=== PATIENT | female | born 1975 | race American Indian/Alaskan Native ===

== ENCOUNTER 2020-06-25 17:49 | Emergency (ER) | payer OTHER, SELFPAY | END 2020-06-25 19:19 | disposition left against medical advice (07) | PROVIDERS: Emergency Provider Emergency Medicine | DX: R10.9 Unspecified abdominal pain (principal) ==

== ENCOUNTER 2020-06-26 09:16 | Emergency (ER) | payer OTHER, SELFPAY ==
--- NOTE | 2020-06-26 09:27 | ED.ABDPAIN ---
HPI - Abdominal Pain General Chief Complaint: Abdominal Pain Stated Complaint: abd pain, bruising Time Seen by Provider: 06/26/20 09:19 Source: patient Mode of arrival: ambulatory Limitations: no limitations History of Present Illness HPI narrative: This is a 44-year-old female with past medical history significant for asthma/COPD, gastroesophageal reflux disease, arthritis, anxiety disorder, depression and surgical history of section and tubal ligation presenting ambulatory with complaint of epigastric abdominal pain ongoing for the past 3 days. States history of reflux will intermittently take a PPI and over the past 3 days or so she has had worsening epigastric pain that is described as burning like and will cause her to be nauseated. States she did take an antacid yesterday during the pain episode after drinking coffee and improved. There is no diarrhea. There is no fever. No recent travel. MD elicited complaint: abdominal pain Pertinent past history: gastritis Onset (ago): day(s) Pain Consistency: intermittent Location: epigastric Severity: mild Quality: burning Radiation: epigastric Migration to: no migration Exacerbating factors: eating Relieving factors: medication and rest Associated symptoms: denies other symptoms Related Data Previous Rx's Medication Instructions Recorded sucralfate [Carafate] 1 g PO BID #14 tab 06/26/20 Allergies Allergy/AdvReac Type Severity Reaction Status Date / Time No Known Allergies Allergy Unverified 03/13/20 16:22 Review of Systems Review of Systems Constitutional: No Weight loss, No Fever, No Chills, No Night Sweats, No Fatigue, No Malaise ENT/Mouth: No Hearing loss, No Ear Pain, No Nasal Congestion, No Sinus Pain, No Hoarseness, No sore throat, No Rhinorrhea, No Swallowing Difficulty Eyes: No Eye Pain, No Swelling, No Redness, No Foreign Body, No Discharge, No Vision Changes Cardiovascular: No Chest Pain, No SOB, No Dyspnea on Exertion, No Orthopnea, No Edema, No Palpitations Respiratory: No Cough, No Sputum, No Wheezing, No Smoke Exposure, No Dyspnea Gastrointestinal: + Nausea, No Vomiting, No Diarrhea, No Constipation, + abdominal Pain, No Hematochezia, No Melena Genitourinary: no irregular bleeding, No Dysuria, No Urinary Frequency, No Hematuria, No Urinary Incontinence, No Urgency, No Flank Pain, No Urinary Flow Changes, No Hesitancy Musculoskeletal: No joint pain, No Myalgias, No Joint Swelling Skin: No Skin Lesions, No rash Neuro: No Weakness, No Numbness, No Paresthesias, No Loss of Consciousness, No Dizziness, No Headache Psych: No Social Issues Heme/Lymph: No Bruising, No Bleeding,No Lymphadenopathy Endocrine: No Polyuria, No Polydipsia, No Temperature Intolerance Yes all other systems are reviewed and are negative Physical Exam Vital Signs: Vital Signs: Last Vital Signs Temp 98.0 F 06/26/20 09:30 Pulse 91 06/26/20 09:30 Resp 16 06/26/20 09:30 BP 123/70 06/26/20 09:30 Pulse Ox 99 06/26/20 09:30 Body Mass Index 34.3 Reviewed Const: General: cooperative and healthy appearing; No acute distress or intoxicated appearing Nutritional Appearance: average body habitus Orientation/consciousness: patient oriented x3 HENMT: Head: Yes normal to inspection Ears: hearing grossly normal bilaterally Eyes: General: appearance normal, both eyes and all related structures Visual Boucher: normal visual boucher by confrontation Neck: Neck: Yes normal visual inspection, No positive Brudzinski's sign, No positive Kernig's sign and No tender Thyroid: Thyroid normal Chest: Chest palpation & inspection: normal inspection of the chest Resp: Effort & Inspection: normal respiratory effort Auscultation: clear to auscultation bilaterally Cardio: Jugular venous distension: no JVD Rhythm: regular rhythm Heart sounds: S1 normal heart sound present and S2 normal heart sound present GI: Inspection: Yes normal to inspection Palpation (GI): Soft to palpation Percussion: Yes normal to percussion Auscultation: normal bowel sounds : General: Yes no CVA tenderness Back/Spine/Pelvis: Back: no CVA tenderness Skin: General skin exam: no rashes or lesions noted Neuro: General: patient oriented x3 Extrem: General: Yes normal to inspection Course Course Course Narrative: Reports feeling significant better after GI cocktail. Essentially no pain at this time. Repeat abdominal exam benign. Hematology study shows that there has been a drop in hemoglobin from 12-10.6 from 2017. Given a drop digital rectal exam was done and negative for occult blood. She does states that she has been on Prilosec on off for standing. Time and does not feel that it works. At this time will give her short course of Carafate and GI follow-up for possible upper GI study. MDM - Abdominal Pain MDM Narrative Medical decision making narrative: Vitals stable. Exam overall reassuring. Will check labs including liver function test and treat with GI cocktail. Differential Diagnosis Differential diagnosis: Likely abdominal pain and gastritis (GERD); Unlikely aortic dissection, acute appendicitis, bowel perforation, calculus of kidney, constipation, diverticulitis, gastroenteritis, pancreatitis, peptic ulcer disease, renal colic and small bowel obstruction Medical Records Attestation: I reviewed the patient's medical records. Lab Data Attestation: I reviewed the patient's lab results. Result diagrams: 06/26/20 09:40 06/26/20 09:40 Labs: Lab Results 06/26/20 06/26/20 06/26/20 Range/Units 09:37 09:40 09:40 WBC 4.7 L (4.8-10.8) X10*3/uL RBC 4.12 L (4.20-5.50) X10*6/uL Hgb 10.6 L (12.0-16.0) g/dl Hct 34.7 L (37-47) % MCV 84.2 (80-98) fL MCH 25.7 L (27.0-33.0) pg MCHC 30.5 L (31.0-35.0) g/dl RDW 15.5 (11.0-16.0) % Plt Count 221 (160-400) X10*3/uL MPV 11.3 (9.4-12.3) fL Immature Gran % (Auto) 0.2 (0.0-0.4) % Neut % (Auto) 60.0 (45-73) % Lymph % (Auto) 31.1 (20-40) % [place] % (Auto) 6.4 (2-11) % Eos % (Auto) 1.7 (0-4) % Baso % (Auto) 0.6 (0-2) % Lymph # (Auto) 1.5 (1.2-4.9) X10*3/uL [place] # (Auto) 0.3 (0.1-1.2) X10*3/uL Eos # (Auto) 0.1 (0.0-0.4) X10*3/uL Baso # (Auto) 0.0 (0.0-0.2) X10*3/uL Abs Immat Gran (auto) 0.01 (0.00-0.03) X10*3/uL Absolute Neuts (auto) 2.8 (2.0-8.3) X10*3/uL Absolute Nucleated RBC 0.000 (0.0-0.012) X10*3/uL Nucleated RBC % (auto) 0.0 (0.0-0.2) /100WBC PT 11.7 (10.8-13.0) SEC INR 1.0 (0.9-1.1) APTT 31.7 (24.1-38.0) SEC Sodium (135-145) mmol/L Potassium (3.3-5.1) mmol/l Chloride (96-108) mmol/L Carbon Dioxide (22-29) mmol/L Anion Gap (12-20) BUN (9-16) mg/dL Creatinine (0.5-1.4) mg/dL Estim Creat Clear Calc Estimated GFR Random Glucose (60-115) mg/dL Calcium (8.4-10.2) mg/dL Total Bilirubin (0.0-1.0) mg/dL AST (5-31) U/L ALT (0-31) U/L Alkaline Phosphatase (39-117) U/L Total Protein (6.5-8.0) g/dL Albumin (3.5-5.0) g/dL Urine Color YELLOW Urine Appearance HAZY Urine pH 6.0 (5.0-8.0) Ur Specific [place] >= 1.030 H (1.005-1.025) Urine Protein NEG (NEG-TRACE) MG/DL Urine Glucose (UA) NEG (NEG) MG/DL Urine Ketones NEG (NEG) MG/DL Urine Blood 1+ H (NEG) Urine Nitrite NEG (NEG) Ur Leukocyte Esterase NEG (NEG) Urine RBC 0-2 (0) /HPF Urine WBC 0 (0-4) /HPF Ur Squamous Epith Cells 2+ /LPF Urine Bacteria NONE /LPF 06/26/20 Range/Units 09:40 WBC (4.8-10.8) X10*3/uL RBC (4.20-5.50) X10*6/uL Hgb (12.0-16.0) g/dl Hct (37-47) % MCV (80-98) fL MCH (27.0-33.0) pg MCHC (31.0-35.0) g/dl RDW (11.0-16.0) % Plt Count (160-400) X10*3/uL MPV (9.4-12.3) fL Immature Gran % (Auto) (0.0-0.4) % Neut % (Auto) (45-73) % Lymph % (Auto) (20-40) % [place] % (Auto) (2-11) % Eos % (Auto) (0-4) % Baso % (Auto) (0-2) % Lymph # (Auto) (1.2-4.9) X10*3/uL [place] # (Auto) (0.1-1.2) X10*3/uL Eos # (Auto) (0.0-0.4) X10*3/uL Baso # (Auto) (0.0-0.2) X10*3/uL Abs Immat Gran (auto) (0.00-0.03) X10*3/uL Absolute Neuts (auto) (2.0-8.3) X10*3/uL Absolute Nucleated RBC (0.0-0.012) X10*3/uL Nucleated RBC % (auto) (0.0-0.2) /100WBC PT (10.8-13.0) SEC INR (0.9-1.1) APTT (24.1-38.0) SEC Sodium 140 (135-145) mmol/L Potassium 4.3 (3.3-5.1) mmol/l Chloride 107 (96-108) mmol/L Carbon Dioxide 26 (22-29) mmol/L Anion Gap 11 L (12-20) BUN 11 (9-16) mg/dL Creatinine 0.83 (0.5-1.4) mg/dL Estim Creat Clear Calc 95.3 Estimated GFR > 60 Random Glucose 91 (60-115) mg/dL Calcium 8.4 (8.4-10.2) mg/dL Total Bilirubin 0.3 (0.0-1.0) mg/dL AST 20 (5-31) U/L ALT 21 (0-31) U/L Alkaline Phosphatase 85 (39-117) U/L Total Protein 6.6 (6.5-8.0) g/dL Albumin 3.9 (3.5-5.0) g/dL Urine Color Urine Appearance Urine pH (5.0-8.0) Ur Specific [place] (1.005-1.025) Urine Protein (NEG-TRACE) MG/DL Urine Glucose (UA) (NEG) MG/DL Urine Ketones (NEG) MG/DL Urine Blood (NEG) Urine Nitrite (NEG) Ur Leukocyte Esterase (NEG) Urine RBC (0) /HPF Urine WBC (0-4) /HPF Ur Squamous Epith Cells /LPF Urine Bacteria /LPF Discharge Plan Discharge Clinical Impression: Abdominal pain, epigastric Patient Disposition: Home, Self-Care Instructions: Diet for Stomach Ulcers and Gastritis (ED), Gastroesophageal Reflux Disease (ED), Abdominal Pain (ED) Additional Instructions: Balanced diet Avoid any large meals, caffeinated drinks, spicy or greasy foods Take your antibiotics as prescribed Return if any concerns or worsening symptoms Follow-up with GI as discussed Thank you Prescriptions: New sucralfate [Carafate] 1 gram tablet 1 g PO BID Qty: 14 RF: 0 Referrals: Shawna Bashir MD [Physician] - [facility] Past Medical History Medical History Anxiety Arthritis COPD (chronic obstructive pulmonary disease) Depressed GERD (gastroesophageal reflux disease) Social History Social History Alcohol intake: never Smoked in Last 30 Days: No Use of substances other than those prescribed or required for medical reasons: No Advance Directives: No Advance Directives Information Provided: No
[2020-06-26 09:30] VITALS: BP 123/70; PULSE 91; RESP 16; TEMP 36.7; O2SAT 99; BMI 34.3
[2020-06-26 09:50] LABS: Basophils Percent Auto 0.6 % (0-2); Eosinophils Absolute Auto 0.1 X10*3/uL (0.0-0.4); Eosinophils Percent Auto 1.7 % (0-4); Hematocrit 34.7 % (37-47); Hemoglobin 10.6 g/dl (12.0-16.0); Imm Gran Abs Auto 0.01 X10*3/uL (0.00-0.03); Imm Gran Pct Auto 0.2 % (0.0-0.4); Lymphocytes Absolute Auto 1.5 X10*3/uL (1.2-4.9); Lymphocytes Percent Auto 31.1 % (20-40); MANUAL DIFF FLAG NO; Mean Corpuscular HGB Conc 30.5 g/dl (31.0-35.0); Mean Corpuscular Hemoglobin 25.7 pg (27.0-33.0); Mean Corpuscular Volume 84.2 fL (80-98); Mean Platelet Volume 11.3 fL (9.4-12.3); Monocytes Absolute Auto 0.3 X10*3/uL (0.1-1.2); Monocytes Percent Auto 6.4 % (2-11); Neutrophils Absolute Auto 2.8 X10*3/uL (2.0-8.3); Platelet Count 221 X10*3/uL (160-400); Red Blood Count 4.12 X10*6/uL (4.20-5.50); Red Cell Distribution Width 15.5 % (11.0-16.0); White Blood Count 4.7 X10*3/uL (4.8-10.8)
[2020-06-26 09:51] LABS: Glucose Urine UA NEG (NEG); Leukocyte Esterase Urine NEG (NEG); Nitrite Urine NEG (NEG); Specific Gravity - Urine >= 1.030 (1.005-1.025); Urine Blood 1+ (NEG); Urine Ketones NEG (NEG); Urine Protein NEG (NEG-TRACE)
[2020-06-26 09:53] LABS: Appearance Urine HAZY; Color Urine YELLOW
[2020-06-26 09:56] LABS: Prothrombin Time 11.7 SEC (10.8-13.0)
[2020-06-26 09:58] LABS: Partial Thromboplastin Time 31.7 SEC (24.1-38.0)
[2020-06-26 10:03] LABS: RBC Urine 0-2 /HPF (0); Squamous Epithelial Cell Urine 2+ /LPF; WBC Urine 0 /HPF (0-4)
[2020-06-26] MEDS: Magnesium Hydrox/Alum Hydrox 30 ML ORAL.SUSP PO (10:10)
[2020-06-26] MEDS: Lidocaine HCl Viscous 2 % 15 ML SOLUTION 10 ML MUCOUS MEM (10:10)
[2020-06-26 10:28] LABS: Alanine Aminotransferase 21 U/L (0-31); Albumin Level 3.9 g/dL (3.5-5.0); Alkaline Phosphatase 85 U/L (39-117); Anion Gap 11 (12-20); Aspartate Amino Transferase 20 U/L (5-31); Bilirubin Total 0.3 mg/dL (0.0-1.0); Blood Urea Nitrogen 11 mg/dL (9-16); Calcium 8.4 mg/dL (8.4-10.2); Carbon Dioxide 26 mmol/L (22-29); Chloride 107 mmol/L (96-108); Creatinine Clr Calc Pharmacy 95.3; Estimated Glomerular Filt Rate > 60; Glucose Random 91 mg/dL (60-115); Potassium 4.3 mmol/l (3.3-5.1); Sodium 140 mmol/L (135-145); Total Protein 6.6 g/dL (6.5-8.0)
== END 2020-06-26 11:09 | disposition home or self-care (01) ==
PROVIDERS: Nurse Practitioner Primary Care; Emergency Provider Emergency Medicine Emergency Medical Services; PCP Physician Assistant
DX: R10.13 Epigastric pain (principal); Z79.899 Other long term (current) drug therapy
CPT/HCPCS: 36415; 80053; 81001; 85025; 85610; 85730; 99283; 99284

== ENCOUNTER → 2020-08-06 10:25 | Outpatient (BNVA) | payer OTHER, SELFPAY | PROVIDERS: PCP Physician Assistant; Visit Provider Physician Assistant | DX: E66.9 Obesity, unspecified (principal); K21.9 Gastro-esophageal reflux disease without esophagitis; Z98.890 Other specified postprocedural states | CPT/HCPCS: 99202 ==

== ENCOUNTER 2020-08-21 11:30 | Emergency (ER) | payer OTHER, SELFPAY ==
[2020-08-21 11:32] VITALS: BP 158/83; PULSE 85; RESP 18; TEMP 36.7; O2SAT 97; BMI 35.2
--- NOTE | 2020-08-21 12:09 | ED.DIZZY ---
HPI - Dizziness General Chief Complaint: Dizziness Stated Complaint: light headed and weak Time Seen by Provider: 08/21/20 12:04 Source: patient Mode of arrival: ambulatory Limitations: no limitations History of Present Illness HPI Narrative: This is a 44-year-old female with past medical history significant for asthma/COPD, gastroesophageal reflux disease, arthritis, anxiety disorder, depression and surgical history of section and tubal ligation also recent dx of Gallstones being followed by GI and [place] [facility] [place] for elective cholecystectomy on August 27 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 There is no neck pain, headache or fever since. There is no ear pain, vision changes, chest pain, abdominal pain, nausea or vomiting. MD elicited complaint: dizziness Onset (ago): day(s) Timing: gradual onset Severity: mild Description: room spinning Context: other (Recent COVID-19 vaccination) History of similar symptoms: No Relieving factors: rest Associated symptoms: denies other symptoms Related Data Home Medications Medication Instructions Recorded Confirmed albuterol sulfate 90 mcg/actuation INHALATION 08/06/20 08/06/20 aerosol inhaler flu vacc [id number] 6mos up(PF) ml IM 08/06/20 08/06/20 ipratropium 0.5 mg-albuterol 3 mg ml INHALATION 08/06/20 08/06/20 (2.5 mg base)/3 mL nebulization soln montelukast 10 mg tablet 10 mg PO DAILY 08/06/20 08/06/20 omeprazole 40 mg capsule,delayed 40 mg PO DAILY 08/06/20 08/06/20 release umeclidinium 62.5 mcg/actuation 1 inh PO DAILY 08/06/20 08/06/20 blister powder for inhalation Previous Rx's Medication Instructions Recorded sucralfate [Carafate] 1 g PO BID #14 tab 06/26/20 meclizine 25 mg PO DAILY PRN #10 tab 08/21/20 Allergies Allergy/AdvReac Type Severity Reaction Status Date / Time No Known Allergies Allergy Unverified 08/06/20 10:36 Review of Systems Review of Systems: Constitutional: No Weight loss, No Fever, No Chills, No Night Sweats, No Fatigue, No Malaise ENT/Mouth: No Hearing loss, No Ear Pain, No Nasal Congestion, No Sinus Pain, No Hoarseness, No sore throat, No Rhinorrhea, No Swallowing Difficulty Eyes: No Eye Pain, No Swelling, No Redness, No Foreign Body, No Discharge, No Vision Changes Cardiovascular: No Chest Pain, No SOB, No Dyspnea on Exertion, No Orthopnea, No Edema, No Palpitations Respiratory: No Cough, No Sputum, No Wheezing, No Dyspnea Gastrointestinal: No Nausea, No Vomiting, No Diarrhea, No Constipation, No abdominal Pain, No Hematochezia, No Melena Genitourinary: no irregular bleeding, No Dysuria, No Urinary Frequency, No Hematuria, No Urinary Incontinence, No Urgency, No Flank Pain, No Urinary Flow Changes, No Hesitancy Musculoskeletal: No joint pain, No Myalgias, No Joint Swelling Skin: No Skin Lesions, No rash Neuro: No Weakness, No Numbness, No Paresthesias, No Loss of Consciousness, + Dizziness as noted per HPI, No Headache Psych: No Social Issues Heme/Lymph: No Bruising, No Bleeding,No Lymphadenopathy Endocrine: No Polyuria, No Polydipsia, No Temperature Intolerance Yes all other systems are reviewed and are negative ENT: Reports Normal hearing present Neurologic: Reports Normal hearing present and Reports Abnormal speech present [facility] Past Medical History Medical History (Updated 08/21/20 @ 13:30 by Minesh Royal NP) Anxiety Arthritis COPD (chronic obstructive pulmonary disease) Depressed GERD (gastroesophageal reflux disease) Surgical History (Updated 08/21/20 @ 11:36 by Tyrell Metz) Hx of section Family History Family History (Updated 08/06/20 @ 10:42 by THAI Petersen) Mother Kidney failure COPD with asthma Heart disease Father No problems noted. Sister No problems noted. Sister No problems noted. Brother No problems noted. Son No problems noted. Son No problems noted. Daughter No problems noted. Daughter No problems noted. Daughter No problems noted. Daughter No problems noted. Daughter No problems noted. Daughter No problems noted. Social History Social History (Updated 08/06/20 @ 10:42 by Fernando J Laguna Amanda, RMA) Alcohol intake: never Smoking Status: Current every day smoker Use of substances other than those prescribed or required for medical reasons: No Advance Directives: No Advance Directives Information Provided: No Physical Exam Vital Signs: Vital Signs: Last Vital Signs Temp 98.1 F 08/21/20 11:32 Pulse 85 08/21/20 11:32 Resp 18 08/21/20 11:32 BP 158/83 H 08/21/20 11:32 Pulse Ox 97 08/21/20 11:32 Body Mass Index 35.2 Reviewed Const: General: cooperative and healthy appearing; No acute distress or intoxicated appearing Nutritional Appearance: average body habitus Orientation/consciousness: patient oriented x3 HENMT: Head: Yes normal to inspection Ears: hearing grossly normal bilaterally Eyes: General: appearance normal, both eyes and all related structures Visual Anderson: normal visual anderson by confrontation Pupils: Equal, round and reactive pupils present EOM: No Nystagmus present (Negative Mcalester-Hallpike) Neck: Neck: Yes normal visual inspection, Yes no meningeal signs, No positive Brudzinski's sign, No positive Kernig's sign and No tender Thyroid: Thyroid normal Chest: Chest palpation & inspection: normal inspection of the chest Resp: Effort & Inspection: normal respiratory effort Auscultation: clear to auscultation bilaterally Cardio: Jugular venous distension: no JVD Rhythm: regular rhythm Heart sounds: S1 normal heart sound present and S2 normal heart sound present GI: Inspection: Yes normal to inspection Palpation (GI): Soft to palpation Percussion: Yes normal to percussion Auscultation: normal bowel sounds : General: Yes no CVA tenderness Back/Spine/Pelvis: Back: no CVA tenderness Skin: General skin exam: no rashes or lesions noted Neuro: General: patient oriented x3, gait normal, moves all extremities, Normal light touch and pain sensation, no meningeal signs, no focal motor deficits, CN's II-XI intact bilaterally, deep tendon reflexes 2+ bilaterally and No Jen Hallpike Cranial nerves: Yes CN's II-XII intact bilaterally, Yes Facial sensation intact/muscles of mastication intact, Yes Intact sense of smell present, Yes Equal, round and reactive pupils present, Yes Normal accommodation reflex present, Yes Bilaterally intact EOM present, Yes Nystagmus not present, Yes Normal facial strength present, Yes Midline tongue present, Yes Normal gag reflex present, Yes Symmetric palate elevation present, Yes Normal hearing present, Yes Ability to bilaterally rotate head present, Yes Ability to bilaterally elevate shoulders present, Yes Individual cranial nerve findings present and No Nystagmus present (Negative Mcalester-Hallpike) Cognition (Neuro): normal cognition Speech: Abnormal speech present Gait exam (Neuro): Normal gait present Motor exam (neuro): 5/5 motor strength present throughout Sensory Exam: Normal double simultaneous stimulation for sensation Extrem: General: Yes normal to inspection NIH Stroke Scale Internal: Initial- Upon Arrival Level of Consciousness: Alert Level of Consciousness Questions: Answers both questions correctly Level of Consciousness Commands: Performs both tasks correctly Best Gaze: Normal Visual: No visual loss Facial Palsy: Normal Motor Arm (Right): No drift Motor Arm (Left): No drift Motor Leg (Right): No drift Motor Leg (Left): No drift Limb Ataxia: Absent Sensory: Normal Best Language: No aphasia Dysarthia: Normal Extinction and Inattention: No abnormality Score: 0 MDM - Dizziness MDM Narrative Medical decision making narrative: Adverse reaction versus mild side effects from COVID-19 vaccination no focal neurological findings in fact feels better. Ambulated around the ED with steady gait. No findings to suggest acute CVA or cerebellar involvement. Will treat with symptomatic management, clear red flag symptoms reviewed with her as to when to return and follow-up as well. She feels comfortable plan. Stable for discharge. Differential Diagnosis Differential diagnosis: Likely adverse reaction to drug and benign paroxysmal positional vertigo; Unlikely orthostatic hypotension, vertebral basilar insufficiency, cerebrovascular accident, acute vestibular neuronitis and transient cerebral ischemia Medical Records Attestation: I reviewed the patient's medical records. Lab Data Attestation: I reviewed the patient's lab results. Discharge Plan Discharge Clinical Impression: Adverse reaction to drug Qualifiers: Encounter type: initial encounter Qualified Code(s): T50.905A - Adverse effect of unspecified drugs, medicaments and biological substances, initial encounter Patient Disposition: Home, Self-Care Instructions: Adverse Drug Reaction (ED) Additional Instructions: Your likely experiencing very mild side effects from COVID vaccine ([employer]) Home care instructions reviewed Return if any concerns or worsening symptoms Follow up as instructed Thank Prescriptions: New meclizine 25 mg tablet 25 mg PO DAILY PRN (Reason: dizziness) Qty: 10 RF: 0 No Action sucralfate [Carafate] 1 gram tablet 1 g PO BID Qty: 14 RF: 0 albuterol sulfate 90 mcg/actuation HFA aerosol inhaler inhalation RF: 0 montelukast 10 mg tablet 10 mg PO DAILY RF: 0 ipratropium-albuterol 0.5 mg-3 mg(2.5 mg base)/3 mL solution for nebulization inhalation RF: 0 omeprazole 40 mg capsule,delayed release(DR/EC) 40 mg PO DAILY RF: 0 Incruse Ellipta 62.5 mcg/actuation blister with device 1 inh PO DAILY RF: 0 Fluzone Quad [id number] (PF) 60 mcg (15 mcg x 4)/0.5 mL syringe IM RF: 0 Referrals: Richmond Prince MD [Primary Care Provider] - 5 days Stand Alone Forms: Work/School Release
[2020-08-21] MEDS: Meclizine HCl 25 MG TABLET PO (12:47)
== END 2020-08-21 13:39 | disposition home or self-care (01) ==
PROVIDERS: Emergency Provider Emergency Medicine; PCP Internal Medicine
DX: R42 Dizziness and giddiness (principal); T50.Z95A Adverse effect of other vaccines and biological substances, initial encounter; Y92.9 Unspecified place or not applicable
CPT/HCPCS: 99283

== ENCOUNTER 2020-12-16 22:56 | Emergency (ER) | payer OTHER, SELFPAY ==
--- NOTE | 2020-12-16 23:40 | ED.SKABFB ---
HPI - Skin/Abscess/Foreign Bdy General Chief complaint: Skin/Abscess/Foreign Body Stated complaint: Rash Time Seen by Provider: 12/16/20 23:27 Source: patient Mode of arrival: ambulatory Limitations: no limitations History of Present Illness HPI narrative: Patient presents to the ED for itchy rash on neck since Tuesday. Patient states rash occurred after putting a shirt that was tight on her neck. Patient denies rash on rest of her body body. Patient denies any swelling of lips, swelling of tongue, shortness of breath, or sensation of throat closing. Related Data Home Medications Medication Instructions Recorded Confirmed albuterol sulfate 90 mcg/actuation INHALATION 08/06/20 08/06/20 aerosol inhaler flu vacc [id number] 6mos up(PF) ml IM 08/06/20 08/06/20 ipratropium 0.5 mg-albuterol 3 mg ml INHALATION 08/06/20 08/06/20 (2.5 mg base)/3 mL nebulization soln montelukast 10 mg tablet 10 mg PO DAILY 08/06/20 08/06/20 omeprazole 40 mg capsule,delayed 40 mg PO DAILY 08/06/20 08/06/20 release umeclidinium 62.5 mcg/actuation 1 inh PO DAILY 08/06/20 08/06/20 blister powder for inhalation Previous Rx's Medication Instructions Recorded sucralfate [Carafate] 1 g PO BID #14 tab 06/26/20 meclizine 25 mg PO DAILY PRN #10 tab 08/21/20 diphenhydramine HCl [Benadryl] 25 mg PO BEDTIME PRN #30 cap 12/17/20 famotidine [Pepcid] 20 mg PO BID #20 tab 12/17/20 hydrocortisone 1 appl TOPICAL BID PRN 9 Days #20 g 12/17/20 Allergies Allergy/AdvReac Type Severity Reaction Status Date / Time No Known Allergies Allergy Verified 12/17/20 00:03 Review of Systems Constitutional: Constitutional: Reports as per HPI and Reports no additional constitutional complaints Eyes: Eyes: Reports as per HPI and Reports no additional eye complaints ENT: Reports system reviewed and no additional complaints, except as documented and Reports as per HPI Comments: Neck rash Cardiovascular: Cardiovascular: Reports as per HPI and Reports no additional cardiovascular complaints Respiratory: Respiratory: Reports as per HPI and Reports no additional respiratory complaints Gastrointestinal: Gastrointestinal: Reports as per HPI and Reports no additional gastrointestinal complaints Genitourinary: Genitourinary: Reports no additional female genitourinary complaints and Reports as per HPI Musculoskeletal: Musculoskeletal: Reports no additional musculoskeletal complaints and Reports as per HPI Neurologic: Reports system reviewed and no additional complaints, except as documented and Reports as per HPI Psychiatric: Psychiatric: Reports no additional psychiatric complaints and Reports as per HPI [facility] Past Medical History Medical History (Updated 12/16/20 @ 23:59 by ANN Perez) Anxiety Arthritis COPD (chronic obstructive pulmonary disease) Depressed GERD (gastroesophageal reflux disease) Surgical History (Updated 08/21/20 @ 11:36 by Tyrell Metz) Hx of section Family History Family History (Updated 08/06/20 @ 10:42 by Fernando Patel [facility]) Mother Kidney failure COPD with asthma Heart disease Father No problems noted. Sister No problems noted. Sister No problems noted. Brother No problems noted. Son No problems noted. Son No problems noted. Daughter No problems noted. Daughter No problems noted. Daughter No problems noted. Daughter No problems noted. Daughter No problems noted. Daughter No problems noted. Social History Social History (Updated 08/06/20 @ 10:42 by Fernando Patel [place]) Alcohol intake: never Patient Tobacco Use Status: Current everyday Tobacco user Use of substances other than those prescribed or required for medical reasons: No Advance Directives: No Advance Directives Information Provided: No Patient : No Physical Exam Vital Signs: Vital Signs: Last Vital Signs Temp 98.6 F 12/16/20 23:53 Pulse 78 12/16/20 23:53 Resp 14 12/16/20 23:53 BP 146/73 H 12/16/20 23:53 Pulse Ox 96 12/16/20 23:53 Body Mass Index 35.0 Const: General: cooperative, healthy appearing, comfortable, no acute distress, well developed, alert, awake and Physically active Orientation/consciousness: patient oriented x3 HENMT: Other: Negative for tongue swelling, lip swelling, uvula swelling Head: Yes normal to inspection, Yes No palpable skull fracture present, Yes normocephalic, Yes atraumatic, No abrasion, No Acrocyanosis present, No Dong's sign, No contusion, No cranial bruits, No hematoma, No laceration, No occipital foramen tenderness, No palpable skull fracture, No raccoon eyes, No scalp lesion, No scalp tenderness, No Temporal artery tenderness present and No periorbital ecchymosis Eyes: General: appearance normal, both eyes and all related structures Neck: Other: positive for hives contact dermatits on anterior of neck. Neck: Yes normal visual inspection, Yes full ROM, Yes no lymphadenopathy, Yes no meningeal signs, Yes trachea midline, Yes supple and No tender Chest: Chest palpation & inspection: normal inspection of the chest and normal palpation of entire chest wall Resp: Effort & Inspection: normal respiratory effort and able to speak in complete sentences Auscultation: clear to auscultation bilaterally Cardio: Jugular venous distension: no JVD Heart sounds: S1 normal heart sound present and S2 normal heart sound present GI: Inspection: Yes normal to inspection and No abdominal wall ecchymosis Palpation (GI): nontender : General: No CVA tenderness and Yes no CVA tenderness Back/Spine/Pelvis: Back: no CVA tenderness, No CVA tenderness and No back tenderness Skin: General skin exam: no rashes or lesions noted and elasticity normal Neuro: General: patient oriented x3, gait normal, no meningeal signs and CN's II-XI intact bilaterally Cranial nerves: Yes CN's II-XII intact bilaterally Extrem: General: Yes normal to inspection and Yes full ROM Psych: Appearance: grossly normal, well kempt and not disheveled Course Course Course Narrative: contact dermatitis. Reevaluation(s) Reevaluation #1: Patient discharged with benadryl. hydrocortisone, and pepcid Time: 23:55 MDM - Skin/Abscess/Foreign Bdy MDM Narrative Medical decision making narrative: Contact dermaitis Discharge Plan Discharge Clinical Impression: Contact dermatitis Patient Disposition: Home, Self-Care Instructions: Contact Dermatitis (ED) Additional Instructions: Return to the ED immediately for tongue swelling, lip swelling, uvula swelling, shortess of breath, worsening rash, fever, and chills. Prescriptions: New diphenhydramine HCl [Benadryl] 25 mg capsule 25 mg PO BEDTIME PRN (Reason: itchiness) Qty: 30 RF: 0 famotidine [Pepcid] 20 mg tablet 20 mg PO BID Qty: 20 RF: 0 hydrocortisone 2.5 % cream 1 appl topical BID PRN (Reason: rash) 9 Days Qty: 20 RF: 0 No Action meclizine 25 mg tablet 25 mg PO DAILY PRN (Reason: dizziness) Qty: 10 RF: 0 sucralfate [Carafate] 1 gram tablet 1 g PO BID Qty: 14 RF: 0 albuterol sulfate 90 mcg/actuation HFA aerosol inhaler inhalation RF: 0 montelukast 10 mg tablet 10 mg PO DAILY RF: 0 ipratropium-albuterol 0.5 mg-3 mg(2.5 mg base)/3 mL solution for nebulization inhalation RF: 0 omeprazole 40 mg capsule,delayed release(DR/EC) 40 mg PO DAILY RF: 0 Incruse Ellipta 62.5 mcg/actuation blister with device 1 inh PO DAILY RF: 0 Fluzone Quad [id number] (PF) 60 mcg (15 mcg x 4)/0.5 mL syringe IM RF: 0 Referrals: Richmond Prince MD [Primary Care Provider] - 2 days (Contact dermatitis) Print Language: Iraqi
[2020-12-16 23:53] VITALS: BP 146/73; PULSE 78; RESP 14; TEMP 37; O2SAT 96; BMI 35.0
[2020-12-17] MEDS: diphenhydrAMINE HCL 25 MG TABLET PO (00:13)
[2020-12-17] MEDS: Famotidine 20 MG TABLET PO (00:13)
== END 2020-12-17 00:19 | disposition home or self-care (01) ==
PROVIDERS: Emergency Provider Emergency Medicine; PCP Internal Medicine
DX: L25.9 Unspecified contact dermatitis, unspecified cause (principal); J44.9 Chronic obstructive pulmonary disease, unspecified; Z79.899 Other long term (current) drug therapy
CPT/HCPCS: 99283; 99284; Q0163

== ENCOUNTER 2021-05-24 17:25 | Emergency (ER) | payer OTHER, SELFPAY | END 2021-05-24 20:37 | disposition left against medical advice (07) | PROVIDERS: Emergency Provider Emergency Medicine | DX: R10.9 Unspecified abdominal pain (principal); J02.9 Acute pharyngitis, unspecified ==

== ENCOUNTER 2021-09-21 09:29 | Emergency (ER) | payer OTHER, SELFPAY ==
[2021-09-21 10:07] VITALS: BP 141/82; PULSE 100; RESP 20; TEMP 37.6; O2SAT 99
--- NOTE | 2021-09-21 10:36 | ED_ITS ---
HPI - General Adult General Chief complaint: Upper Respiratory Symptoms Stated complaint: fever vomiting sore throat body aches weakness Time Seen by Provider: 09/21/21 10:35 Source: patient Mode of arrival: ambulatory Limitations: no limitations History of Present Illness HPI narrative: Patient is a 46 year old female presenting to the emergency department today with a sore throat and body aches since yesterday. Patient states that since yesterday, she has had a sore throat and body aches. Patient states that her daughter is also sick with the same symptoms. Patient denies any dizziness, lightheadedness, abdominal pain, nausea, vomiting, fever, chills, blurry vision, double vision, loss of vision, chest pain, difficulty breathing, shortness of breath, back pain, night sweats, pain with urination, increased urinary frequency, increased urinary urgency, blood in her urine or stool, syncope or a near syncopal episode, recent trauma or falls, bowel incontinence, bladder incontinence, bowel retention, bladder retention, or any other complaints at this time. Onset (ago): day(s) Radiation: non-radiation Severity: mild Severity scale (1-10): 3 Quality: dull Pain Consistency: constant Relieving factors: none Exacerbating factors: none Associated symptoms: denies other symptoms Treatments prior to arrival: none Related Data Home Medications Medication Instructions Recorded Confirmed albuterol sulfate 90 mcg/actuation INHALATION 08/06/20 08/06/20 aerosol inhaler flu vacc [id number] 6mos up(PF) ml IM 08/06/20 08/06/20 ipratropium 0.5 mg-albuterol 3 mg ml INHALATION 08/06/20 08/06/20 (2.5 mg base)/3 mL nebulization soln montelukast 10 mg tablet 10 mg PO DAILY 08/06/20 08/06/20 omeprazole 40 mg capsule,delayed 40 mg PO DAILY 08/06/20 08/06/20 release umeclidinium 62.5 mcg/actuation 1 inh PO DAILY 08/06/20 08/06/20 blister powder for inhalation Previous Rx's Medication Instructions Recorded sucralfate 1 gram tablet (Carafate) 1 g PO BID #14 tab 06/26/20 meclizine 25 mg tablet 25 mg PO DAILY PRN #10 tab 02/25/21 diphenhydramine HCl 25 mg capsule 25 mg PO BEDTIME PRN #30 cap 12/17/20 (Benadryl) famotidine 20 mg tablet (Pepcid) 20 mg PO BID #20 tab 12/17/20 hydrocortisone 2.5 % topical cream 1 appl TOPICAL BID PRN 9 Days #20 g 12/17/20 penicillin V potassium 500 mg 500 mg PO BID 10 Days #20 tab 09/21/21 tablet Allergies Allergy/AdvReac Type Severity Reaction Status Date / Time No Known Allergies Allergy Verified 12/17/20 00:03 Review of Systems Constitutional: Constitutional: Reports no additional constitutional complaints, Reports body ache(s), Denies chills, Denies fever(s) and Denies night sweats Eyes: Eyes: Reports no additional eye complaints, Denies blurry vision, Denies change in vision, Denies diplopia, Denies eye discharge, Denies loss of vision and Denies eye pain ENT: Denies dizziness and Reports sore throat Cardiovascular: Cardiovascular: Reports no additional cardiovascular complaints, Denies chest pain, Denies lightheadedness, Denies Loss of Consciousness and Denies dyspnea Respiratory: Respiratory: Reports no additional respiratory complaints and Denies dyspnea Gastrointestinal: Gastrointestinal: Reports no additional gastrointestinal complaints, Denies abdominal pain, Denies melena, Denies hematochezia, Denies change in bowel habits and Denies change in stool character Genitourinary: Genitourinary: Denies hematuria, Denies urinary frequency, Denies dysuria, Denies urinary incontinence, Denies urinary hesitancy and Denies urinary urgency Musculoskeletal: Musculoskeletal: Reports no additional musculoskeletal complaints, Denies numbness and Denies tingling Neurologic: Denies dizziness, Denies loss of vision, Denies numbness and D enies tingling Psychiatric: Psychiatric: Reports no additional psychiatric complaints Endocrine: Endocrine: Reports no additional endocrine complaints Hematologic/Lymphatic: Hematologic/Lymphatic: Reports no additional hematologic/lymphatic complaints Allergic/Immunologic: Allergic/Immunologic: Reports no additional allergic/immunologic complaints PMFSH Past Medical History Attestation statement: The following information was validated with the patient. Source: old records reviewed Medical History Anxiety Arthritis COPD (chronic obstructive pulmonary disease) Depressed GERD (gastroesophageal reflux disease) Surgical History Hx of section Family History Family History Mother Kidney failure COPD with asthma Heart disease Father No problems noted. Sister No problems noted. Sister No problems noted. Brother No problems noted. Son No problems noted. Son No problems noted. Daughter No problems noted. Daughter No problems noted. Daughter No problems noted. Daughter No problems noted. Daughter No problems noted. Daughter No problems noted. Social History Social History Alcohol intake: never Patient Tobacco Use Status: Current everyday Tobacco user Advance Directives: Yes Advance Directives Information Provided: Yes Advance Directives on File: No Patient : No Physical Exam ED Vital Signs: Vital Signs - 24 hr 09/21/21 10:07 09/21/21 10:41 Temperature 99.6 F 96.8 F Pulse Rate 100 92 Respiratory Rate 20 18 Blood Pressure 141/82 H 126/79 Pulse Oximetry 99 97 BMI result Body Mass Index 33.3 Const General: cooperative, no acute distress, alert and awake Nutritional Appearance: well nourished Orientation/consciousness: patient oriented x3 Limitations: no limitations HENMT Head: Yes normal to inspection and Yes atraumatic Ears: hearing grossly normal bilaterally and external ears normal General nose exam: Normal external nose present, no nasal discharge noted and no epistaxis Face and sinus: Yes normal facial exam, No abrasion and No laceration Mouth: Normal oral and palatal mucosa present, no drooling and no muffled voice Throat: Yes other (erythema to the posterior pharynx) Eyes General: appearance normal, both eyes and all related structures Periorbital: periorbital findings normal Eyelids: Yes eyelids normal Conjunctivae: conjunctivae normal Pupils: Equal, round and reactive pupils present EOM: EOMs intact bilaterally Neck Neck: Yes normal visual inspection, Yes full ROM and Yes no lymphadenopathy Chest Chest palpation & inspection: normal inspection of the chest Resp Effort & Inspection: normal respiratory effort and able to speak in complete sentences Auscultation: clear to auscultation bilaterally Cardio Rate: regular rate Rhythm: regular rhythm GI Inspection: Yes normal to inspection Neuro General: patient oriented x3 and moves all extremities Cranial nerves: Yes Equal, round and reactive pupils present Cognition (Neuro): normal cognition Motor exam (neuro): 5/5 motor strength present throughout Sensory Exam: Normal double simultaneous stimulation for sensation Coordination: [id number] test normal Extrem General: Yes normal to inspection, Yes full ROM and Yes capillary refill normal Psych Appearance: grossly normal Mental Status: mental status grossly normal Affect: normal affect Attitude: cooperative Thought process: Normal thought process present Thought content: Normal thought content present Insight: Good insight present (Psych) Medical Decision Making MDM Narrative Medical decision making narrative: Patient is a 46 year old female presenting to the emergency department today with a sore throat and body aches. Patient's physical exam showed mild erythema to the posterior pharynx but was otherwise unremarkable. Patient's rapid COVID- 19 and influenza swabs were negative however, patient's strep test was positive. I explained my physical exam findings as well as all test results to the patient. I answered all questions asked by the patient. I stressed the importance of the patient taking her medication as prescribed. I stressed the importance of the patient following up with her primary care provider. I stressed the importance of the patient returning to the emergency department immediately if her symptoms were to worsen or if she were to develop any dizziness, shortness of breath, difficulty breathing, chest pain, blurry vision, loss of vision, nausea, vomiting, abdominal pain, fever, chills, back pain, or any other complaints. Patient verbalized agreement and understanding with this treatment plan and discharge. Differential Diagnosis Differential Diagnosis: COVID-19, influenza, URI, strep pharyngitis Medical Records Medical records reviewed: Yes I reviewed the patient's medical records. Lab Data Lab results reviewed: Yes I reviewed the patient's lab results. Labs: Lab Results 09/21/21 09/21/21 09/21/21 Range/Units 10:57 10:57 10:57 COVID-19 (LISS) Negative (Negative) COVID-19 Clin Com See Note Influenza Type A (MAU) Negative (Negative) Influenza Type B (MAU) Negative (Negative) Influenza A & B Note See Note S. pyogenes GrpA MAU Positive A (Negative) Discharge Plan Discharge Clinical Impression: Pharyngitis Patient Disposition: Home, Self-Care Instructions: Pharyngitis (ED) Additional Instructions: Follow up with your primary care provider. Return to the emergency department immediately if your symptoms worsen or if you develop any dizziness, shortness of breath, difficulty breathing, chest pain, blurry vision, loss of vision, nausea, vomiting, abdominal pain, fever, chills, back pain, or any other complaints. Prescriptions: New penicillin V potassium 500 mg tablet 500 mg PO BID 10 Days Qty: 20 0RF No Action meclizine 25 mg tablet 25 mg PO DAILY PRN (Reason: dizziness) Qty: 10 0RF sucralfate [Carafate] 1 gram tablet 1 g PO BID Qty: 14 0RF diphenhydramine HCl [Benadryl] 25 mg capsule 25 mg PO BEDTIME PRN (Reason: itchiness) Qty: 30 0RF famotidine [Pepcid] 20 mg tablet 20 mg PO BID Qty: 20 0RF hydrocortisone 2.5 % cream 1 appl topical BID PRN (Reason: rash) 9 Days Qty: 20 0RF albuterol sulfate 90 mcg/actuation HFA aerosol inhaler inhalation 0RF montelukast 10 mg tablet 10 mg PO DAILY 0RF ipratropium-albuterol 0.5 mg-3 mg(2.5 mg base)/3 mL solution for nebulization inhalation 0RF omeprazole 40 mg capsule,delayed release(DR/EC) 40 mg PO DAILY 0RF Incruse Ellipta 62.5 mcg/actuation blister with device 1 inh PO DAILY 0RF Fluzone Quad [id number] (PF) 60 mcg (15 mcg x 4)/0.5 mL syringe IM 0RF Referrals: ED Physician,Generic [Physician] - 2 days (Follow up with your PCP. ) Stand Alone Forms: Work/School Release Interventions: ED Discharge Assessment Last Done: 09/21/21 12:04 Discharge Date/Time: 09/21/21 12:07 Print Language: Vietnamese
[2021-09-21 10:41] VITALS: BP 126/79; PULSE 92; RESP 18; TEMP 36; O2SAT 97; BMI 33.3
[2021-09-21] MEDS: Ondansetron ODT 4 MG TAB.RAPDIS TRANSLINGU (11:05)
[2021-09-21 11:29] LABS: IDNOW Serial# 08D9AD1C; Influenza A Negative (Negative); Influenza B2 Negative (Negative)
[2021-09-21 11:31] LABS: COVID-19 Test Negative (Negative); IDNOW Serial# 16C4AD1C
[2021-09-21 11:39] LABS: IDNOW Serial# 08D9AD1C; Strep A Nucleic Acid Positive (Negative)
== END 2021-09-21 12:07 | disposition home or self-care (01) ==
PROVIDERS: Physician Assistant Medical; Emergency Provider Emergency Medicine
DX: J02.0 Streptococcal pharyngitis (principal); Z20.822 Contact with and (suspected) exposure to COVID-19; R50.9 Fever, unspecified
CPT/HCPCS: 87502; 87635; 87651; 99282; 99283

== ENCOUNTER 2021-11-18 09:40 | Outpatient (REF) | payer OTHER, SELFPAY ==
[2021-11-18 10:16] LABS: COVID-19 Test Positive (Negative)
== END 2021-11-18 09:41 | disposition home or self-care (01) ==
LOC: HO.LAB 09:40
PROVIDERS: Visit Provider Internal Medicine
DX: Z20.822 Contact with and (suspected) exposure to COVID-19 (principal)
CPT/HCPCS: 87635; C9803

== ENCOUNTER 2021-12-14 16:00 | Emergency (ER) | payer OTHER, SELFPAY ==
--- NOTE | ~2021-12-14 | XR_ITS ---
EXAMINATION: XR FOOT, LEFT CLINICAL INFORMATION: Pain COMPARISON: None TECHNIQUE: AP, lateral, and oblique views of the left foot. FINDINGS: The bones and soft tissues are normal. No fracture. Alignment is anatomic. Joint spaces are maintained. XR/XR foot LT min 3V IMPRESSION: No significant osseous changes to explain patient's pain symptoms.
[2021-12-14 16:31] VITALS: BP 144/82; PULSE 80; RESP 20; TEMP 36.6; O2SAT 97; BMI 33.3
--- NOTE | 2021-12-14 17:57 | ED_ITS ---
HPI - General Adult General Chief complaint: Extremity Injury, Lower Stated complaint: Lump on Top of L Foot No Injury Time Seen by Provider: 12/14/21 17:57 Source: patient Mode of arrival: ambulatory Limitations: no limitations History of Present Illness HPI narrative: Patient is a 46 year old female presenting to the emergency department today with a growth to the top of her left foot. Patient states that she has had this growth for years and lately it has gotten bigger and hurt more. Patient denies any dizziness, lightheadedness, abdominal pain, nausea, vomiting, fever, chills, blurry vision, double vision, loss of vision, chest pain, difficulty breathing, shortness of breath, back pain, night sweats, pain with urination, increased urinary frequency, increased urinary urgency, blood in her urine or stool, syncope or a near syncopal episode, recent trauma or falls, bowel incontinence, bladder incontinence, bowel retention, bladder retention, or any other complaints at this time. Onset (ago): year(s) Location: left and lower extremity (foot) Radiation: non-radiation Severity: mild Severity scale (1-10): 2 Quality: dull Pain Consistency: constant Relieving factors: none Exacerbating factors: none Associated symptoms: denies other symptoms Treatments prior to arrival: none Related Data Home Medications Medication Instructions Recorded Confirmed albuterol sulfate 90 mcg/actuation inhalation 08/06/20 08/06/20 aerosol inhaler flu vacc [id number] 6mos up(PF) ml IM 08/06/20 08/06/20 ipratropium 0.5 mg-albuterol 3 mg ml inhalation 08/06/20 08/06/20 (2.5 mg base)/3 mL nebulization soln montelukast 10 mg tablet 10 mg PO DAILY 08/06/20 08/06/20 omeprazole 40 mg capsule,delayed 40 mg PO DAILY 08/06/20 08/06/20 release umeclidinium 62.5 mcg/actuation 1 inh PO DAILY 08/06/20 08/06/20 blister powder for inhalation Previous Rx's Medication Instructions Recorded sucralfate 1 gram tablet (Carafate) 1 g PO BID #14 tabs 06/26/20 meclizine 25 mg tablet 25 mg PO DAILY PRN dizziness #10 08/21/20 tabs diphenhydramine HCl 25 mg capsule 25 mg PO BEDTIME PRN itchiness #30 12/17/20 (Benadryl) caps famotidine 20 mg tablet (Pepcid) 20 mg PO BID #20 tabs 12/17/20 hydrocortisone 2.5 % topical cream 1 appl topical BID PRN rash 9 days 12/17/20 #20 grams penicillin V potassium 500 mg 500 mg PO BID 10 days #20 tabs 09/21/21 tablet Allergies Allergy/AdvReac Type Severity Reaction Status Date / Time No Known Allergies Allergy Verified 12/17/20 00:03 Review of Systems Constitutional: Constitutional: Reports no additional constitutional complaints, Denies chills, Denies fever(s) and Denies night sweats Eyes: Eyes: Reports no additional eye complaints, Denies blurry vision, Denies change in vision, Denies diplopia, Denies eye discharge, Denies loss of vision and Denies eye pain ENT: Denies dizziness Cardiovascular: Cardiovascular: Reports no additional cardiovascular complaints, Denies chest pain, Denies lightheadedness, Denies Loss of Consciousness and Denies dyspnea Respiratory: Respiratory: Reports no additional respiratory complaints and Denies dyspnea Gastrointestinal: Gastrointestinal: Reports no additional gastrointestinal complaints, Denies abdominal pain, Denies melena, Denies hematochezia, Denies change in bowel habits and Denies change in stool character Genitourinary: Genitourinary: Denies hematuria, Denies urinary frequency, Denies dysuria, Denies urinary incontinence, Denies urinary hesitancy and Denies urinary urgency Musculoskeletal: Musculoskeletal: Reports no additional musculoskeletal complaints, Denies numbness and Denies tingling Comments: left foot growth Neurologic: Denies dizziness, Denies loss of vision, Denies numbness and Denies tingling Psychiatric: Psychiatric: Reports no additional psychiatric complaints Endocrine: Endocrine: Reports no additional endocrine complaints Hematologic/Lymphatic: Hematologic/Lymphatic: Reports no additional hematologic/lymphatic complaints Allergic/Immunologic: Allergic/Immunologic: Reports no additional al lergic/immunologic complaints [facility] Past Medical History Attestation statement: The following information was validated with the patient. Source: old records reviewed Medical History Anxiety Arthritis COPD (chronic obstructive pulmonary disease) Depressed Surgical History Hx of section Family History Family History Mother Kidney failure COPD with asthma Heart disease Father No problems noted. Sister No problems noted. Sister No problems noted. Brother No problems noted. Son No problems noted. Son No problems noted. Daughter No problems noted. Daughter No problems noted. Daughter No problems noted. Daughter No problems noted. Daughter No problems noted. Daughter No problems noted. Social History Social History Alcohol intake: never Patient Tobacco Use Status: Current everyday Tobacco user Advance Directives: No Advance Directives Information Provided: No Physical Exam ED Vital Signs: Vital Signs - 24 hr 12/14/21 16:31 Temperature 97.9 F Pulse Rate 80 Respiratory Rate 20 Blood Pressure 144/82 H Pulse Oximetry 97 Oxygen Delivery Method Room Air BMI result Body Mass Index 33.3 Const General: cooperative, no acute distress, alert and awake Nutritional Appearance: well nourished Orientation/consciousness: patient oriented x3 Limitations: no limitations HENMT Head: Yes normal to inspection and Yes atraumatic Ears: hearing grossly normal bilaterally and external ears normal General nose exam: Normal external nose present, no nasal discharge noted and no epistaxis Face and sinus: Yes normal facial exam, No abrasion and No laceration Mouth: Normal oral and palatal mucosa present, no drooling and no muffled voice Eyes General: appearance normal, both eyes and all related structures Periorbital: periorbital findings normal Eyelids: Yes eyelids normal Conjunctivae: conjunctivae normal Pupils: Equal, round and reactive pupils present EOM: EOMs intact bilaterally Neck Neck: Yes normal visual inspection, Yes full ROM and Yes no lymphadenopathy Chest Chest palpation & inspection: normal inspection of the chest Resp Effort & Inspection: normal respiratory effort and able to speak in complete sentences Auscultation: clear to auscultation bilaterally Cardio Rate: regular rate Rhythm: regular rhythm GI Inspection: Yes normal to inspection Neuro General: patient oriented x3 and moves all extremities Cranial nerves: Yes Equal, round and reactive pupils present Cognition (Neuro): normal cognition Motor exam (neuro): 5/5 motor strength present throughout Sensory Exam: Normal double simultaneous stimulation for sensation Coordination: [id number] test normal Extrem Other: small growth to the dorsal aspect of the left foot General: Yes full ROM and Yes capillary refill normal Psych Appearance: grossly normal Mental Status: mental status grossly normal Affect: normal affect Attitude: cooperative Thought process: Normal thought process present Thought content: Normal thought content present Insight: Good insight present (Psych) Medical Decision Making MDM Narrative Medical decision making narrative: Patient is a 46 year old female presenting to the emergency department today with left foot pain. Patient's physical exam showed a small growth to the top of the left foot but was otherwise unremarkable. Patient's left foot x-ray showed no acute process. I explained my physical exam findings as well as all test results to the patient. I answered all questions asked by the patient. I stressed the importance of the patient taking her medication as prescribed. I stressed the importance of the patient following up with her primary care provider and a general surgeon. I stressed the importance of the patient returning to the emergency department immediately if her symptoms were to worsen or if she were to develop any dizziness, shortness of breath, difficulty kellen athing, chest pain, blurry vision, loss of vision, nausea, vomiting, abdominal pain, fever, chills, back pain, or any other complaints. Patient verbalized agreement and understanding with this treatment plan and discharge. Differential Diagnosis Differential Diagnosis: left foot pain, neuroma Medical Records Medical records reviewed: Yes I reviewed the patient's medical records. Imaging Data Left foot x-ray: Attestation: I personally reviewed and interpreted this imaging study as follows: My impression: No acute process. Radiologist's impression: EXAMINATION: XR FOOT, LEFT CLINICAL INFORMATION: Pain? COMPARISON: None? TECHNIQUE: AP, lateral, and oblique views of the left foot. FINDINGS: The bones and soft tissues are normal. No fracture. Alignment is anatomic. Joint spaces are maintained.? XR/XR foot LT min 3V IMPRESSION: No significant osseous changes to explain patient's pain symptoms. Dictated By: Suraj Giang MD Signed By: Electronically signed by Suraj Giang MD 12/14/21 [id number] Discharge Plan Discharge Clinical Impression: Neuroma Patient Disposition: Home, Self-Care Instructions: [facility] Neuroma (ED) Additional Instructions: Follow up with your primary care provider and a general surgeon. Return to the emergency department immediately if your symptoms worsen or if you develop any dizziness, shortness of breath, difficulty breathing, chest pain, blurry vision, loss of vision, nausea, vomiting, abdominal pain, fever, chills, back pain, or any other complaints. Prescriptions: No Action meclizine 25 mg tablet 25 mg PO DAILY PRN (Reason: dizziness) Qty: 10 0RF sucralfate [Carafate] 1 gram tablet 1 g PO BID Qty: 14 0RF diphenhydramine HCl [Benadryl] 25 mg capsule 25 mg PO BEDTIME PRN (Reason: itchiness) Qty: 30 0RF famotidine [Pepcid] 20 mg tablet 20 mg PO BID Qty: 20 0RF hydrocortisone 2.5 % cream 1 appl topical BID PRN (Reason: rash) 9 Days Qty: 20 0RF penicillin V potassium 500 mg tablet 500 mg PO BID 10 Days Qty: 20 0RF albuterol sulfate 90 mcg/actuation HFA aerosol inhaler inhalation montelukast 10 mg tablet 10 mg PO DAILY ipratropium-albuterol 0.5 mg-3 mg(2.5 mg base)/3 mL solution for nebulization inhalation omeprazole 40 mg capsule,delayed release(DR/EC) 40 mg PO DAILY Incruse Ellipta 62.5 mcg/actuation blister with device 1 inh PO DAILY Fluzone Quad [id number] (PF) 60 mcg (15 mcg x 4)/0.5 mL syringe IM Referrals: [facility] [place] General Surgeons [Provider Group] (Call and establish with a general surgeon. ) [facility] [place] Family Medicine [Provider Group] (Call to establish and follow up with a primary care provider. If you already have a primary care provider, call and follow up with their office.) [facility] [place] Primary Care, Mario [Provider Group] (Call to establish and follow up with a primary care provider. If you already have a primary care provider, call and follow up with their office.) [facility] [place] Primary Care,Jorge [Provider Group] (Call to establish and follow up with a primary care provider. If you already have a primary care provider, call and follow up with their office.) Stand Alone Forms: Work/School Release Print Language: Latvian
== END 2021-12-14 19:38 | disposition home or self-care (01) ==
PROVIDERS: Emergency Provider Emergency Medicine
DX: G57.62 Lesion of plantar nerve, left lower limb (principal); M79.672 Pain in left foot; Z79.899 Other long term (current) drug therapy
CPT/HCPCS: 73630; 99283

== ENCOUNTER 2022-02-19 07:58 | Emergency (ER) | payer OTHER, SELFPAY ==
[2022-02-19 09:11] VITALS: BP 126/84; PULSE 81; RESP 18; TEMP 36.1; O2SAT 98; BMI 33.8
--- NOTE | 2022-02-19 09:20 | ED.NAVMDI ---
HPI - Nausea/Vomiting/Diarrhea General Chief complaint: Nausea/Vomiting/Diarrhea Stated complaint: vomiting/throat pain/abd pain Time Seen by Provider: 02/19/22 09:20 Source: patient Mode of arrival: ambulatory Limitations: no limitations History of Present Illness HPI Narrative: 46 yo female with history of GERD, obesity, chronic nausea and vomiting who presents to the ER for evaluation of worsening symptoms. She reports that for the last 5 years she has had daily vomiting episodes. 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 She has not been on any antiemetics. She denies any food allergy testing. She denies any specific sensitivities to food except for dairy. She tries to avoid dairy. She reports her vomiting happens after she eats, almost after every meal. She reports she vomited 4 times yesterday. She is now having increased throat pain from the vomiting. She also reports gagging on phlegm and postnasal drip which is making her vomiting worse. She denies any abdominal pain but reports that her ribs are sore from dry heaving and vomiting. She denies any substance abuse, including marijuana. MD elicited complaint: nausea and vomiting Onset (ago): year(s) Description of vomiting: food contents and watery Associated nausea: Yes Associated abdominal pain: No Location of pain: none Severity: moderate Quality: aching Exacerbating factors: eating Relieving factors: none Associated symptoms: myalgias, loss of appetite, malaise, nausea/vomiting and weakness Related Data Home Medications Medication Instructions Recorded Confirmed albuterol sulfate 90 mcg/actuation inhalation 08/06/20 08/06/20 aerosol inhaler flu vacc [id number] 6mos up(PF) 60 ml IM 08/06/20 08/06/20 mcg(15 mcgx4)/0.5 mL IM syringe ipratropium 0.5 mg-albuterol 3 mg ml inhalation 08/06/20 08/06/20 (2.5 mg base)/3 mL nebulization soln montelukast 10 mg tablet 10 mg PO DAILY 08/06/20 08/06/20 omeprazole 40 mg capsule,delayed 40 mg PO DAILY 08/06/20 08/06/20 release umeclidinium 62.5 mcg/actuation 1 inh PO DAILY 08/06/20 08/06/20 blister powder for inhalation Previous Rx's Medication Instructions Recorded sucralfate 1 gram tablet (Carafate) 1 g PO BID #14 tabs 06/26/20 meclizine 25 mg tablet 25 mg PO DAILY PRN dizziness #10 08/21/20 tabs diphenhydramine HCl 25 mg capsule 25 mg PO BEDTIME PRN itchiness #30 12/17/20 (Benadryl) caps famotidine 20 mg tablet (Pepcid) 20 mg PO BID #20 tabs 12/17/20 hydrocortisone 2.5 % topical cream 1 appl topical BID PRN rash 9 days 12/17/20 #20 grams penicillin V potassium 500 mg 500 mg PO BID 10 days #20 tabs 09/21/21 tablet fluticasone propionate 50 1 spray intranasal BID #16 grams 02/19/22 mcg/actuation nasal spray,suspension (Aller-Napoleon) ondansetron 4 mg disintegrating 4 mg PO Q8H PRN nausea and 02/19/22 tablet vomiting #14 tabs Allergies Allergy/AdvReac Type Severity Reaction Status Date / Time No Known Allergies Allergy Verified 12/17/20 00:03 Review of Systems Review of Systems: Constitutional: No Fever, No Chills ENT/Mouth: + sore throat, No Rhinorrhea, No Swallowing Difficulty Eyes: No Eye Pain, No Swelling, No Redness Cardiovascular: No Chest Pain, No SOB, No Orthopnea, No Edema Respiratory: No Cough, No Sputum, No Wheezing, No dyspnea Gastrointestinal: + Nausea, + Vomiting, No Diarrhea, No abdominal Pain, No Hematochezia, No Melena Genitourinary: No Dysuria, No Urinary Frequency, No Hematuria Musculoskeletal: No joint pain, + Myalgias Skin: No Skin Lesions, No rash Neuro: + Weakness, No Numbness, No Dizziness, No Headache Psych: No Anxiety/Panic, No Depression Heme/Lymph: No Bruising, No Lymphadenopathy Endocrine: No Polyuria, No Polydipsia Gastrointestinal: Gastrointestinal: Reports nausea PMFSH Past Medical History Medical History Anxiety Arthritis COPD (chronic obstructive pulmonary disease) Depressed Surgical History Hx of section Family History Family History Mother Kidney failure COPD with asthma Heart disease Father No problems noted. Sister No problems noted. Sister No problems noted. Brother No problems noted. Son No problems noted. Son No problems noted. Daughter No problems noted. Daughter No problems noted. Daughter No problems noted. Daughter No problems noted. Daughter No problems noted. Daughter No problems noted. Social History Social History Alcohol intake: never Patient Tobacco Use Status: Current everyday Tobacco user Advance Directives: No Advance Directives Information Provided: No Physical Exam Vital Signs: Vital Signs: Last Vital Signs Temp 97 F 02/19/22 09:11 Pulse 81 02/19/22 09:11 Resp 18 02/19/22 09:11 BP 126/84 02/19/22 09:11 Pulse Ox 98 02/19/22 09:11 O2 Del Method 02/19/22 09:11 BMI result Body Mass Index 33.8 Appearance: Alert. Oriented X3. No acute distress. Eyes: Pupils equal, round and reactive to light. ENT: Pharynx normal. Neck: Normal inspection. Neck supple. CVS: Normal heart rate and rhythm. Pulses normal. Respiratory: No respiratory distress. Breath sounds normal. Abdomen: Soft and nontender. +BS x4 Skin: Skin warm and dry. Normal skin color. Normal skin turgor. No rashes. Extremities: No lower extremity edema. Neuro: Oriented X 3. No motor deficit. No sensory deficit. Course Course Course Narrative: 46-year-old female presents to the ER for evaluation of acute on chronic nausea and vomiting. She now has a sore throat and increased phlegm production which is making her vomiting worse. She denies any abdominal pain. She feels weak, dehydrated. She is able to tolerate Mountain Dew only. She appears well on examination, her abdomen is soft. She appears well hydrated. Will check basic lab workup, give her IV fluids and a dose of IV Zofran. Will reassess. Reevaluation(s) Reevaluation #1: Labs are unremarkable. Electrolytes within normal limits. No sign of dehydration. She did have some vomiting after drinking her Mountain Dew. Will give a trial of crackers to see how she does. Reevaluation #2: Patient tolerated p.o.. She states the Zofran worked well. Will discharge her home with sublingual Zofran to try before meals. Will have her follow-up with GI here. She is stable for discharge home. Work note provided per request MDM - Nausea/Vomiting/Diarrhea Lab Data Result diagrams: 02/19/22 10:09 02/19/22 10:09 Labs: Lab Results 02/19/22 02/19/22 Range/Units 10:09 10:09 WBC 9.8 (4.8-10.8) X10*3/uL RBC 4.71 (4.20-5.50) X10*6/uL Hgb 12.1 (12.0-16.0) g/dl Hct 38.4 (37.0-47.0) % MCV 81.5 (80.0-98.0) fL MCH 25.7 L (27.0-33.0) pg MCHC 31.5 (31.0-35.0) g/dl RDW 16.3 H (11.0-16.0) % Plt Count 290 (160-400) X10*3/uL MPV 11.0 (9.4-12.3) fL Immature Gran % (Auto) 0.5 H (0.0-0.4) % Neut % (Auto) 67.1 (45-73) % Lymph % (Auto) 26.1 (20-40) % Howard % (Auto) 5.0 (2-11) % Eos % (Auto) 1.0 (0-4) % Baso % (Auto) 0.3 (0-2) % Lymph # (Auto) 2.6 (1.2-4.9) X10*3/uL Howard # (Auto) 0.5 (0.1-1.2) X10*3/uL Eos # (Auto) 0.1 (0.0-0.4) X10*3/uL Baso # (Auto) 0.0 (0.0-0.2) X10*3/uL Abs Immat Gran (auto) 0.05 H (0.00-0.03) X10*3/uL Absolute Neuts (auto) 6.6 (2.0-8.3) x10*3/uL Absolute Nucleated RBC 0.000 (0.0-0.012) X10*3/uL Nucleated RBC % (auto) 0.0 (0.0-0.2) /100WBC Sodium 141 (135-145) mmol/L Potassium 4.1 (3.3-5.1) mmol/L Chloride 105 (96-108) mmol/L Carbon Dioxide 25 (22-29) mmol/L Anion Gap 15 (12-20) BUN 9 (9-16) mg/dL Creatinine 0.83 (0.5-1.4) mg/dL Estim Creat Clear Calc 96.1 Estimated GFR > 60 Random Glucose 97 (60-115) mg/dL Calcium 9.0 D (8.4-10.2) mg/dL Magnesium 2.0 (1.6-2.6) mg/dL Total Bilirubin 0.6 (0.0-1.0) mg/dL Direct Bilirubin 0.2 (0.0-0.5) mg/dL AST 16 (5-31) U/L ALT 15 (0-31) U/L Alkaline Phosphatase 98 (39-117) U/L Total Protein 7.2 (6.5-8.0) g/dL Albumin 4.2 (3.5-5.0) g/dL Lipase 18 (8-78) U/L Critical Care Time Critical Care Time Critical Care Time: No Discharge Plan Discharge Clinical Impression: Nausea and vomiting Patient Disposition: Home, Self-Care Instructions: Acute Nausea and Vomiting (ED) Additional Instructions: Your lab workup today was normal. Recommend taking the prescribed nausea medication before you try eating. Recommend following up with GI for further evaluation. Name and number below Recommend taking a food diary, avoid food with any dairy and avoid food that is high in fat agrees. Stick to a diet of bland food for now, things like rice, growth check an, banana & toast If you develop new or worsening symptoms call 911 or come back to the ER for further evaluation. Prescriptions: New ondansetron 4 mg tablet,disintegrating 4 mg PO Q8H PRN (Reason: nausea and vomiting) Qty: 14 0RF fluticasone propionate [Aller-Napoleon] 50 mcg/actuation spray,suspension 1 spray intranasal BID Qty: 16 0RF Rx Instructions: administer into each nostril No Action meclizine 25 mg tablet 25 mg PO DAILY PRN (Reason: dizziness) Qty: 10 0RF sucralfate [Carafate] 1 gram tablet 1 g PO BID Qty: 14 0RF diphenhydramine HCl [Benadryl] 25 mg capsule 25 mg PO BEDTIME PRN (Reason: itchiness) Qty: 30 0RF famotidine [Pepcid] 20 mg tablet 20 mg PO BID Qty: 20 0RF hydrocortisone 2.5 % cream 1 appl topical BID PRN (Reason: rash) 9 Days Qty: 20 0RF penicillin V potassium 500 mg tablet 500 mg PO BID 10 Days Qty: 20 0RF albuterol sulfate 90 mcg/actuation HFA aerosol inhaler inhalation montelukast 10 mg tablet 10 mg PO DAILY ipratropium-albuterol 0.5 mg-3 mg(2.5 mg base)/3 mL solution for nebulization inhalation omeprazole 40 mg capsule,delayed release(DR/EC) 40 mg PO DAILY Incruse Ellipta 62.5 mcg/actuation blister with device 1 inh PO DAILY Fluzone Quad [id number] (PF) 60 mcg (15 mcg x 4)/0.5 mL syringe IM Referrals: Wil Turner MD [Physician] - (Chronic nausea and vomiting) Stand Alone Forms: Work/School Release
[2022-02-19] MEDS: 0.9 % Sodium Chloride 1,000 ML 999 ML IVCONT (10:10)
[2022-02-19 10:17] LABS: MANUAL DIFF FLAG NO
[2022-02-19 10:20] LABS: Basophils Percent Auto 0.3 % (0-2); Eosinophils Absolute Auto 0.1 X10*3/uL (0.0-0.4); Hematocrit 38.4 % (37.0-47.0); Hemoglobin 12.1 g/dl (12.0-16.0); Imm Gran Abs Auto 0.05 X10*3/uL (0.00-0.03); Imm Gran Pct Auto 0.5 % (0.0-0.4); Lymphocytes Absolute Auto 2.6 X10*3/uL (1.2-4.9); Lymphocytes Percent Auto 26.1 % (20-40); Mean Corpuscular HGB Conc 31.5 g/dl (31.0-35.0); Mean Corpuscular Hemoglobin 25.7 pg (27.0-33.0); Mean Corpuscular Volume 81.5 fL (80.0-98.0); Monocytes Absolute Auto 0.5 X10*3/uL (0.1-1.2); Neutrophils Absolute Auto 6.6 x10*3/uL (2.0-8.3); Neutrophils Percent Auto 67.1 % (45-73); Platelet Count 290 X10*3/uL (160-400); Red Blood Count 4.71 X10*6/uL (4.20-5.50); Red Cell Distribution Width 16.3 % (11.0-16.0); White Blood Count 9.8 X10*3/uL (4.8-10.8)
[2022-02-19] MEDS: ondansetron HCL 4 MG/2 ML VIAL IVPUSH (10:39)
[2022-02-19 10:41] LABS: Alanine Aminotransferase 15 U/L (0-31); Albumin Level 4.2 g/dL (3.5-5.0); Alkaline Phosphatase 98 U/L (39-117); Anion Gap 15 (12-20); Aspartate Amino Transferase 16 U/L (5-31); Bilirubin Direct 0.2 mg/dL (0.0-0.5); Bilirubin Total 0.6 mg/dL (0.0-1.0); Blood Urea Nitrogen 9 mg/dL (9-16); Carbon Dioxide 25 mmol/L (22-29); Chloride 105 mmol/L (96-108); Creatinine Clr Calc Pharmacy 96.1; Estimated Glomerular Filt Rate > 60; Glucose Random 97 mg/dL (60-115); Lipase 18 U/L (8-78); Potassium 4.1 mmol/L (3.3-5.1); Sodium 141 mmol/L (135-145); Total Protein 7.2 g/dL (6.5-8.0)
== END 2022-02-19 12:17 | disposition home or self-care (01) ==
PROVIDERS: Physician Assistant; Emergency Provider Emergency Medicine
DX: R11.2 Nausea with vomiting, unspecified (principal); M79.10 Myalgia, unspecified site; F17.200 Nicotine dependence, unspecified, uncomplicated; Z71.6 Tobacco abuse counseling; Z79.899 Other long term (current) drug therapy
CPT/HCPCS: 36415; 80048; 80076; 83690; 83735; 85025; 96361; 96374; 99283; 99284; J2405

== ENCOUNTER 2022-07-07 04:26 | Emergency (ER) | payer OTHER, SELFPAY ==
--- NOTE | ~2022-07-07 | XR_ITS ---
EXAMINATION: XR CHEST CLINICAL INFORMATION: Rule out right-sided pneumonia COMPARISON: 06/28/2016 TECHNIQUE: Frontal view of the chest was obtained. FINDINGS: The lungs are well expanded. There is no focal consolidation, edema, or effusion. No pneumothorax. The cardiomediastinal silhouette is within normal limits. No acute osseous abnormality. XR/XR chest 1V IMPRESSION: Clear lungs.
[2022-07-07 04:29] VITALS: BP 161/92; PULSE 106; RESP 16; TEMP 36.9; O2SAT 96; BMI 31.6
--- NOTE | 2022-07-07 04:51 | ED_ITS ---
HPI - URI/Sore Throat General Chief Complaint: Back Pain/Injury Stated Complaint: Back pain Time Seen by Provider: 07/07/22 04:40 Source: patient Mode of arrival: ambulatory Limitations: no limitations History of Present Illness HPI Narrative: Patient comes to the emergency room complaining of cough for almost a week. Patient states that she went to see her primary care physician, she was prescribed Mucinex. However, her insurance does not cover it and she was expected to pay 50 dollars out of pocket and patient could not afford. Patient denies fever chills. Patient states that every time that she coughs she has pain. Related Data Home Medications Medication Instructions Recorded Confirmed albuterol sulfate 90 mcg/actuation inhalation 08/06/20 08/06/20 aerosol inhaler flu vacc [id number] 6mos up(PF) 60 ml IM 08/06/20 08/06/20 mcg(15 mcgx4)/0.5 mL IM syringe ipratropium 0.5 mg-albuterol 3 mg ml inhalation 08/06/20 08/06/20 (2.5 mg base)/3 mL nebulization soln montelukast 10 mg tablet 10 mg PO DAILY 08/06/20 08/06/20 omeprazole 40 mg capsule,delayed 40 mg PO DAILY 08/06/20 08/06/20 release umeclidinium 62.5 mcg/actuation 1 inh PO DAILY 08/06/20 08/06/20 blister powder for inhalation Previous Rx's Medication Instructions Recorded sucralfate 1 gram tablet (Carafate) 1 g PO BID #14 tabs 06/26/20 meclizine 25 mg tablet 25 mg PO DAILY PRN dizziness #10 08/21/20 tabs diphenhydramine HCl 25 mg capsule 25 mg PO BEDTIME PRN itchiness #30 12/17/20 (Benadryl) caps famotidine 20 mg tablet (Pepcid) 20 mg PO BID #20 tabs 12/17/20 hydrocortisone 2.5 % topical cream 1 appl topical BID PRN rash 9 days 12/17/20 #20 grams penicillin V potassium 500 mg 500 mg PO BID 10 days #20 tabs 09/21/21 tablet fluticasone propionate 50 1 spray intranasal BID #16 grams 02/19/22 mcg/actuation nasal spray,suspension (Aller-Napoleon) ondansetron 4 mg disintegrating 4 mg PO Q8H PRN nausea and 02/19/22 tablet vomiting #14 tabs benzonatate 100 mg capsule 100 mg PO TID PRN cough #10 caps 07/07/22 prednisone 50 mg tablet 50 mg PO DAILY #5 tabs 07/07/22 tramadol 50 mg tablet 50 mg PO BID PRN pain #5 tabs 07/07/22 Allergies Allergy/AdvReac Type Severity Reaction Status Date / Time No Known Allergies Allergy Verified 12/17/20 00:03 Review of Systems Review of Systems: Constitutional : No Weight loss, No Fever, No Chills, No Night Sweats, No Fatigue, No Malaise ENT/Mouth : No Hearing loss, No Ear Pain, No Nasal Congestion, No Sinus Pain, No Hoarseness, No sore throat, No Rhinorrhea, No Swallowing Difficulty Eyes: No Eye Pain, No Swelling, No Redness, No Foreign Body, No Discharge, No Vision Changes Cardiovascular : No Chest Pain, No SOB, No Dyspnea on Exertion, No Orthopnea, No Edema, No Palpitations Respiratory : Complaining of cough, back pain with coughing, feeling a sharp sensation with cough Gastrointestinal : No Nausea, No Vomiting, No Diarrhea, No Constipation, No abdominal Pain, No Hematochezia, No Melena Genitourinary : no irregular bleeding, No Dysuria, No Urinary Frequency, No Hematuria, No Urinary Incontinence, No Urgency, No Flank Pain, No Urinary Flow Changes, No Hesitancy Musculoskeletal : No joint pain, No Myalgias, No Joint Swelling Skin : No Skin Lesions, No rash Neuro : No Weakness, No Numbness, No Paresthesias, No Loss of Consciousness, No Dizziness, No Headache Psych : No Anxiety/Panic, No Depression, No SI/HI/AH/VH, No Social Issues, Heme/Lymph: No Bruising, No Bleeding,No Lymphadenopathy Endocrine : No Polyuria, No Polydipsia, No Temperature Intolerance [facility] Past Medical History Medical History Anxiety Arthritis COPD (chronic obstructive pulmonary disease) Depressed GERD (gastroesophageal reflux disease) Surgical History Hx of section Family History Family History Mother Kidney failure COPD with asthma Heart disease Father No problems noted. Sister No problems noted. Sister No problems noted. Brother No problems noted. Son No problems noted. Son No problems noted. Daughter No problems noted. Daughter No problems noted. Daughter No problems noted. Daughter No problems noted. Daughter No problems noted. Daughter No problems noted. Social History Social History Alcohol intake: never Patient Tobacco Use Status: Current everyday Tobacco user Advance Directives: No Advance Directives Information Provided: Yes Physical Exam Vital Signs: Vital Signs: Last Vital Signs Temp 98.4 F 07/07/22 04:29 Pulse 106 H 07/07/22 04:29 Resp 16 07/07/22 04:29 BP 161/92 H 07/07/22 04:29 Pulse Ox 96 07/07/22 04:29 O2 Del Method 07/07/22 04:29 BMI result Body Mass Index 31.6 Const: Other: Appearance: Alert. Oriented X3. No acute distress. Well appearing Eyes: Pupils equal, round and reactive to light. ENT: Pharynx normal. Neck: Normal inspection. Neck supple. No lymph nodes noted. No crepitus CVS: Normal heart rate and rhythm. Pulses normal. Normal S1 and S2 Respiratory: No respiratory distress. Breath sounds normal. No Wheezing. No rales Abdomen: Soft and nontender. No rigidity. No distention. Skin: Skin warm and dry. Normal skin color. Normal skin turgor. Extremities: No lower extremity edema. No Lacerations. No Rash Neuro: Oriented X 3. No motor deficit. No sensory deficit. Moving all extremit ies. No slurred speech. CN 2 through 12 grossly intact Psych: calm, cooperative, normal affect Course Course Course Narrative: Patient's physical exam is normal. Serology tests pending. Chest x-ray pending Given the patient has COPD, she would benefit from a course of steroids. P.o. prednisone and Tessalon Perle given in the emergency room. Medications Administered Discontinued Medications Generic Name Dose Route Start Last Admin Trade Name Freq PRN Reason Stop Dose Admin Benzonatate 100 mg 07/07/22 04:42 07/07/22 05:11 Benzonatate 100 Mg Capsule PO 07/07/22 04:43 100 mg ONCE ONE Administration Prednisone 60 mg 07/07/22 04:42 07/07/22 05:11 Prednisone 20 Mg Tablet PO 07/07/22 04:43 60 mg ONCE ONE Administration Medical Decision Making Medical Decision Making [facility] Narrative: Patient likely has a viral infection. Lungs are clear, oxygen saturation 96% on room air, no desaturation. Patient was given dose of p.o. prednisone. Differential Diagnosis Differential Diagnoses: The differential diagnosis associated with the presenta tion includes (Chronic lung disease, asthma, pneumonia) Lab Data [facility] Lab Attestation statement: I reviewed the patient's lab results. Labs: Lab Results 07/07/22 07/07/22 Range/Units 04:57 04:57 COVID-19 ([facility]) Negative (Negative) COVID-19 Clin Com See Note Influenza Type A ([facility]) Negative (Negative) Influenza Type B ([facility]) Negative (Negative) Influenza A & B Note See Note Independent Interpretation I performed an independent interpretation of an: Plain X-Ray Interpretation: My interpretation of x-ray: No infiltrate Radiology Impression Radiologist Impression: INDINGS: The lungs are well expanded. There is no focal consolidation, edema, or effusion. No pneumothorax. The cardiomediastinal silhouette is within normal limits. No acute osseous abnormality. XR/XR chest 1V IMPRESSION: Clear lungs. ? Discharge Plan Discharge Clinical Impression: Acute respiratory infection Patient Disposition: Home, Self-Care Instructions: Upper Respiratory Infection (ED) Additional Instructions: Please follow-up with your primary care physician tomorrow. If you have any worsening or new symptoms, please return to the emergency room or call 911 Prescriptions: New prednisone 50 mg tablet 50 mg PO DAILY Qty: 5 0RF benzonatate 100 mg capsule 100 mg PO TID PRN (Reason: cough) Qty: 10 0RF tramadol 50 mg tablet 50 mg PO BID PRN (Reason: pain) Qty: 5 0RF No Action meclizine 25 mg tablet 25 mg PO DAILY PRN (Reason: dizziness) Qty: 10 0RF sucralfate [Carafate] 1 gram tablet 1 g PO BID Qty: 14 0RF diphenhydramine HCl [Benadryl] 25 mg capsule 25 mg PO BEDTIME PRN (Reason: itchiness) Qty: 30 0RF famotidine [Pepcid] 20 mg tablet 20 mg PO BID Qty: 20 0RF hydrocortisone 2.5 % cream 1 appl topical BID PRN (Reason: rash) 9 Days Qty: 20 0RF penicillin V potassium 500 mg tablet 500 mg PO BID 10 Days Qty: 20 0RF ondansetron 4 mg tablet,disintegrating 4 mg PO Q8H PRN (Reason: nausea and vomiting) Qty: 14 0RF fluticasone propionate [Aller-Napoleon] 50 mcg/actuation spray,suspension 1 spray intranasal BID Qty: 16 0RF Rx Instructions: administer into each nostril albuterol sulfate 90 mcg/actuation HFA aerosol inhaler inhalation montelukast 10 mg tablet 10 mg PO DAILY ipratropium-albuterol 0.5 mg-3 mg(2.5 mg base)/3 mL solution for nebulization inhalation omeprazole 40 mg capsule,delayed release(DR/EC) 40 mg PO DAILY Incruse Ellipta 62.5 mcg/actuation blister with device 1 inh PO DAILY Fluzone Quad [id number] (PF) 60 mcg (15 mcg x 4)/0.5 mL syringe IM Stand Alone Forms: Work/School Release
[2022-07-07] MEDS: predniSONE 20 MG TABLET 60 MG PO (05:11)
[2022-07-07] MEDS: Benzonatate 100 MG CAPSULE PO (05:11)
[2022-07-07 05:26] LABS: COVID-19 Test Negative (Negative); IDNOW Serial# 16C4AD1C; IDNOW Serial# BCCEAD1C; Influenza A Negative (Negative); Influenza B2 Negative (Negative)
== END 2022-07-07 06:13 | disposition home or self-care (01) ==
PROVIDERS: Emergency Provider Emergency Medicine; PCP Internal Medicine
DX: M54.50 Low back pain, unspecified (principal); R05.9 Cough, unspecified; Z20.822 Contact with and (suspected) exposure to COVID-19; Z20.828 Contact with and (suspected) exposure to other viral communicable diseases; Z79.899 Other long term (current) drug therapy
CPT/HCPCS: 71045; 87502; 87635; 99282; 99283

== ENCOUNTER 2022-09-02 10:30 | Emergency (ER) | payer OTHER, SELFPAY ==
--- NOTE | ~2022-09-02 | XR_ITS ---
EXAMINATION: XR THORACOLUMBAR SPINE CLINICAL INFORMATION: Back pain COMPARISON: None TECHNIQUE: 3 views thoracic spine FINDINGS: The vertebral alignment is normal. No intrinsic bony abnormality. Some minimal spondylitic endplate changes are seen with some marginal osteophytes. The disc heights are well maintained. No fracture or subluxation. The surrounding prevertebral soft tissues are unremarkable. XR/XR thoracic spine 2V IMPRESSION: Minimal degenerative changes. No acute finding.
[2022-09-02 10:39] VITALS: PULSE 70; RESP 18; TEMP 36.1; O2SAT 95; BMI 32.4
--- NOTE | 2022-09-02 10:50 | ED_ITS ---
HPI - General Adult General Chief complaint: Back Pain/Injury Stated complaint: Back pain Time Seen by Provider: 09/02/22 10:50 Source: patient and RN notes reviewed Mode of arrival: ambulatory Limitations: no limitations History of Present Illness HPI narrative: 47-year-old female with past medical history significant for COPD, obesity, GERD, scoliosis presents for evaluation of mid back pain. Patient reports that she woke up with the pain in the middle of her back this morning. She reports cleaning has daily but denies any abnormal strenuous activity Denies any falls, twisting injuries. Her pain does not radiate. Her pain is worse when she ?twist or move my arms. ? Denies any chest pain, shortness of breath, coughing and the ordinary. Denies any abdominal pain nausea vomiting. Denies any blood in the urine or difficulty urinating Related Data Home Medications Medication Instructions Recorded Confirmed albuterol sulfate 90 mcg/actuation inhalation 08/06/20 08/06/20 aerosol inhaler flu vacc [id number] 6mos up(PF) 60 ml IM 08/06/20 08/06/20 mcg(15 mcgx4)/0.5 mL IM syringe ipratropium 0.5 mg-albuterol 3 mg ml inhalation 08/06/20 08/06/20 (2.5 mg base)/3 mL nebulization soln montelukast 10 mg tablet 10 mg PO DAILY 08/06/20 08/06/20 omeprazole 40 mg capsule,delayed 40 mg PO DAILY 08/06/20 08/06/20 release umeclidinium 62.5 mcg/actuation 1 inh PO DAILY 08/06/20 08/06/20 blister powder for inhalation Previous Rx's Medication Instructions Recorded sucralfate 1 gram tablet (Carafate) 1 g PO BID #14 tabs 06/26/20 meclizine 25 mg tablet 25 mg PO DAILY PRN dizziness #10 08/21/20 tabs diphenhydramine HCl 25 mg capsule 25 mg PO BEDTIME PRN itchiness #30 12/17/20 (Benadryl) caps famotidine 20 mg tablet (Pepcid) 20 mg PO BID #20 tabs 12/17/20 hydrocortisone 2.5 % topical cream 1 appl topical BID PRN rash 9 days 12/17/20 #20 grams penicillin V potassium 500 mg 500 mg PO BID 10 days #20 tabs 09/21/21 tablet fluticasone propionate 50 1 spray intranasal BID #16 grams 02/19/22 mcg/actuation nasal spray,suspension (Aller-Napoleon) ondansetron 4 mg disintegrating 4 mg PO Q8H PRN nausea and 02/19/22 tablet vomiting #14 tabs benzonatate 100 mg capsule 100 mg PO TID PRN cough #10 caps 07/07/22 prednisone 50 mg tablet 50 mg PO DAILY #5 tabs 07/07/22 tramadol 50 mg tablet 50 mg PO BID PRN pain #5 tabs 07/07/22 methocarbamol 500 mg tablet 500 mg PO QID PRN muscle spasms 09/02/22 #20 tabs Allergies Allergy/AdvReac Type Severity Reaction Status Date / Time No Known Allergies Allergy Verified 12/17/20 00:03 Review of Systems Constitutional: Constitutional: Reports as per HPI, Denies chills and Denies fatigue Cardiovascular: Cardiovascular: Denies chest pain and Denies dyspnea Respiratory: Respiratory: Denies cough and Denies dyspnea Gastrointestinal: Gastrointestinal: Denies abdominal pain, Denies constipation and Denies vomiting Genitourinary: Genitourinary: Denies dysuria Musculoskeletal: Musculoskeletal: Reports back pain Endocrine: Endocrine: Denies fatigue [facility] Past Medical History Medical History Anxiety Arthritis COPD (chronic obstructive pulmonary disease) Depressed GERD (gastroesophageal reflux disease) Surgical History Hx of section Family History Family History Mother Kidney failure COPD with asthma Heart disease Father No problems noted. Sister No problems noted. Sister No problems noted. Brother No problems noted. Son No problems noted. Son No problems noted. Daughter No problems noted. Daughter No problems noted. Daughter No problems noted. Daughter No problems noted. Daughter No problems noted. Daughter No problems noted. Social History Social History Alcohol intake: never Patient Tobacco Use Status: Current everyday Tobacco user Advance Directives: Yes Advance Directives Information Provided: Yes Advance Directives on File: No Physical Exam ED Vital Signs: Vital Signs - 24 hr 09/02/22 10:39 Temperature 97 F Pulse Rate 70 Respiratory Rate 18 Pulse Oximetry 95 Oxygen Delivery Method Room Air BMI result Body Mass Index 32.4 Const General: healthy appearing, comfortable, no acute distress, alert and awake Nutritional Appearance: well nourished Orientation/consciousness: patient oriented x3 Eyes Eyelids: Yes eyelids normal Conjunctivae: conjunctivae normal Sclerae: sclerae normal Corneas: corneas normal Pupils: Equal, round and reactive pupils present EOM: EOMs intact bilaterally Resp Effort & Inspection: normal respiratory effort, able to speak in complete sentences, no audible wheezes and not labored General: Yes no CVA tenderness Back/Spine/Pelvis Back: no CVA tenderness and No back tenderness Cervical Spine: No normal cervical lordosis Thoracic/Lumbar Spine: No Thoracic/lumbar spine scar(s), straight leg raise negative bilaterally, No paraspinal muscle tenderness and No straight leg raise positive Skin General skin exam: no rashes or lesions noted and elasticity normal Lesions: no lesions Rashes: no rashes Neuro General: patient oriented x3 Cranial nerves: Yes Equal, round and reactive pupils present Extrem General: Yes full ROM Medical Decision Making Medical Decision Making [facility] Narrative: Patient is seen in MD, she woke up this morning with each of the back pain was reproducible with removal. She reports a history of back pain denies any trauma to the area. Will get x-ray of the thoracic spine area the patient's di [place]. Patient has no neuro signs or symptoms Differential Diagnosis Muscle strain Radiculopathy Scoliosis Kyphosis point lordosis Disc herniation Obstructive uropathy Independent Interpretation I performed an independent interpretation of an: Plain X-Ray (No significant abnormality to the thoracic spine) Radiology Impression Discussion of test interpretation with radiology: I have reviewed the radiologist's reading. Radiologist Impression: No acute abnormality Discharge Plan Discharge Clinical Impression: Mid-back pain, acute Patient Disposition: Home, Self-Care Instructions: Back Pain (ED) Additional Instructions: Use ibuprofen or Tylenol for your discomfort. You may use methocarbamol for muscle spasms. Your x-ray did not show any significant abnormality This may make you sleepy, drink alcohol or drive after taking You may also use warm compresses Prescriptions: New methocarbamol 500 mg tablet 500 mg PO QID PRN (Reason: muscle spasms) Qty: 20 0RF No Action meclizine 25 mg tablet 25 mg PO DAILY PRN (Reason: dizziness) Qty: 10 0RF sucralfate [Carafate] 1 gram tablet 1 g PO BID Qty: 14 0RF diphenhydramine HCl [Benadryl] 25 mg capsule 25 mg PO BEDTIME PRN (Reason: itchiness) Qty: 30 0RF famotidine [Pepcid] 20 mg tablet 20 mg PO BID Qty: 20 0RF hydrocortisone 2.5 % cream 1 appl topical BID PRN (Reason: rash) 9 Days Qty: 20 0RF prednisone 50 mg tablet 50 mg PO DAILY Qty: 5 0RF benzonatate 100 mg capsule 100 mg PO TID PRN (Reason: cough) Qty: 10 0RF tramadol 50 mg tablet 50 mg PO BID PRN (Reason: pain) Qty: 5 0RF penicillin V potassium 500 mg tablet 500 mg PO BID 10 Days Qty: 20 0RF ondansetron 4 mg tablet,disintegrating 4 mg PO Q8H PRN (Reason: nausea and vomiting) Qty: 14 0RF fluticasone propionate [Aller-Napoleon] 50 mcg/actuation spray,suspension 1 spray intranasal BID Qty: 16 0RF Rx Instructions: administer into each nostril albuterol sulfate 90 mcg/actuation HFA aerosol inhaler inhalation montelukast 10 mg tablet 10 mg PO DAILY ipratropium-albuterol 0.5 mg-3 mg(2.5 mg base)/3 mL solution for nebulization inhalation omeprazole 40 mg capsule,delayed release(DR/EC) 40 mg PO DAILY Incruse Ellipta 62.5 mcg/actuation blister with device 1 inh PO DAILY Fluzone Quad [id number] (PF) 60 mcg (15 mcg x 4)/0.5 mL syringe IM
== END 2022-09-02 13:10 | disposition home or self-care (01) ==
PROVIDERS: Emergency Provider Emergency Medicine Emergency Medical Services; PCP Physician Assistant
DX: M54.50 Low back pain, unspecified (principal); M54.6 Pain in thoracic spine
CPT/HCPCS: 72070; 99282; 99283

== ENCOUNTER 2023-05-12 12:54 | Emergency (ER) | payer OTHER, SELFPAY ==
--- NOTE | ~2023-05-12 | XR_ITS ---
EXAMINATION: XR ABDOMEN KUB CLINICAL INDICATION: Constipation COMPARISON: None available. TECHNIQUE: AP view of the abdomen. FINDINGS: Large stool burden throughout the colon. No proximal obstruction or free air. There are surgical clips in the right upper quadrant. XR/XR KUB IMPRESSION: Constipated colon.
--- NOTE | ~2023-05-12 | CT_ITS ---
EXAMINATION: CT ABDOMEN AND PELVIS WITH CONTRAST CLINICAL INFORMATION: severe LLQ pain, constipation COMPARISON: 07/07/2022 chest x-ray TECHNIQUE: Multidetector volumetric imaging was performed from the superior aspect of the liver through the pubic symphysis following administration of 85 Sagittal and coronal reformatted images were obtained on the technologist workstation.. This CT examination was performed using dose optimization techniques as appropriate, variously including the following: *Automated exposure control *Adjustment of mA and/or kV according to patient size (this includes techniques or standardized protocols for targeted exams where dose is matched to indication/reason for exam; i.e. extremities or head) *Use of iterative reconstruction technique DLP: 747 mGy-cm FINDINGS: LUNG BASES: Scattered regions of air trapping. There are pulmonary nodules seen in the visualized right lung base the largest of these measures 0.7 cm in size with a small micronodules seen in the right middle lobe and more centrally in the right lower lobe. LIVER, GALLBLADDER, AND BILIARY TREE: The liver is normal in size, shape, and attenuation. No focal hepatic lesion or biliary ductal dilatation is present. The gallbladder surgically absent PANCREAS: Unremarkable. SPLEEN: Prominent measuring 12.9 cm in length. ADRENAL GLANDS: Unremarkable. KIDNEYS AND URETERS: The kidneys are normal in size, shape, and attenuation. No hydronephrosis, hydroureter, or calculi seen. No perinephric stranding. BLADDER: Unremarkable. GASTROINTESTINAL TRACT: Scattered colonic diverticulosis more so in the sigmoid colon there is focal inflammatory changes and pericolonic fluid seen abutting the proximal sigmoid colon most likely representing focal diverticulitis in this setting. Despite the free fluid do not appreciate any significant free air. No obstructive changes to the more proximal colon. Normal-appearing appendix in the right lower quadrant. Visualized small bowel unremarkable ABDOMINAL WALL: No significant hernia is appreciated. LYMPHOVASCULAR STRUCTURES: No lymphadenopathy. The aorta is unremarkable. PELVIC VISCERA: Unremarkable. OSSEOUS STRUCTURES: Unremarkable. CT/CT abdomen pelvis w IV con IMPRESSION: 1. Scattered diverticulosis more so in the sigmoid colon. There is focal inflammatory changes and pericolonic fluid abutting the proximal sigmoid colon which is focally thickened most likely representing focal diverticulitis in this setting. Despite this focal inflammatory changes, I do not appreciate any discrete drainable abscess or free air at this time. There are a few small pulmonary nodules seen in the visualized right lung base the largest of which measures 0.7 cm in size. Etiology of these nodules is uncertain. According to the UPDATED 2017 Fleischner Society recommendations, the advised follow-up imaging for multiple solid nodules, the largest measuring 6 mm or greater, is: LOW RISK PATIENT: CT at 3-6 months, then consider CT at 18-24 months. HIGH RISK PATIENT: CT at 3-6 months, then at 18-24 months.
[2023-05-12 13:51] VITALS: BP 154/89; PULSE 96; RESP 18; TEMP 36.4; O2SAT 98; BMI 33.7
--- NOTE | 2023-05-12 13:56 | ED.GENADULT ---
HPI - General Adult General Chief complaint: General Medical Stated complaint: Stomach Pain Time Seen by Provider: 05/12/23 16:23 Source: patient Mode of arrival: ambulatory Limitations: no limitations History of Present Illness HPI narrative: Patient is a 47-year-old female who presents emergency department for evaluation of sudden onset diffuse abdominal pain primarily worse in the left lower abdomen, constipation, excessive belching, nonproductive cough at 0230 today. she reports the pain to be an intense stabbing adry pain. she reports at baseline she typically has diarrhea at least 6 times daily. This is chronic in nature since she had her gallbladder removed 1 year ago. Yesterday she noted that she was not experiencing her typical back diarrhea active bleeding which was concerning for her. When she continued to not have a bowel movement associated pain she was more concerned thus prompting her ED visit. She denies fevers, chills, she has nausea and vomit taking chronically (daily reportedly), states that she vomited earlier today. she denies taking any antidiarrheal medications within the past month. She denies genitourinary symptoms. Related Data Home Medications Medication Instructions Recorded Confirmed albuterol sulfate 90 mcg/actuation inhalation 08/06/20 08/06/20 aerosol inhaler flu vacc [id number] 6mos up(PF) 60 ml IM 08/06/20 08/06/20 mcg(15 mcgx4)/0.5 mL IM syringe ipratropium 0.5 mg-albuterol 3 mg ml inhalation 08/06/20 08/06/20 (2.5 mg base)/3 mL nebulization soln montelukast 10 mg tablet 10 mg PO DAILY 08/06/20 08/06/20 omeprazole 40 mg capsule,delayed 40 mg PO DAILY 08/06/20 08/06/20 release umeclidinium 62.5 mcg/actuation 1 inh PO DAILY 08/06/20 08/06/20 blister powder for inhalation Previous Rx's Medication Instructions Recorded sucralfate 1 gram tablet (Carafate) 1 g PO BID #14 tabs 06/26/20 meclizine 25 mg tablet 25 mg PO DAILY PRN dizziness #10 08/21/20 tabs diphenhydramine HCl 25 mg capsule 25 mg PO BEDTIME PRN itchiness #30 12/17/20 (Benadryl) caps famotidine 20 mg tablet (Pepcid) 20 mg PO BID #20 tabs 12/17/20 hydrocortisone 2.5 % topical cream 1 appl topical BID PRN rash 9 days 12/17/20 #20 grams penicillin V potassium 500 mg 500 mg PO BID 10 days #20 tabs 09/21/21 tablet fluticasone propionate 50 1 spray intranasal BID #16 grams 02/19/22 mcg/actuation nasal spray,suspension (Aller-Napoleon) ondansetron 4 mg disintegrating 4 mg PO Q8H PRN nausea and 02/19/22 tablet vomiting #14 tabs benzonatate 100 mg capsule 100 mg PO TID PRN cough #10 caps 07/07/22 prednisone 50 mg tablet 50 mg PO DAILY #5 tabs 07/07/22 tramadol 50 mg tablet 50 mg PO BID PRN pain #5 tabs 07/07/22 methocarbamol 500 mg tablet 500 mg PO QID PRN muscle spasms 09/02/22 #20 tabs amoxicillin 875 mg-potassium 1 tab PO BID #19 tabs 05/12/23 clavulanate 125 mg tablet polyethylene glycol 3350 17 17 g PO DAILY #119 grams 05/12/23 gram/dose oral powder (Miralax) Allergies Allergy/AdvReac Type Severity Reaction Status Date / Time No Known Allergies Allergy Verified 12/17/20 00:03 Review of Systems Review of Systems: Yes all other systems are reviewed and are negative [facility] Past Medical History Attestation statement: The following information was validated with the patient. Source: old records reviewed Medical History Arthritis Anxiety Depressed GERD (gastroesophageal reflux disease) COPD (chronic obstructive pulmonary disease) Surgical History Hx of section Family History Family History Mother Kidney failure COPD with asthma Heart disease Father No problems noted. Sister No problems noted. Sister No problems noted. Brother No problems noted. Son No problems noted. Son No problems noted. Daughter No problems noted. Daughter No problems noted. Daughter No problems noted. Daughter No problems noted. Daughter No problems noted. Daughter No problems noted. Social History Social History Unable to assess alcohol history related to: Unknown Alcohol intake: never Patient Tobacco Use Status: Current everyday Tobacco user Smoked in Last 30 Days: No Use of substances other than those prescribed or required for medical reasons: Unknown Advance Directives: No Physical Exam ED Vital Signs: Vital Signs - 24 hr 05/12/23 13:51 Temperature 97.6 F Pulse Rate 96 Respiratory Rate 18 Blood Pressure 154/89 H Pulse Oximetry 98 Oxygen Delivery Method Room Air BMI result Body Mass Index 33.7 Appearance: Alert.?Oriented to person, place and time. No acute distress.?Normal affect. Eyes: Pupils equal, round and reactive to light.? ENT: Pharynx normal.?? Neck: Normal inspection.? Neck supple.?? CVS: Heart sounds normal. Normal heart rate and rhythm.? Pulses normal.?? Respiratory: No respiratory distress.? Lung sounds clear to auscultation bilaterally?? Abdomen: Soft , semifirm, diffuse tenderness, notable left lower quadrant tenderness to palpation worse than the remainder the abdomen. No guarding. No CVA tenderness. Hypooactive bowel sounds. N Skin: Skin warm and dry.? Normal skin color.? ?? Extremities: No lower extremity edema.? Neuro: Moves all extremities spontaneously. Sensation intact bilaterally. Ambulates with normal steady gait. Course Course Course Narrative: This is an RME: Additional HPI, ROS, PE not included below will be deferred to primary provider. 47 year old female presents w/ stomach pain, constipation, burping, cough since 0230 this am. Plan- labs, kub, urine Reevaluation(s) Reevaluation #1: CT abdomen and pelvis revealing scattered diverticulosis primarily in the sigmoid colon, focal inflammatory changes and pericolonic fluid abutting the proximal sigmoid colon representing focal diverticulitis, no discrete drainable abscess is noted or free air. will send prescription for Augmentin b.i.d. for 10 days to pharmacy In addition to MiraLax daily for constipation. Discussed strict return precautions. CT also with incidental finding of small pulmonary nodules in the right lung base largest of which measuring 0.7 cm in size, recommendation for repeat follow-up CT Outpatient, patient made aware of these findings and recommended to follow-up with primary care provider. Time: 19:28 Medications Administered Discontinued Medications Generic Name Dose Route Start Last Admin Trade Name Stacey PRN Reason Stop Dose Admin Sodium Chloride 1,000 mls @ 999 mls/hr 05/12/23 17:00 05/12/23 18:15 Ns IV 05/12/23 18:00 Infused .Q1H1M KIRAN Infusion Iohexol 100 ml 05/12/23 18:07 05/12/23 18:07 Iohexol 350 Mg/Ml 100 Ml Infus..Btl IV 05/12/23 18:08 85 ml ONCE ONE Administration Ketorolac Tromethamine 15 mg 05/12/23 16:56 05/12/23 17:13 Ketorolac Tromethamine 15 Mg/Ml Vial IVPUSH 05/12/23 16:57 15 mg ONCE ONE Administration Medical Decision Making Medical Decision Making [facility] Narrative: patient is a 47-year-old female past medical history of anxiety, depression, arthritis, COPD, GERD, chronic diarrhea presenting to the emergency department for N/V and constipation with ABD pain as per HPI. At the time my examination she is overall well-appearing, nontoxic, afebrile. Has diffuse abdominal tenderness primarily worse in the left lower quadrant. I reviewed the workup obtained prior to my assumption of care. Patient without leukocytosis or anemia. CMP is overall on remarkable. Urinalysis with trace blood, reports end of menstrual cycle at this time, no evidence of infection. testing is negative. KUB obtained revealing notable constipation throughout the colon. Patient received normal saline motor IV fluid, Toradol IV for pain, pending CT the abdomen pelvis to exclude obstruction Differential Diagnosis Differential Diagnoses: The differential diagnosis associated with the presentation includes ( constipation, bowel obstruction, colitis, diverticulitis) Admission/Observation Consideration of admission/observation: Escalation of care including admission/observation considered ( see course narrative for further detail) Lab Data [facility] Lab Attestation statement: I reviewed the patient's lab results. 05/12/23 14:10 05/12/23 14:10 Labs: Lab Results 05/12/23 05/12/23 Range/Units 14:07 14:10 WBC 8.4 (4.8-10.8) X10*3/uL RBC 4.40 (4.20-5.50) X10*6/uL Hgb 12.0 (12.0-16.0) g/dl Hct 37.0 (37.0-47.0) % MCV 84.1 (80.0-98.0) fL MCH 27.3 (27.0-33.0) pg MCHC 32.4 (31.0-35.0) g/dl RDW 14.5 (11.0-16.0) % Plt Count 237 (160-400) X10*3/uL MPV 11.4 (9.4-12.3) fL Immature Gran % (Auto) 0.5 H (0.0-0.4) % Neut % (Auto) 75.5 H (45-73) % Lymph % (Auto) 16.9 L (20-40) % [place] % (Auto) 6.2 (2-11) % Eos % (Auto) 0.7 (0-4) % Baso % (Auto) 0.2 (0-2) % Lymph # (Auto) 1.4 (1.2-4.9) X10*3/uL [place] # (Auto) 0.5 (0.1-1.2) X10*3/uL Eos # (Auto) 0.1 (0.0-0.4) X10*3/uL Baso # (Auto) 0.0 (0.0-0.2) X10*3/uL Abs Immat Gran (auto) 0.04 H (0.00-0.03) X10*3/uL Absolute Neuts (auto) 6.3 (2.0-8.3) x10*3/uL Absolute Nucleated RBC 0.000 (0.0-0.012) X10*3/uL Nucleated RBC % (auto) 0.0 (0.0-0.2) /100WBC Sodium 140 (135-145) mmol/L Potassium 3.5 (3.3-5.1) mmol/L Chloride 108 (96-108) mmol/L Carbon Dioxide 26 (22-29) mmol/L Anion Gap 10 L (12-20) BUN 7 L (9-16) mg/dL Creatinine 0.75 (0.5-1.4) mg/dL Estim Creat Clear Calc 105.0 Estimated GFR > 60 Random Glucose 125 H (60-115) mg/dL Calcium 8.5 (8.4-10.2) mg/dL Magnesium 1.8 (1.6-2.6) mg/dL Total Bilirubin 0.3 (0.0-1.0) mg/dL AST 17 (5-31) U/L ALT 20 (0-31) U/L Alkaline Phosphatase 84 (39-117) U/L Total Protein 6.7 (6.5-8.0) g/dL Albumin 3.8 (3.5-5.0) g/dL Lipase 11 (8-78) U/L Urine Color Yellow Urine Appearance Clear Urine pH 6.0 (5.0-9.0) Ur Specific [place] 1.010 (1.005-1.025) Urine Protein Negative (Neg-Trace) mg/dL Urine Glucose (UA) Negative (Negative) mg/dL Urine Ketones Negative (Negative) mg/dL Urine Blood Trace H (Negative) Urine Nitrite Negative (Negative) Ur Leukocyte Esterase Negative (Negative) Urine RBC 0-2 (0-2) /HPF Urine WBC 0-5 (0-5) /HPF Ur Squamous Epith Cells 0-2 (0-2) /HPF Urine Bacteria None Seen (None Seen) Hyaline Casts 0-2 (0-2) /LPF Urine Test NEGATIVE (NEGATIVE) Independent Interpretation I performed an independent interpretation of an: Plain X-Ray ( I have personally interpreted KUB and agree with radiologist impression) Radiology Impression Discussion of test interpretation with radiology: I have reviewed the radiologist's reading. Radiologist Impression: XR/XR KUB IMPRESSION: Constipated colon. CT/CT abdomen pelvis w IV con IMPRESSION: 1. Scattered diverticulosis more so in the sigmoid colon. There is focal inflammatory changes and pericolonic fluid abutting the proximal sigmoid colon which is focally thickened most likely representing focal diverticulitis in this setting. Despite this focal inflammatory changes, I do not appreciate any discrete drainable abscess or free air at this time. There are a few small pulmonary nodules seen in the visualized right lung base the largest of which measures 0.7 cm in size. Etiology of these nodules is uncertain. According to the UPDATED 2017 Fleischner Society recommendations, the advised follow-up imaging for multiple solid nodules, the largest measuring 6 mm or greater, is: LOW RISK PATIENT: CT at 3-6 months, then consider CT at 18-24 months. HIGH RISK PATIENT: CT at 3-6 months, then at 18-24 months. Discharge Plan Discharge Clinical Impression: Constipation, Diverticulitis Patient Disposition: Home, Self-Care Instructions: Diverticulitis (ED), Constipation (ED), Diverticulitis Diet (ED) Additional Instructions: you received the first dose of antibiotic in the emergency department tonight in addition to MiraLax. Begin taking the antibiotic at home tomorrow. You will take this twice a day. Take the MiraLax once daily in the evening. Contact your primary care provider to arrange for a follow-up visit within 3 days. You may return back to emergency department any new or worsening symptoms or concerns. The CT scan revealed an incidental finding of pulmonary nodules, the largest 1 is seen at the base of your right lung measuring 0.7 cm, please speak with your primary care provider regarding outpatient repeat CT imaging for monitoring. Prescriptions: New amoxicillin-pot clavulanate 875-125 mg tablet 1 tab PO BID Qty: 19 0RF polyethylene glycol 3350 [Miralax] 17 gram/dose powder 17 g PO DAILY Qty: 119 0RF No Action meclizine 25 mg tablet 25 mg PO DAILY PRN (Reason: dizziness) Qty: 10 0RF sucralfate [Carafate] 1 gram tablet 1 g PO BID Qty: 14 0RF diphenhydramine HCl [Benadryl] 25 mg capsule 25 mg PO BEDTIME PRN (Reason: itchiness) Qty: 30 0RF famotidine [Pepcid] 20 mg tablet 20 mg PO BID Qty: 20 0RF hydrocortisone 2.5 % cream 1 appl topical BID PRN (Reason: rash) 9 Days Qty: 20 0RF prednisone 50 mg tablet 50 mg PO DAILY Qty: 5 0RF benzonatate 100 mg capsule 100 mg PO TID PRN (Reason: cough) Qty: 10 0RF tramadol 50 mg tablet 50 mg PO BID PRN (Reason: pain) Qty: 5 0RF penicillin V potassium 500 mg tablet 500 mg PO BID 10 Days Qty: 20 0RF ondansetron 4 mg tablet,disintegrating 4 mg PO Q8H PRN (Reason: nausea and vomiting) Qty: 14 0RF fluticasone propionate [Aller-Napoleon] 50 mcg/actuation spray,suspension 1 spray intranasal BID Qty: 16 0RF Rx Instructions: administer into each nostril methocarbamol 500 mg tablet 500 mg PO QID PRN (Reason: muscle spasms) Qty: 20 0RF albuterol sulfate 90 mcg/actuation HFA aerosol inhaler inhalation montelukast 10 mg tablet 10 mg PO DAILY ipratropium-albuterol 0.5 mg-3 mg(2.5 mg base)/3 mL solution for nebulization inhalation omeprazole 40 mg capsule,delayed release(DR/EC) 40 mg PO DAILY Incruse Ellipta 62.5 mcg/actuation blister with device 1 inh PO DAILY Fluzone Quad [id number] (PF) 60 mcg (15 mcg x 4)/0.5 mL syringe IM Referrals: Physician,Unknown J [Primary Care Provider] -
[2023-05-12 14:14] LABS: MANUAL DIFF FLAG NO
[2023-05-12 14:17] LABS: Appearance Urine Clear; Color Urine Yellow; Glucose Urine UA Negative (Negative); Leukocyte Esterase Urine Negative (Negative); Nitrite Urine Negative (Negative); UMIC TRIGGER UACC YES; Urine Blood Trace (Negative); Urine Ketones Negative (Negative); Urine Protein Negative (Neg-Trace)
[2023-05-12 14:18] LABS: Basophils Percent Auto 0.2 % (0-2); Eosinophils Absolute Auto 0.1 X10*3/uL (0.0-0.4); Eosinophils Percent Auto 0.7 % (0-4); Imm Gran Abs Auto 0.04 X10*3/uL (0.00-0.03); Imm Gran Pct Auto 0.5 % (0.0-0.4); Lymphocytes Absolute Auto 1.4 X10*3/uL (1.2-4.9); Lymphocytes Percent Auto 16.9 % (20-40); Mean Corpuscular HGB Conc 32.4 g/dl (31.0-35.0); Mean Corpuscular Hemoglobin 27.3 pg (27.0-33.0); Mean Corpuscular Volume 84.1 fL (80.0-98.0); Mean Platelet Volume 11.4 fL (9.4-12.3); Monocytes Absolute Auto 0.5 X10*3/uL (0.1-1.2); Monocytes Percent Auto 6.2 % (2-11); Neutrophils Absolute Auto 6.3 x10*3/uL (2.0-8.3); Neutrophils Percent Auto 75.5 % (45-73); Platelet Count 237 X10*3/uL (160-400); Red Cell Distribution Width 14.5 % (11.0-16.0); White Blood Count 8.4 X10*3/uL (4.8-10.8)
[2023-05-12 14:19] LABS: UPreg QC Valid YES; Urine Pregnancy NEGATIVE (NEGATIVE)
[2023-05-12 14:20] LABS: Bacteria Urine None Seen (None Seen); Hyaline Casts Urine 0-2 /LPF (0-2); RBC Urine 0-2 /HPF (0-2); Squamous Epithelial Cell Urine 0-2 /HPF (0-2); WBC Urine 0-5 /HPF (0-5)
[2023-05-12 14:35] LABS: Alanine Aminotransferase 20 U/L (0-31); Albumin Level 3.8 g/dL (3.5-5.0); Alkaline Phosphatase 84 U/L (39-117); Anion Gap 10 (12-20); Aspartate Amino Transferase 17 U/L (5-31); Bilirubin Total 0.3 mg/dL (0.0-1.0); Blood Urea Nitrogen 7 mg/dL (9-16); Calcium 8.5 mg/dL (8.4-10.2); Carbon Dioxide 26 mmol/L (22-29); Chloride 108 mmol/L (96-108); Estimated Glomerular Filt Rate > 60; Glucose Random 125 mg/dL (60-115); Lipase 11 U/L (8-78); Magnesium 1.8 mg/dL (1.6-2.6); Potassium 3.5 mmol/L (3.3-5.1); Sodium 140 mmol/L (135-145); Total Protein 6.7 g/dL (6.5-8.0)
[2023-05-12] MEDS: Ketorolac Tromethamine 15 MG/ML VIAL IVPUSH (17:13)
[2023-05-12] MEDS: 0.9 % Sodium Chloride 1,000 ML 999 ML IV (17:14)
[2023-05-12] MEDS: iohexoL 350 MG/ML 100 ML INFUS..BTL IV (18:07)
[2023-05-12] MEDS: polyethylene glycoL 3350 17 GM POWD.PACK PO (20:01)
[2023-05-12] MEDS: Amoxicillin/Potassium Clav 875 MG TABLET PO (20:01)
[2023-05-12 20:08] VITALS: BP 138/77; PULSE 92; RESP 18; O2SAT 95
--- NOTE | 2023-05-12 20:09 | PC.NURSE ---
this rn assumed care of pt. pt given discharge instructions at this time, sarwat.
== END 2023-05-12 20:14 | disposition home or self-care (01) ==
PROVIDERS: Physician Assistant; Emergency Provider Emergency Medicine
DX: K57.32 Diverticulitis of large intestine without perforation or abscess without bleeding (principal); K59.00 Constipation, unspecified; R10.32 Left lower quadrant pain; Z79.899 Other long term (current) drug therapy
CPT/HCPCS: 36415; 74018; 74177; 80053; 81001; 81025; 83690; 83735; 85025; 96361; 96374; 99284; J1885; Q9967

== ENCOUNTER 2023-09-25 12:38 | Emergency (ER) | payer OTHER, SELFPAY ==
--- NOTE | ~2023-09-25 | CT_ITS ---
EXAMINATION: CT ABDOMEN AND PELVIS WITH CONTRAST CLINICAL INFORMATION: Left lower quadrant pain. History of diverticulitis. COMPARISON: CT abdomen pelvis May 12, 2023 TECHNIQUE: Multidetector volumetric images were obtained from the superior aspect of the liver through the pubic symphysis following administration 85 mL of Omnipaque 350 intravenous contrast. Sagittal and coronal reformatted images were obtained on the technologist's workstation. Oral contrast: No This CT examination was performed using dose optimization techniques as appropriate, variously including the following: *Automated exposure control *Adjustment of mA and/or kV according to patient size (this includes techniques or standardized protocols for targeted exams where dose is matched to indication/reason for exam; i.e. extremities or head) *Use of iterative reconstruction technique DLP: 824 mGy-cm FINDINGS: Visualized lung bases again demonstrate pulmonary nodules, the largest is again noted to be a 7 mm right lower lobe pulmonary nodule. The liver is normal in size but demonstrates diffusely decreased attenuation. The gallbladder surgically absent. The spleen is enlarged measuring 14.8 cm in AP dimension. The pancreas and adrenal glands are unremarkable. Symmetrically enhancing kidneys. No hydronephrosis of either kidney. The stomach is relatively decompressed. Normal caliber loops of small and large bowel. Mild colonic diverticulosis. Localized area of circumferential wall thickening and pericolonic stranding at the junction of the descending and sigmoid colon. There is a small amount of free fluid in this region but no well organized abscess. Normal appendix. Normal caliber abdominal aorta. No retroperitoneal lymphadenopathy. The bladder is normal in appearance. Unremarkable CT appearance of the uterus. No gross free pelvic fluid. No inguinal lymphadenopathy. Mild diffuse degenerative changes of the spine. CT/CT abdomen pelvis w IV con IMPRESSION: 1. CT findings most consistent with active diverticulitis at the junction of the descending and sigmoid colon. No complicating abscess. Follow-up imaging recommended status post treatment to ensure resolution. 2. Hepatic steatosis. 3. Mild splenomegaly. 4. Pulmonary nodules again noted within the lung bases. The largest is again noted to be a 7 mm right lower lobe pulmonary nodule. Fleischner guidelines were followed.
[2023-09-25 12:45] VITALS: BP 144/95; PULSE 96; RESP 20; TEMP 36.7; O2SAT 97; BMI 36.0
--- NOTE | 2023-09-25 12:45 | ED.GENADULT ---
HPI - General Adult General Chief complaint: Abdominal Pain Stated complaint: ? Diverticulitis Severe L Side Pain Time Seen by Provider: 09/25/23 15:06 Source: patient Mode of arrival: ambulatory Limitations: no limitations History of Present Illness HPI narrative: Patient is a 48-year-old female who presents to the emergency department for evaluation of 2 days with decreased bowel movement, this morning with mid/L lower ABD pain radiating into the back. Denies hematochezia or melena, N/V. Denies genitourinary symptoms. Reports that she was seen approximately 1 month ago and diagnosed with diverticulitis which resolved with antibiotics. Expresses concern that this is presenting similarly. Related Data Home Medications Medication Instructions Recorded Confirmed albuterol sulfate 90 mcg/actuation inhalation 08/06/20 08/06/20 aerosol inhaler flu vacc [id number] 6mos up(PF) 60 ml IM 08/06/20 08/06/20 mcg(15 mcgx4)/0.5 mL IM syringe ipratropium 0.5 mg-albuterol 3 mg ml inhalation 08/06/20 08/06/20 (2.5 mg base)/3 mL nebulization soln montelukast 10 mg tablet 10 mg PO DAILY 08/06/20 08/06/20 omeprazole 40 mg capsule,delayed 40 mg PO DAILY 08/06/20 08/06/20 release umeclidinium 62.5 mcg/actuation 1 inh PO DAILY 08/06/20 08/06/20 blister powder for inhalation Previous Rx's Medication Instructions Recorded sucralfate 1 gram tablet (Carafate) 1 g PO BID #14 tabs 06/26/20 meclizine 25 mg tablet 25 mg PO DAILY PRN dizziness #10 08/21/20 tabs diphenhydramine HCl 25 mg capsule 25 mg PO BEDTIME PRN itchiness #30 12/17/20 (Benadryl) caps famotidine 20 mg tablet (Pepcid) 20 mg PO BID #20 tabs 12/17/20 hydrocortisone 2.5 % topical cream 1 appl topical BID PRN rash 9 days 12/17/20 #20 grams penicillin V potassium 500 mg 500 mg PO BID 10 days #20 tabs 09/21/21 tablet fluticasone propionate 50 1 spray intranasal BID #16 grams 08/26/22 mcg/actuation nasal spray,suspension (Aller-Napoleon) ondansetron 4 mg disintegrating 4 mg PO Q8H PRN nausea and 02/19/22 tablet vomiting #14 tabs benzonatate 100 mg capsule 100 mg PO TID PRN cough #10 caps 07/07/22 prednisone 50 mg tablet 50 mg PO DAILY #5 tabs 07/07/22 tramadol 50 mg tablet 50 mg PO BID PRN pain #5 tabs 07/07/22 methocarbamol 500 mg tablet 500 mg PO QID PRN muscle spasms 09/02/22 #20 tabs amoxicillin 875 mg-potassium 1 tab PO BID #19 tabs 05/12/23 clavulanate 125 mg tablet polyethylene glycol 3350 17 17 g PO DAILY #119 grams 05/12/23 gram/dose oral powder (Miralax) Allergies Allergy/AdvReac Type Severity Reaction Status Date / Time No Known Allergies Allergy Verified 09/25/23 12:44 Review of Systems Review of Systems: Yes all other systems are reviewed and are negative [facility] Past Medical History Attestation statement: The following information was validated with the patient. Source: old records reviewed Medical History Arthritis Anxiety Depressed GERD (gastroesophageal reflux disease) COPD (chronic obstructive pulmonary disease) Surgical History Hx of section Family History Family History Mother Kidney failure COPD with asthma Heart disease Father No problems noted. Sister No problems noted. Sister No problems noted. Brother No problems noted. Son No problems noted. Son No problems noted. Daughter No problems noted. Daughter No problems noted. Daughter No problems noted. Daughter No problems noted. Daughter No problems noted. Daughter No problems noted. Social History Social History Unable to assess alcohol history related to: Unknown Alcohol intake: never Patient Tobacco Use Status: Current everyday Tobacco user Smoked in Last 30 Days: No Use of substances other than those prescribed or required for medical reasons: No Advance Directives: No Advance Directives Information Provided: No Physical Exam ED Vital Signs: Vital Signs - 24 hr 09/25/23 12:45 09/25/23 15:38 Temperature 98.1 F 98.4 F Pulse Rate 96 86 Respiratory Rate 20 18 Blood Pressure 144/95 H 132/58 L Pulse Oximetry 97 97 Oxygen Delivery Method Room Air Room Air BMI result Body Mass Index 36.0 Appearance: Alert.?Oriented to person, place and time. No acute distress.?Normal affect. Eyes: Pupils equal, round and reactive to light.? ENT: Pharynx normal.?? Neck: Normal inspection.? Neck supple.?? CVS: Heart sounds normal. Normal heart rate and rhythm.? Pulses normal.?? Respiratory: No respiratory distress.? Lung sounds clear to auscultation bilaterally?? Abdomen: Soft with left lower quadrant tenderness upon palpation. No rigidity. No guarding. No rebound tenderness.. Normoactive bowel sounds. No pulsatile mass.?? Skin: Skin warm and dry.? Normal skin color.?? Extremities: No lower extremity edema.? Neuro: Moves all extremities spontaneously. Sensation intact bilaterally. Ambulates with normal steady gait. Medications Administered Discontinued Medications Generic Name Dose Route Start Last Admin Trade Name Freq PRN Reason Stop Dose Admin Sodium Chloride 1,000 mls @ 999 mls/hr 09/25/23 15:15 09/25/23 15:51 Ns IV 09/25/23 16:15 999 mls/hr .Q1H1M KIRAN Administration Iohexol 100 ml 09/25/23 16:06 09/25/23 16:06 Iohexol 350 Mg/Ml 100 Ml Infus..Btl IV 09/25/23 16:07 85 ml ONCE ONE Administration Ketorolac Tromethamine 30 mg 09/25/23 15:07 09/25/23 15:49 Ketorolac Tromethamine 30 Mg/Ml Vial IVPUSH 09/25/23 15:08 30 mg ONCE ONE Administration Medical Decision Making Medical Decision Making [facility] Narrative: CT of the abdomen and pelvis reveals acute uncomplicated diverticulitis. Received initial dose of Augmentin while in the emergency department sent remainder prescription to pharmacy. Advised outpatient follow-up with primary care provider. Discussed strict return precautions. All questions answered. Stable for discharge Differential Diagnosis Differential Diagnoses: The differential diagnosis associated with the presentation includes (Diverticulitis, colitis, bowel obstruction, gastroenteritis) Admission/Observation Consideration of admission/observation: Escalation of care including admission/observation considered (See narrative above) Lab Data [facility] Lab Attestation statement: I reviewed the patient's lab results. CBC reveals no leukocytosis, normocytic anemia not meeting transfusion criteria. Overall unremarkable CMP. No electrolyte abnormality or DAVIE. Lipase within normal range. 09/25/23 13:13 09/25/23 13:13 Labs: Lab Results 09/25/23 Range/Units 13:13 WBC 9.8 (4.8-10.8) X10*3/uL RBC 4.35 (4.20-5.50) X10*6/uL Hgb 11.9 L (12.0-16.0) g/dl Hct 36.0 L (37.0-47.0) % MCV 82.8 (80.0-98.0) fL MCH 27.4 (27.0-33.0) pg MCHC 33.1 (31.0-35.0) g/dl RDW 13.4 (11.0-16.0) % Plt Count 258 (160-400) X10*3/uL MPV 10.9 (9.4-12.3) fL Immature Gran % (Auto) 0.4 (0.0-0.4) % Neut % (Auto) 76.1 H (45-73) % Lymph % (Auto) 17.1 L (20-40) % Villalba % (Auto) 5.5 (2-11) % Eos % (Auto) 0.6 (0-4) % Baso % (Auto) 0.3 (0-2) % Lymph # (Auto) 1.7 (1.2-4.9) X10*3/uL Villalba # (Auto) 0.5 (0.1-1.2) X10*3/uL Eos # (Auto) 0.1 (0.0-0.4) X10*3/uL Baso # (Auto) 0.0 (0.0-0.2) X10*3/uL Abs Immat Gran (auto) 0.04 H (0.00-0.03) X10*3/uL Absolute Neuts (auto) 7.5 (2.0-8.3) x10*3/uL Absolute Nucleated RBC 0.000 (0.0-0.012) X10*3/uL Nucleated RBC % (auto) 0.0 (0.0-0.2) /100WBC Sodium 138 (135-145) mmol/L Potassium 4.1 (3.3-5.1) mmol/L Chloride 106 (96-108) mmol/L Carbon Dioxide 28 (22-29) mmol/L Anion Gap 8 L (12-20) BUN 11 (9-16) mg/dL Creatinine 0.82 (0.5-1.4) mg/dL Estim Creat Clear Calc 98.3 Estimated GFR > 60 Random Glucose 93 (60-115) mg/dL Calcium 8.4 (8.4-10.2) mg/dL Total Bilirubin 0.3 (0.0-1.0) mg/dL AST 16 (5-31) U/L ALT 20 (0-31) U/L Alkaline Phosphatase 86 (39-117) U/L Total Protein 6.8 (6.5-8.0) g/dL Albumin 3.8 (3.5-5.0) g/dL Lipase 12 (8-78) U/L Independent Interpretation I performed an independent interpretation of an: CT Scan (Diverticulitis) Radiology Impression Discussion of test interpretation with radiology: I have reviewed the radiologist's reading. Radiologist Impression: CT/CT abdomen pelvis w IV con IMPRESSION: 1. CT findings most consistent with active diverticulitis at the junction of the descending and sigmoid colon. No complicating abscess. Follow-up imaging recommended status post treatment to ensure resolution. 2. Hepatic steatosis. 3. Mild splenomegaly. 4. Pulmonary nodules again noted within the lung bases. The largest is again noted to be a 7 mm right lower lobe pulmonary nodule. External Record Review External record reviewed: Outpatient record Prescription Management I considered prescription management with: Antibiotic Discharge Plan Discharge Clinical Impression: Diverticulitis Patient Disposition: Home, Self-Care Instructions: Diverticulitis (ED) Additional Instructions: Complete the entire course of antibiotics as prescribed. Return back to emergency department any new or worsening symptoms or concerns. Contact your primary care provider and arrange for a follow-up visit within the next week. Prescriptions: No Action meclizine 25 mg tablet 25 mg PO DAILY PRN (Reason: dizziness) Qty: 10 0RF sucralfate [Carafate] 1 gram tablet 1 g PO BID Qty: 14 0RF diphenhydramine HCl [Benadryl] 25 mg capsule 25 mg PO BEDTIME PRN (Reason: itchiness) Qty: 30 0RF famotidine [Pepcid] 20 mg tablet 20 mg PO BID Qty: 20 0RF hydrocortisone 2.5 % cream 1 appl topical BID PRN (Reason: rash) 9 Days Qty: 20 0RF prednisone 50 mg tablet 50 mg PO DAILY Qty: 5 0RF benzonatate 100 mg capsule 100 mg PO TID PRN (Reason: cough) Qty: 10 0RF tramadol 50 mg tablet 50 mg PO BID PRN (Reason: pain) Qty: 5 0RF penicillin V potassium 500 mg tablet 500 mg PO BID 10 Days Qty: 20 0RF ondansetron 4 mg tablet,disintegrating 4 mg PO Q8H PRN (Reason: nausea and vomiting) Qty: 14 0RF fluticasone propionate [Aller-Napoleon] 50 mcg/actuation spray,suspension 1 spray intranasal BID Qty: 16 0RF Rx Instructions: administer into each nostril methocarbamol 500 mg tablet 500 mg PO QID PRN (Reason: muscle spasms) Qty: 20 0RF amoxicillin-pot clavulanate 875-125 mg tablet 1 tab PO BID Qty: 19 0RF polyethylene glycol 3350 [Miralax] 17 gram/dose powder 17 g PO DAILY Qty: 119 0RF albuterol sulfate 90 mcg/actuation HFA aerosol inhaler inhalation montelukast 10 mg tablet 10 mg PO DAILY ipratropium-albuterol 0.5 mg-3 mg(2.5 mg base)/3 mL solution for nebulization inhalation omeprazole 40 mg capsule,delayed release(DR/EC) 40 mg PO DAILY Incruse Ellipta 62.5 mcg/actuation blister with device 1 inh PO DAILY Fluzone Quad [id number] (PF) 60 mcg (15 mcg x 4)/0.5 mL syringe IM Referrals: Physician,None [Primary Care Provider] -
[2023-09-25 13:16] LABS: MANUAL DIFF FLAG NO
[2023-09-25 13:27] LABS: Basophils Percent Auto 0.3 % (0-2); Eosinophils Absolute Auto 0.1 X10*3/uL (0.0-0.4); Eosinophils Percent Auto 0.6 % (0-4); Hemoglobin 11.9 g/dl (12.0-16.0); Imm Gran Abs Auto 0.04 X10*3/uL (0.00-0.03); Imm Gran Pct Auto 0.4 % (0.0-0.4); Lymphocytes Absolute Auto 1.7 X10*3/uL (1.2-4.9); Lymphocytes Percent Auto 17.1 % (20-40); Mean Corpuscular HGB Conc 33.1 g/dl (31.0-35.0); Mean Corpuscular Hemoglobin 27.4 pg (27.0-33.0); Mean Corpuscular Volume 82.8 fL (80.0-98.0); Mean Platelet Volume 10.9 fL (9.4-12.3); Monocytes Absolute Auto 0.5 X10*3/uL (0.1-1.2); Monocytes Percent Auto 5.5 % (2-11); Neutrophils Absolute Auto 7.5 x10*3/uL (2.0-8.3); Neutrophils Percent Auto 76.1 % (45-73); Platelet Count 258 X10*3/uL (160-400); Red Blood Count 4.35 X10*6/uL (4.20-5.50); Red Cell Distribution Width 13.4 % (11.0-16.0); White Blood Count 9.8 X10*3/uL (4.8-10.8)
[2023-09-25 13:31] LABS: Alanine Aminotransferase 20 U/L (0-31); Albumin Level 3.8 g/dL (3.5-5.0); Alkaline Phosphatase 86 U/L (39-117); Anion Gap 8 (12-20); Aspartate Amino Transferase 16 U/L (5-31); Bilirubin Total 0.3 mg/dL (0.0-1.0); Blood Urea Nitrogen 11 mg/dL (9-16); Calcium 8.4 mg/dL (8.4-10.2); Carbon Dioxide 28 mmol/L (22-29); Chloride 106 mmol/L (96-108); Creatinine Clr Calc Pharmacy 98.3; Estimated Glomerular Filt Rate > 60; Glucose Random 93 mg/dL (60-115); Lipase 12 U/L (8-78); Potassium 4.1 mmol/L (3.3-5.1); Sodium 138 mmol/L (135-145); Total Protein 6.8 g/dL (6.5-8.0)
[2023-09-25 15:38] VITALS: BP 132/58; PULSE 86; RESP 18; TEMP 36.9; O2SAT 97
[2023-09-25] MEDS: Ketorolac Tromethamine 30 MG/ML VIAL IVPUSH (15:49)
[2023-09-25] MEDS: 0.9 % Sodium Chloride 1,000 ML 999 ML IV (15:51)
[2023-09-25] MEDS: iohexoL 350 MG/ML 100 ML INFUS..BTL IV (16:06)
[2023-09-25] MEDS: Amoxicillin/Potassium Clav 875 MG TABLET PO (17:32)
[2023-09-25 17:37] VITALS: BP 130/60; PULSE 80; RESP 14; TEMP 36.8; O2SAT 98
== END 2023-09-25 17:38 | disposition home or self-care (01) ==
PROVIDERS: Nurse Practitioner Family; Emergency Provider Student in an Organized Health Care Education/Training Program
DX: K57.92 Diverticulitis of intestine, part unspecified, without perforation or abscess without bleeding (principal); J44.9 Chronic obstructive pulmonary disease, unspecified
CPT/HCPCS: 36415; 74177; 80053; 83690; 85025; 96374; 99284; J1885; Q9967

== ENCOUNTER 2025-05-22 07:52 | Outpatient (AMB) | payer OTHER, SELFPAY ==
--- OUTSIDE RECORDS SUMMARY | 2013-08-01 03:24 | XMS_ITS | Continuity of Care Document ---
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 Role Phone Unavailable Unavailable Unavailable Allergies, Adverse Reactions, Alerts Substance Reaction Status Criticality No Known allergies Medications Medication Instructions Dosage Effective Dates (start - stop) Status Comments clindamycin 150 mg capsule take 1 capsule (150MG) by oral route every 6 hours 150 MG - Active acetaminophen 300 mg-codeine 30 mg tablet take 1 tablet by oral route every 6 hours as needed 1.00 tablet - Active Procedures Procedure Date Offic/outpt E&m [facility] 4 Advance Directives Directive Yes / No Effective Date File Name No Information Encounters Encounter Description Practice Location Reason(s) For Visit Diagnoses Date Provider Providers Copied on Encounter [facility], [address] [facility] [[email or web address] [address], [place], [place], [id number], tel:[phone] [facility] No Information 4 No Information Offic/outpt E&m [facility], [address] [facility] [[email or web address] [address], [place], [place], [id number], tel:[phone] [facility] mouth sore (chief complaint) Toothache 4 No Information Family History Family Member Type Diagnosis Age At Onset Mother Problem (finding) Family history of asthm a Father Problem (finding) Blood disease Mother Problem (finding) Family history of hyper tension Father Problem (finding) Family history of hyper tension Payers Payer name Insurance type Covered constitution party ID Authoriza tion(s) No Information Social History Type Description Quantity Date Captured Comments Sex Female Smoking Status No Information Chief Complaint And Reason For Visit No Information Reason For Referral Reason For Referral No Information History Of Present Illness Encounter Date Complaint History Of Prese nt Illness No Information Functional Status Date Functional Assessmen t No Information Instructions Date Instruction Additional Infor mation No Information Assessments Type Assessment Date No Information Patient Care Teams Name Effective Dates (start - stop) Status Members No Information
--- OUTSIDE RECORDS SUMMARY | 2025-05-22 07:58 | XMS_ITS | Encounter Summary ---
Author Organization [facility] Address [address] [place] [address] Care Team Providers Care Reach Truck Operator Name Role Phone Anjelica Monteiro Primary Care Provider + Encounter Details Date Type Department Care Team ([facility] st Contact Info) Description 05/20/2025 Results Follow-Up Gastroenterology - [place] [address] [facility] 175 [facility] [address] [place] [phone] Suzy Medeiros MD [address] [facility] [address] [place] [address] Social History Tobacco Use Types Packs/Day Years Used Date Smoking Tobacco: Former Cigarettes 0.3 27 0 06/27/1996 - 07/02/2023 Smokeless Tobacco: Never Alcohol Use Standard Drinks/Week Comments No 0 (1 standard drink = 0.6 oz pur e alcohol) Housing Instability Answer Date Recorde d Are you worried that in the next 2 months you may not have stable housing? No 10/02/2024 Food Access & Nutrition Answer Date Rec orded Do you have access to a vari ety of food including fruits and vegetables? No 10/02/2024 Access to Healthcare Answer Date Record ed Within the last 3 months, ho helga many times did you visit the emergency department for your medical care? 0 10/02/2024 Health Literacy Answer Date Recorded How often do you need to hav e someone help you when you read instructions, pamphlets, or other written material from your doctor or pharmacy? Never 10/02/2024 Caregiver: How often do you need to have someone help you when you read instructions, pamphlets, or other written material from your doctor or pharmacy? Not on file 10/02/2024 Financial Risk Answer Date Recorded How hard is it for you to pa y for the very basics like food, housing, medical care, and air conditioning / heating? Not very hard 10/02/2024 Transportation Answer Date Recorded Has the lack of transportati on kept you from meetings, work, or from getting things needed for daily living? No Has the lack of transportati on kept you from medical appointments or from getting medications? No 10/02/2024 Social Isolation Answer Date Recorded How often do you feel lonely or isolated from th ose around you? Never 10/02/2024 Food Risk Answer Date Recorded Within the past 12 months we worried whether our food would run out before we got money to buy more. Never true 10/02/2024 Within the past 12 months th e food we bought just didn't last and we didn't have money to get more. Never true 10/02/2024 Dependent Care Answer Date Recorded Do you need help finding or paying for care for your loved ones. For example, child care leader or elderly care for an older adult? No 10/02/2024 Education Answer Date Recorded Do you think completing more education or training, like finishing a GED, going to college, or learning a trade, would be helpful for you? No 10/02/2024 Employment and Income Answer Date Recor ded During the last four weeks, have you been actively looking for work? No 10/02/2024 Living Situation Answer Date Recorded What is your living situation? Unrecognized valu e 10/02/2024 Interpersonal Safety Answer Date Record ed Physical Abuse Unrecognized value 04/02/2025 Verbal Abuse Unrecognized value 04/02/2025 Comments No Sex and Gender Information Value Date Recorded Sex Assigned at Female 07/26/2024 12:38 PM EST Legal Sex Female 4:33 AM EST Gender Identity Female 07/26/2024 12:38 PM EST Sexual Orientation Straight 07/26/2024 12 :38 PM EST documented as of this encounter Progress Notes * Kelsie Pompa MA - 05/21/2025 1:23 PM EST Last read by Anya Xavier at 8:40AM on 05/21/2025. Recall [address]. Care gaps updated. * Suzy Medeiros MD - 05/20/2025 7:31 PM EST The polyp(s) that were removed during your colonoscopy were precancerous, but benign. Fortunately, we removed them and therefore, they will not cause any more problems in the future. Based on the number, the size, and the features of the polyp(s) removed, I recommend a follow-up colonoscopy in 5 years. Before, the five years are due, we will send you a reminder in the mail askingyou to contact our office to have the colonoscopy scheduled. I would like to personally thank you for allowing us to take care of you. Please don't hesitate to call us for any questions or concerns. Regards, Kenny Medeiros MD Board Certified Gastroenterology and Internal Medicine Transplant Hepatology [facility] documented in this encounter Plan of Treatment Upcoming Encounters Date Type Department Care Team (Late st Contact Info) Description 06/04/2025 2:15 PM EST Office Visit [facility] Hematology Oncology [address] [place] [phone] Gretchen Abdullahi DO [address] [place] [address] 06/21/2025 11:25 AM EST Office Visit Pulmonology [facility] 175 [facility] [address] [place] [phone] Ladi Griffin NP [address] [place] [phone] 02/18/2026 9:15 AM EDT Office Visit [facility] Hematology Oncology [address] [place] [phone] Gretchen Abdullahi DO [address] [place] [address] documented as of this encounter Visit Diagnoses Not on filedocumented in this encounter Additional Health Concerns Assessment Noted Time PHQ-9 Depression Total Score: 0 08/14/19 12:15 PM EST documented as of this encounter Care Teams Reach Truck Operator Relationship Specialty Start Date End Date Anjelica Monteiro PA [address] [address] PCP - General Primary Care 08/14/24 documented as of this encounter
--- OUTSIDE RECORDS SUMMARY | 2025-05-22 07:58 | XMS_ITS | Clinical Summary ---
Author Organization [facility] Address [address] [place] [address] Phone Care Team Providers Care Anchor Operator Name Role Phone Anjelica Monteiro Primary Care Provider + Allergies No known active allergies Medications pantoprazole (PROTONIX) 40 mg EC tabletIndicatio ns:Gastroesopha geal reflux disease, unspecified whether esophagitis present Take 1 tablet (40 mg total) by mouth 2 (two) times a day before meals. 08/14/19 25 Active fluticasone-ume clidinium-vilan terol (Trelegy Ellipta) 100-62.5-25 mcg inhalerIndicati ons:Pulmonary emphysema, unspecified emphysema type Inhale 1 puff (100 mcg total) by mouth 1 (one) time each day. Rinse mouth with water after use to reduce aftertaste and incidence of candidiasis. Do not swallow. 3 each 3 10/24/19 25 Active albuterol HFA (PROAIR HFA ; PROVENTIL HFA ; VENTOLIN HFA) 90 mcg/actuation inhalerIndicati ons:Pulmonary emphysema, unspecified emphysema type Inhale 2 puffs by mouth every 4 (four) hours if needed for shortness of breath or wheezing. 18 g 2 10/24/19 25 Active triamcinolone (NASACORT) 55 mcg nasal inhalerIndicati ons:Subacute cough,Chronic rhinitis Administer 2 sprays into each nostril 1 (one) time each day. 50.7 mL 3 10/24/19 Active ferrous sulfate 325 mg (65 mg elemental iron) tablet Take 1 tablet (325 mg total) by mouth 1 (one) time each day with breakfast. 30 each 02/21/20 25 026 Active cyanocobalamin (VITAMIN B-12) 500 mcg tablet TAKE 1 TABLET (500 MCG TOTAL) BY MOUTH 1 (ONE) TIME EACH DAY. 90 tablet 05/13/20 25 026 Active amoxicillin-cla vulanate (AUGMENTIN) 875-125 mg per tabletIndicatio ns:Left lower quadrant abdominal pain Take 1 tablet by mouth 2 (two) times a day for 10 days. 20 each 05/16/20 25 025 Active cyanocobalamin (VITAMIN B-12) 500 mcg tablet Take 1 tablet (500 mcg total) by mouth 1 (one) time each day. 90 each 02/20/20 25 025 Discontinued dextromethorpha n 15 mg/5 mL syrup Take 10 mL (30 mg total) by mouth 4 (four) times a day if needed for cough for up to 10 days. 120 mL 04/26/20 25 025 azithromycin (ZITHROMAX) 250 mg tablet Take 2 tablets (500 mg total) by mouth 1 (one) time each day for 1 day, THEN 1 tablet (250 mg total) 1 (one) time each day for 4 days. 6 each 04/26/20 25 025 Active Problems Problem Noted Date Diagnosed Date Multiple pulmonary nodules 04/18/2025 History of malignant carcinoid tumor 11/15/2024 Assessment & Plan (04/18/2025 2:44 PM EDT): Ms. Xavier is a 49-year-old female who had a robotic right lower lobe anterior basilar segmentectomy in September 2024 for a stage I typical carcinoid with an additional findings including multiple carcinoid tumorlets and diffuse neuroendocrine hyperplasia. Abdominal CT scan showed no evidence of intra-abdominal malignancy. The patient's most recent surveillance chest CT scan done March 2025 shows no new or worsening pulmonary nodule, or thoracic adenopathy, to suggest recurrence or new disease. She does have numerous solid, noncalcified nodules bilaterally which are unchanged when compared to previous imaging and all measure 5 mm or less. Will continue with routine chest CT surveillance and next of which will be in 1 year, March 2026. She is seeing Dr. Abdullahi from medical oncology in May and should she recommend scan any sooner for surveillance I will update my follow-up to follow that scan. 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 Xavier is a 49-year-old female who had a robotic right lower lobe anterior basilar segmentectomy on October 02, 2024 for a stage I (pT1a, PN 0) typical carcinoid. Additional findings included multiple carcinoid tumorlets and diffuse neuroendocrine hyperplasia. 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 Intercostal neuralgia Patient discomfort appears to be improving, especially with taking her gabapentin as prescribed 3 times a day. Overall she feels as if her pain is improving, but would like to stay on the gabapentin. The patient will call in 1 month to update me on her pain and how she is doing on her gabapentin. Hopefully at that point we can wean her off of it. If she continues to need gabapentin I will transfer care to her PCP for ongoing chronic medication management. Carcinoid tumor Patient already has a CT scan scheduled for March 2025 as part of her cancer surveillance. Assessment & Plan (11/29/2024 2:46 PM EDT): Ms. Xavier is a 49-year-old female who had a robotic right lower lobe anterior basilar segmentectomy on October 02, 2024. Postoperative pathology demonstrated a stage I (pT1a, PN 0) typical carcinoid. Additional findings included multiple carcinoid tumorlets and diffuse neuroendocrine hyperplasia. Patient's pain appears to be improved on gabapentin. She has only been taking it twice a day, therefore educated her to take it 3 times a day which might aid with further decrease in her pain. I will follow-up with her in 1 month for pain and medication review. Patient already has a CT scan scheduled for March 2025 as part of her cancer surveillance. Assessment & Plan (11/15/2024 3:59 PM EDT): Ms. Xavier is a 49-year-old female who had a robotic right lower lobe anterior basilar segmentectomy on October 02, 2024. Postoperative pathology demonstrated a stage I (pT1a, PN 0) typical carcinoid. Additional findings included multiple carcinoid tumorlets and diffuse neuroendocrine hyperplasia. The patient is continue to have right sided chest discomfort in the expected distribution of the intercostal nerves which were affected during her surgery. At this point being over 1 month out after surgery narcotics are not recommended as this will increase her risk of dependency and addiction. I spoke with the patient's about intercostal neuralgia at length. I did reassure her that for most people intercostal nerves will heal over the first several months after surgery, but it can take upwards of 1 year. I also did tell her that in rare occasions people do sometimes suffer from chronic discomfort. At this point given that the pain is interfering with her daily activities and her inability to return to work I will prescribe gabapentin. I will follow-up with her in 2 weeks to check on her response and for any possible side effects. I educated her to call should she have any questions or concerns prior to that time. Vitamin D deficiency 10/20/2022 Allergic rhinitis 11/30/2021 Obesity (BMI 30-39.9) 11/30/2021 Adenomyomatosis of gallbladder 08/18/2020 Gallstones 08/12/2020 COPD with asthma ([facility] V24, [facility] V28) 11/2018 Generalized anxiety disorder 01/30/2019 Post-nasal drainage 01/30/2019 GERD (gastroesophageal reflux disease) 7 Anxiety 12/06/2016 Dysphagia 12/06/2016 Helicobacter pylori infection 10/21/2006 Overview (06/04/2024): IMO update Backache 10/06/2006 Overview (06/04/2024): she has been told it is due to scoliosis IMO update Iron deficiency anemia 10/06/2006 Resolved Problems Problem Noted Date Diagnosed Date Resolved Date Carcinoid tumor determined b y biopsy of lung ([facility] V28) 09/17/2024 11/15/2024 Assessment & Plan (10/18/2024 11:46 AM EDT): Ms. Xavier is a 49-year-old female who had a robotic right lower lobe anterior basilar segmentectomy on October 02, 2024. Postoperative pathology shows a stage I (pT1a, pN0) typical carcinoid. Additional findings include multiple carcinoid tumorlets and diffuse neuroendocrine hyperplasia. Patient appears to be healing well after her surgery. No signs or symptoms of active infection or significant complication. Pathology was discussed with the patient at length. She was also discussed at our multidisciplinary thoracic tumor board conference this past Tuesday where recommendation was made to obtain a dotatate PET scan. However, her insurance will not cover this scan, therefore we will proceed with CT a/p w/ contrast (ordered by Dr. Abdullahi). Should there be no evidence of additional active disease we will proceed with routine CT surveillance with her first scan due March 2025. Encounters Date Type Department Care Team Description 05/20/2025 Results Follow-Up Gastroenterology - [address] [phone] Suzy Medeiros MD 05/16/2025 2:30 PM EST Office Visit Internal Medicine - [place] [address] [facility] [address] [place] [phone] Anjelica Monteiro PA Left lower quadrant abdominal pain (Primary Dx) 04/26/2025 5:30 PM EDT Office Visit Walk-In Clinic - [address] [phone] Roman Paz NP Symptoms of upper respiratory infection (URI) (Primary Dx); Acute exacerbation of COPD with asthma ([facility] V24, [facility] V28) 04/26/2025 Telephone Internal Medicine - [place] [address] [facility] [address] [place] [phone] Anjelica Monteiro PA 04/18/2025 10:45 AM EDT Office Visit Thoracic Surgery - [place] [address] [facility] [address] [place] [phone] Kat Cai PA History of malignant carcinoid tumor (Primary Dx); Multiple pulmonary nodules 04/16/2025 4:00 PM EDT Office Visit Internal Medicine [facility] [address] [phone] Anjelica Monteiro PA COPD with asthma (CMS/HCC V24, CMS/HCC V28) (Primary Dx); History of malignant carcinoid tumor; Gastroesophageal reflux disease, unspecified whether esophagitis present; Obesity (BMI 30-39.9) 04/12/2025 10:50 AM EDT - 04/12/2025 11:59 PM EDT Hospital Encounter [facility] CT Scan [address] [place] [phone] History of malignant carcinoid tumor Discharge Disposition: Home or Self Care 04/02/2025 4:14 PM EDT Anesthesia Event [facility] Endoscopy [address] [place] [phone] Osmel Alejandra DO Saliga, Jesse L, MD 04/02/2025 2:21 PM EDT - 04/02/2025 11:59 PM EDT Hospital Encounter [facility] Endoscopy [address] [place] [phone] Suzy Medeiros MD Steele, Matthew G, CRNA Walsh, Michael, DO Screening for colorectal cancer Discharge Disposition: Home or Self Care 03/04/2025 Telephone Gastroenterology [facility] 175 [facility] [address] [phone] Suzy Medeiros MD 02/20/2025 Telephone [facility] Hematology Oncology [address] [place] [address] Gretchen Abdullahi DO 02/19/2025 11:45 AM EDT Office Visit [facility] Hematology Oncology [address] [place] [address] Gretchen Abdullahi DO Malignant carcinoid tumor of lung (CMS/HCC V24, CMS/HCC V28) (Primary Dx); Mild anemia; Other fatigue from Last 3 Months Immunizations Immunization Administration Dates Next Due Influenza trivalent, 0.5mL, preservative free (Fluarix; FluLaval; Fluzone) ages 6mo and older (Afluria) 3 years and older 07/13/2016 Influenza, Unspecified 06/16/2020 AcesoBee SARS-CoV-2 COVID-19, mRNA, LNP-S, preservative free 08/15/2020,07/25/2020 Pneumococcal polysaccharide 23 valent (Pneumovax 23) 2yo and older 07/13/2016 Tdap Tetanus diptheria acell ular pertussis (Boostrix; Adacel) 7yo and older 09/29/2010 Surgical History Surgery Date Site/Laterality Comments SECTION PROCEDURE: HI DELIVERY ONLY; COMMENT: X1 UPPER GASTROINTESTINAL ENDOSCOPY 08/01/2020 PROCEDURE: HI UPPER GI ENDOSCOPY PERFORMED; COMMENT: Normal CHOLECYSTECTOMY 10/07/2020 PROCEDURE: HI LAPAROSCOPY SURG CHOLECYSTECTOMY SECTION, LOW TRANSVERSE INCISION AND DRAINAGE FOOT Right AGE 10 LUNG SEGMENTECTOMY 10/02/2024 Right RLL wedge & segment Medical History Medical History Date Comments Backache, unspecified 10/06/2006 DX:Backach e, unspecified; COMMENT: she has been told it is due to scoliosis Iron deficiency anemia, unspecified 10/06/2006 DX:Iron deficiency anemia, unspecified GERD (gastroesophageal reflu x disease) 01/11/2017 DX:GERD (gastroesophageal re flux disease) Allergic rhinitis DX:Allergic rh initis COPD with asthma ([facility] V2 4, [facility] V28) DX:COPD with asthma ([facility]) Tobacco abuse disorder DX:Tobacc o abuse disorder Obesity (BMI 30-39.9) DX:Obesity (BMI 30-39.9) Vitamin D deficiency DX:Vitamin D deficiency 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 Nausea and vomiting DX:Nausea an d vomiting Cough DX:Cough PONV (postoperative nausea a nd vomiting) coughing and vomiting Anxiety Cancer ([facility] V24, [facility] V28) Carcinoid tumor determined b y biopsy of lung ([facility] V28) 09/17/2024 Family History Medical History Relation Name Comments Other: Gastric cancer Aunt Other: Liver cancer Father hep C Lung cancer Mother Relation Name Status Comments Aunt Father Alive htn, cabg Maternal Grandmother leukemi a Mother Alive htn, asthma, ar thritis, hypercholesTEROL Paternal Grandmother liver c ancer Social History Tobacco Use Types Packs/Day Years Used Date Smoking Tobacco: Former Cigarettes 0.3 27 0 06/27/1996 - 07/02/2023 Smokeless Tobacco: Never Tobacco Cessation:Counseling Given: Not Answered Alcohol Use Standard Drinks/Week Comments No 0 [...] ed Within the last 3 months, ho w many times did you visit the emergency [...] for your loved ones. For example, child watch attendant or elderly care for an older adult? [...] Orientation Straight 07/26/2024 12 :38 PM EST Obstetrics History Last Filed Vital Signs Vital Sign Reading Time Taken Comments Blood Pressure 137/93 05/16/2025 1:57 PM EST Pulse 75 05/16/2025 1:57 PM EST Temperature 36.7 C (98 F) 05/16/2025 1:57 PM EST Respiratory Rate 16 04/18/2025 10:42 AM EDT Oxygen Saturation 98% 05/16/2025 1:57 PM EST Inhaled Oxygen Concentration - - Weight 97.6 kg (215 lb 3.2 oz) 05/16/2025 1:57 P M EST Height 165.1 cm (5' 5 ) 05/16/2025 1:57 PM EST Body Mass Index 35.81 05/16/2025 1:57 PM EST Plan of Treatment Upcoming Encounters Date Type Department Care Team (Late st Contact Info) Description 06/04/2025 2:15 PM EST Office Visit [facility] Hematology Oncology [address] [place] [phone] Gretchen Abdullahi DO [address] [place] [address] 06/21/2025 11:25 AM EST Office Visit Pulmonology - [place] [address] [facility] [address] [place] [phone] Ladi Griffin, DALIA [address] [place] [phone] 02/18/2026 9:15 AM EDT Office Visit [facility] Hematology Oncology [address] [place] [phone] Gretchen Abdullahi DO [address] [place] [address] Health Maintenance Due Date Last Done Comments Hepatitis B Vaccines (1 of 3 - 19+ 3-dose series) 1995 Pneumococcal Vaccine: Pediatrics (0 to 5 Years) and At-Risk Patients (6 to 49 Years) (2 of 2 - PCV) 07/13/2017 07/13/2016 Cervical Cancer Screening: P ap Smear 03/11/2019 03/11/2016, 03/11/2016 COVID-19 Vaccine (3 - Pfizer risk series) 09/12/2020 08/15/2020, 07/25/2020 DTaP,Tdap,and Td Vaccines (2 - Td or Tdap) 09/29/2020 09/29/2010 HIV Screening 05/30/2022 Hepatitis C Screening 05/30/2022 Breast Cancer Screening 12/20/2022 12/20/2020 Influenza Vaccine (#1) 2025 , 07/13/2016 Social Influencers of Health Screening 10/02/2025 10/02/2024 Cholesterol Screening (Lipid Panel) 10/20/2027 10/19/2022 Colorectal Cancer Screening: Colonoscopy 04/02/2030 04/02/2025 RSV Immunization Adult Patients (1 - 1-dose 75+ series) 2051 Depression Screening Completed 08/14/2024 HIB Vaccines Aged Out No longer eligi ble based on patient's age to complete this topic HPV Vaccines Aged Out No longer eligi ble based on patient's age to complete this topic Hepatitis A Vaccines Aged Out No long er eligible based on patient's age to complete this topic IPV Vaccines Aged Out No longer eligi ble based on patient's age to complete this topic MMR Vaccines Aged Out No longer eligi ble based on patient's age to complete this topic Meningococcal ACWY Vaccine Aged Out N o longer eligible based on patient's age to complete this topic Meningococcal B Vaccine Aged Out No l onger eligible based on patient's age to complete this topic RSV Immunization Patients Under 20 months Aged Out No longer eligible b ased on patient's age to complete this topic Varicella Vaccines Aged Out No longer eligible based on patient's age to complete this topic Medical Devices Implanted Type Area Atlassian Administrator Device Identifier Shelf Expiration Date Model / Serial / Lot Marker Cobra Superlock - Sna - [id number] Implanted:Qty : 1 on 09/06/2024 by Lupe Trevino MD at [facility] Imaging Implants Right: Lung [employer] [id number] 05/02/2028 [id number] / NA / [id number] Sealant Progel Air Pleural 4ml - Sn/A - [id number] Implanted:Qty : 1 on 10/02/2024 by Paul Patel MD at [facility] [employer] Right: Chest CR BARD - DAVOL DIV [id number] 03/27/2026 [id number] / N/A / [id number] Procedures Procedure Name Priority Date/Time Associated Diagnosis Comments POC INFLUENZA A/B Routine 04/26/2025 5:5 3 PM EDT Symptoms of upper respiratory infection (URI) POC RAPID [id number], MOLECULAR Routine 04/26/2025 5:52 PM EDT Symptoms of upper respiratory infection (URI) CT CHEST WO CONTRAST Routine 04/12/2025 11:03 AM EDT History of malignant carcinoid tumor COLONOSCOPY Routine 04/02/2025 4:33 PM EDT Screening for colorectal cancer TISSUE EXAM Routine 04/02/2025 4:26 PM EDT Screening for colorectal cancer FERRITIN Add-On 02/19/2025 11:55 AM EDT CBC WITH AUTO DIFFERENTIAL Routine 02/19/2025 11:55 AM EDT Mild anemia THYROID STIMULATING HORMONE WITH REFLEX TO FREE T4 AND FREE T3 Routine 02/19/2025 11:55 AM EDT Mild anemia Other fatigue VITAMIN B12 Routine 02/19/2025 11:55 AM EDT Mild anemia IRON AND TIBC Routine 02/19/2025 11:55 AM EDT Mild anemia CBC AND DIFFERENTIAL Routine 02/19/2025 11:55 AM EDT Mild anemia LIPID PANEL Routine 10/19/2022 SCREENING MAMMOGRAPHY BI 2-VIEW BREAST INC CAD Routine 12/20/2020 12:19 PM EDT Encounter for screening mammogram for malignant neoplasm of breast HM HPV Routine 03/11/2016 from Last 3 Months or Most Recently Relevant to Health Maintenance Results * POC Influenza A/B manually resulted (04/26/2025 5:53 PM EDT) Rapid Influenza A AGN POC Negative Negative Swab 04/26/2025 5:53 PM EDT us Roman Paz AGRICULTURE ENGINEER POINT OF CARE TEST ENTER/EDIT ORDERABLES Final Result * Poc Rapid [id number], MOLECULAR (04/26/2025 5:52 PM EDT) Pathologist [facility] COVID-19/SARS- COV-2 Rapid POC Negative Negative Swab Nasopharyngeal structure / Unknown 04/26/2025 5:52 PM EDT us Roman Paz AGRICULTURE ENGINEER POINT OF CARE TEST ENTER/EDIT ORDERABLES Final Result * CT Chest wo Contrast (04/12/2025 11:03 AM EDT) Anatomical Region Laterality Modality Body Computed Tomogra phy 04/16/2025 10:4 7 AM EDT Impressions 04/16/2025 11:07 AM EDT Impression: 1. Partial right lower lobectomy sequela. 2. Stable numerous sub-5 mm solid pulmonary nodules. 3. No developing thoracic lymphadenopathy. [facility] ([id number]) -------- FINAL REPORT -------- Dictated By: Margoth Hollins Dictated Date: 04/16/2025 10:47 ET Assigned Physician: Margoth Hollins Reviewed and Electronically Signed By: Margoth Hollins Signed Date: 04/16/2025 11:07 ET Workstation ID: [id number] Transcribed By: Self Edit Transcribed Date: 04/16/2025 10:47 ET Narrative 04/16/2025 11:07 AM EDT History: Surveillance imaging status post right lower lobe anterior basal segmentectomy for carcinoid/neuroendocrine tumor 10/02/24. Comparison: 08/21/24 Technique: Helical volumetric imaging of the thorax was performed without IV contrast. DLP: 895.37 mGy/cm GE MeBeampeed VCT Iterative reconstruction technique Findings: Right lower lobe anterior basal segmentectomy sequela are now seen with the spiculated 8 mm nodule reported previously no longer identified. The trachea and central bronchial tree remain patent. There are numerous solid, noncalcified nodules with circumscribed margins scattered within both lungs, all sub-5 mm and unchanged from the previous study. No suspicious developing nodule is seen. No pleural or pericardial effusions are identified. The unopacified heart and great vessels are unremarkable. No developing thoracic lymphadenopathy is seen. A small portion of the upper abdomen included on the lowest images through the thorax is remarkable for mild splenomegaly, unchanged, the spleen approximately 14 cm in AP diameter. Cholecystectomy clips are noted. No significant osseous abnormality is seen. Procedure Note Margoth Hollins MD - 04/16/2025 History: Surveillance imaging status post right lower lobe anterior basalsegmentectomy for carcinoid/neuroendocrine tumor 10/02/24. Comparison: 08/21/24 Technique: Helical volumetric imaging of the thorax was performed withoutIV contrast. DLP: 895.37 mGy/cm GE MeBeampeed VCT Iterative reconstruction technique Findings: Right lower lobe anterior basal segmentectomy sequela are now seen withthe spiculated 8 mm nodule reported previously no longer identified. Thetrachea and central bronchial tree remain patent. There are numerous solid, noncalcified nodules with circumscribed marginsscattered within both lungs, all sub-5 mm and unchanged from the previousstudy. No suspicious developing nodule is seen. No pleural or pericardial effusions are identified. The unopacified heart and great vessels are unremarkable. No developingthoracic lymphadenopathy is seen. A small portion of the upper abdomen included on the lowest images throughthe thorax is remarkable for mild splenomegaly, unchanged, the spleenapproximately 14 cm in AP diameter. Cholecystectomy clips are noted. No significant osseous abnormality is seen. IMPRESSION: Impression: 1. Partial right lower lobectomy sequela. 2. Stable numerous sub-5 mm solid pulmonary nodules. 3. No developing thoracic lymphadenopathy. [facility] ([id number]) -------- FINAL REPORT -------- Dictated By: Margoth Hollins Dictated Date: 04/16/2025 10:47 ET Assigned Physician: Margoth Hollins Reviewed and Electronically Signed By: Margoth Hollins Signed Date: 04/16/2025 11:07 ET Workstation ID: [id number] Transcribed By: Self Edit Transcribed Date: 04/16/2025 10:47 ET Kat JUAREZ IM CT PROCEDURES Final Resul t * COLONOSCOPY Anesthesia - MAC; [facility] ENDOSCOPY (04/02/2025 4:33 PM EDT) Anatomical Region Laterality Modality Endoscopy 04/02/2025 4:12 PM EDT Impressions 04/02/2025 4:37 PM EDT - Three 3 to 5 mm polyps in the transverse colon and in the ascending colon, removed with a cold snare. Resected and retrieved. - Diverticulosis in the sigmoid colon. - Internal hemorrhoids. Recommendation: - Await pathology results. - Repeat colonoscopy in 5 years for surveillance. Narrative 04/02/2025 4:37 PM EDT [facility] GI Patient Name: Anya Xavier Procedure Date: 04/02/2025 4:12 PM Date of : 1975 Age: 49 Gender: Female Note Status: Finalized Attending MD: Suzy Medeiros MD, Procedure Date No Time: 04/02/2025 Procedure: Colonoscopy Indications: Screening for colorectal malignant neoplasm Providers: Suzy Medeiros MD Referring MD: Suzy Medeiros MD Medicines: Monitored Anesthesia Care Complications: No immediate complications. Estimated blood loss: Minimal. Estimated Blood Loss: Estimated blood loss was minimal. Procedure: Pre-Anesthesia Assessment: - Prior to the procedure, a History and Physical was performed, and patient medications and allergies were reviewed. The patient is competent. The risks and benefits of the procedure and the sedation options and risks were discussed with the patient. All questions were answered and informed consent was obtained. Patient identification and proposed procedure were verified by the physician, the nurse, the net repairer and the oil refinery process technician in the pre-procedure area in the endoscopy suite. Mental Status Examination: alert and oriented. Airway Examination: normal oropharyngeal airway and neck mobility. Respiratory Examination: clear to auscultation. CV Examination: normal. Prophylactic Antibiotics: The patient does not require prophylactic antibiotics. Prior Anticoagulants: The patient has taken no anticoagulant or antiplatelet agents. ASA Grade Assessment: III - A patient with severe systemic disease. After reviewing the risks and benefits, the patient was deemed in satisfactory condition to undergo the procedure. The anesthesia plan was to use monitored anesthesia care (MAC). Immediately prior to administration of medications, the patient was re-assessed for adequacy to receive sedatives. The heart rate, respiratory rate, oxygen saturations, blood pressure, adequacy of pulmonary ventilation, and response to care were monitored throughout the procedure. The physical status of the patient was re-assessed after the procedure. After I obtained informed consent, the scope was passed under direct vision. Throughout the procedure, the patient's blood pressure, pulse, and oxygen saturations were monitored continuously. The Colonoscope was introduced through the anus and advanced to the cecum, identified by appendiceal orifice and ileocecal valve. The colonoscopy was performed without difficulty. The patient tolerated the procedure well. The quality of the bowel preparation was good. Findings: The perianal and digital rectal examinations were normal. Three sessile polyps were found in the transverse colon and ascending colon. The polyps were 3 to 5 mm in size. These polyps were removed with a cold snare. Resection and retrieval were complete. Estimated blood loss was minimal. Scattered small-mouthed diverticula were found in the sigmoid colon. Internal hemorrhoids were found during retroflexion. The hemorrhoids were Grade II (internal hemorrhoids that prolapse but reduce spontaneously). Procedure Code(s): --- Professional --- 55627, Colonoscopy, flexible; with removal of tumor(s), polyp(s), or other lesion(s) by snare technique Diagnosis Code(s): --- Professional --- D12.3, Benign neoplasm of transverse colon (hepatic flexure or splenic flexure) D12.2, Benign neoplasm of ascending colon CPT copyright 2020 [employer]. All rights reserved. The codes documented in this report are preliminary and upon glove stitcher review may be revised to meet current compliance requirements. Suzy Medeiros MD 04/02/2025 4:37:41 PM This report has been signed electronically.Suzy Medeiros MD Number of Addenda: 0 Note Initiated On: 04/02/2025 4:12 PM Scope In: 4:18:44 PM Scope Out: 4:33:49 PM Endoscopy Department at [facility] - [address] [place] [id number] Procedure Note Suzy Medeiros MD - 04/02/2025 [facility] GI Patient Name: Anya Xavier Procedure Date: 04/02/2025 4:12 PM Date of : 1975 Age: 49 Gender: Female Note Status: Finalized Attending MD: Suzy Medeiros MD, Procedure Date No Time: 04/02/2025 Procedure: Colonoscopy Indications: Screening for colorectal malignant neoplasm Providers: Suzy Medeiros MD Referring MD: Suzy Medeiros MD Medicines: Monitored Anesthesia Care Complications: No immediate complications. Estimated blood loss: Minimal. Estimated Blood Loss: Estimated blood loss was minimal. Procedure: Pre-Anesthesia Assessment: - Prior to the procedure, a History and Physicalwas performed, and patient medications and allergieswere reviewed. The patient is competent. The risks and benefits of the procedure and the sedation optionsand risks were discussed with the patient. Allquestions were answered and informed consent was obtained. Patient identification and proposed procedure were verified by the physician, the nurse, theanesthetist and the oil refinery process technician in the pre-procedure area in the endoscopy suite. Mental Status Examination: alertand oriented. Airway Examination: normal oropharyngeal airway and neck mobility. Respiratory Examination: clear to auscultation. CV Examination: normal. Prophylactic Antibiotics: The patient does notrequire prophylactic antibiotics. Prior Anticoagulants: The patient has taken no anticoagulant or antiplatelet agents. ASA Grade Assessment: III - A patient with severe systemic disease. After reviewing the risksand benefits, the patient was deemed in satisfactory condition to undergo the procedure. The anesthesia plan was to use monitored anesthesia care (MAC). Immediately prior to administration of medications, the patient was re-assessed for adequacy to receive sedatives. The heart rate, respiratory rate, oxygen saturations, blood pressure, adequacy of pulmonary ventilation, and response to care were monitored throughout the procedure. The physical status ofthe patient was re-assessed after the procedure. After I obtained informed consent, the scope was passed under direct vision. Throughout theprocedure, the patient's blood pressure, pulse, and oxygen saturations were monitored continuously. The Colonoscope was introduced through the anus and advanced to the cecum, identified by appendiceal orifice and ileocecal valve. The colonoscopy was performed without difficulty. The patient tolerated the procedure well. The quality of the bowel preparation was good. Findings: The perianal and digital rectal examinations were normal. Three sessile polyps were found in the transverse colon and ascending colon. The polyps were 3 to 5mm in size. These polyps were removed with a coldsnare. Resection and retrieval were complete. Estimatedblood loss was minimal. Scattered small-mouthed diverticula were found inthe sigmoid colon. Internal hemorrhoids were found duringretroflexion. The hemorrhoids were Grade II (internal hemorrhoids that prolapse but reduce spontaneously). Procedure Code(s): --- Professional --- 41874, Colonoscopy, flexible; with removal of tumor(s), polyp(s), or other lesion(s) by snare technique Diagnosis Code(s): --- Professional --- D12.3, Benign neoplasm of transverse colon (hepatic flexure or splenic flexure) D12.2, Benign neoplasm of ascending colon CPT copyright 2020 [employer]. All rights reserved. The codes documented in this report are preliminary and upon glove stitcher reviewmay be revised to meet current compliance requirements. Suzy Medeiros MD 04/02/2025 4:37:41 PM This report has been signed electronically.Suzy Medeiros MD Number of Addenda: 0 Note Initiated On: 04/02/2025 4:12 PM Scope In: 4:18:44 PM Scope Out: 4:33:49 PM Endoscopy Department at [facility] - [address] [place] [phone] IMPRESSION: - Three 3 to 5 mm polyps in the transverse colon and in the ascending colon, removed with a cold snare. Resected and retrieved. - Diverticulosis in the sigmoid colon. - Internal hemorrhoids. Recommendation: - Await pathology results. - Repeat colonoscopy in 5 years for surveillance. us Suzy Medeiros MD GI~PROCEDURE ORDERABLES Fin al Result * Tissue exam (04/02/2025 4:26 PM EDT) Final Diagnosis A. Large Intestine, Right/Ascending Colon, polyps x2: - Tubular adenoma(s). B. Large Intestine, Transverse Colon, polyp x1: - Tubular adenoma. 04/04/2025 9:39 AM EDT [facility] at 0939 EDT Gross Description A. Large Intestine, Right/Ascending Colon, polyps x2: Labeled ascend colon polyp x 2 . Received in formalin is a 1.1 cm irregular navarro mucosal tissue fragment with an eccentric 0.2 cm red-brown possible polyp. The margin is inked black and the tissue is bisected. Also received in same container are four additional navarro mucosal tissue fragments, each measuring approximately 0.1 cm in greatest dimension. The specimen is wrapped in paper and entirely submitted in one cassette, six pieces, multiple levels on one slide. B. Large Intestine, Transverse Colon, polyp x1: Labeled trans colon polyp x 1 . Received in formalin mucosal tissue fragments, each measuring approximately 0.1 cm in greatest dimension, which are wrapped in paper and submitted in toto in one cassette, two pieces, multiple levels and one slide. BOGDAN 04/04/2025 9:39 AM EDT [facility] Disclaimer Unless otherwise specified, all tissue is 10% NB formalin fixed and paraffin embedded. 04/04/2025 9:39 AM EDT [facility] Tissue Ascending colon structure / Unknown 04/02/2025 4:26 PM EDT 04/03/2025 5:11 AM EDT Tissue specimen (specimen) Transverse colon structure / Unknown 04/02/2025 4:29 PM EDT 04/03/2025 5:11 AM EDT us Suzy Medeiros MD LAB PATHOLOGY ORDERABLES Fi nal Result Performing Organization Address [facility]/ZIP Co de Phone Number [facility] [address] [place] [address], [place] [phone] * Thyroid stimulating hormone with reflex to free t4 and free t3 (02/19/2025 11:55 AM EDT) TSH 1.86 0.40 - 4.00 mcIU/mL LAB CHEMISTRY METHOD 02/19/2025 3:40 PM EDT [facility] Blood Venous blood specimen / Unknown Venipuncture / Unknown 02/19/2025 11:55 AM EDT 02/19/2025 1:33 PM EDT us Gretchen Abdullahi DO LAB BLOOD ORDERABLES Final Result Performing Organization Address [facility]/ZIP Co de Phone Number [facility] [address] [place] [address], [place] [phone] * (ABNORMAL) CBC auto differential (02/19/2025 11:55 AM EDT) WBC 6.2 4.8 - 10.8 K/[facility] LAB HEMETOLOGY METHOD 02/19/2025 1:42 PM EDT [facility] RBC 4.20 3.80 - 4.80 M/[facility] LAB HEMETOLOGY METHOD 02/19/2025 1:42 PM EDT [facility] Hemoglobin 11.1(L) 11.5 - 16.0 g/dL LAB HEMETOLOGY METHOD 02/19/2025 1:42 PM [facility] Hematocrit 34.8(L) 35.0 - 47.0 % LAB HEMETOLOGY METHOD 02/19/2025 1:42 PM [facility] MCV 83.7 79.0 - 98.0 FL LAB HEMETOLOGY METHOD 02/19/2025 1:42 PM [facility] MCH 26.7(L) 27.0 - 32.0 pcg LAB HEMETOLOGY METHOD 02/19/2025 1:42 PM [facility] MCHC 31.9(L) 32.0 - 37.0 g/dL LAB HEMETOLOGY METHOD 02/19/2025 1:42 PM [facility] RDW 14.0 11.0 - 15.0 % LAB HEMETOLOGY METHOD 02/19/2025 1:42 PM [facility] Platelets 264 130 - 400 K/mcL LAB HEMETOLOGY METHOD 02/19/2025 1:42 PM [facility] MPV 11.5(H) 7.0 - 11.0 FL LAB HEMETOLOGY METHOD 02/19/2025 1:42 PM [facility] NRBC 0.0 <1.0 % LAB HEMETOLOGY METHOD 02/19/2025 1:42 PM [facility] NRBC Absolute 0.00 <0.10 K/mcL LAB HEMETOLOGY METHOD 02/19/2025 1:42 PM [facility] Neutrophils Relative 62.6 % LAB HEMETOLOGY METHOD 02/19/2025 1:42 PM [facility] Lymphocytes Relative 28.7 % LAB HEMETOLOGY METHOD 02/19/2025 1:42 PM [facility] Monocytes Relative 5.8 % LAB HEMETOLOGY METHOD 02/19/2025 1:42 PM EDT [facility] Eosinophils Relative 1.8 % LAB HEMETOLOGY METHOD 02/19/2025 1:42 PM EDT [facility] Basophils Relative 0.5 % LAB HEMETOLOGY METHOD 02/19/2025 1:42 PM EDT [facility] Immature Granulocytes Relative 0.6 % LAB HEMETOLOGY METHOD 02/19/2025 1:42 PM EDT [facility] Neutrophils Absolute 3.86 1.50 - 7.00 K/mcL LAB HEMETOLOGY METHOD 02/19/2025 1:42 PM EDT [facility] Lymphocytes Absolute 1.77 1.00 - 5.00 K/mcL LAB HEMETOLOGY METHOD 02/19/2025 1:42 PM EDT [facility] Monocytes Absolute 0.36 0.20 - 1.00 K/mcL LAB HEMETOLOGY METHOD 02/19/2025 1:42 PM EDT [facility] Eosinophils Absolute 0.11 0.00 - 0.50 K/mcL LAB HEMETOLOGY METHOD 02/19/2025 1:42 PM EDT [facility] Basophils Absolute 0.03 0.00 - 0.20 K/mcL LAB HEMETOLOGY METHOD 02/19/2025 1:42 PM EDT [facility] Immature Granulocytes Absolute 0.04(H) 0.00 - 0.03 K/mcL LAB HEMETOLOGY METHOD 02/19/2025 1:42 PM EDT [facility] Blood Venous blood specimen / Unknown Venipuncture / Unknown 02/19/2025 11:55 AM EDT 02/19/2025 1:32 PM EDT us Gretchen Abdullahi DO LAB BLOOD ORDERABLES Final Result [facility] [address] [place] [address], [place] [phone] * (ABNORMAL) Iron and TIBC (02/19/2025 11:55 AM EDT) [facility] Iron 44 40 - 150 mcg/dL LAB CHEMISTRY METHOD 02/19/2025 2:31 PM EDT [facility] TIBC 413 250 - 450 mcg/dL LAB CHEMISTRY METHOD 02/19/2025 2:31 PM EDT [facility] Iron Saturation 11(L) 15 - 50 % LAB CHEMISTRY METHOD 02/19/2025 2:31 PM EDT [facility] Blood Venous blood specimen / Unknown Venipuncture / Unknown 02/19/2025 11:55 AM EDT 02/19/2025 1:33 PM EDT Gretchen Abdullahi DO LAB BLOOD ORDERABLES Final Result [facility] [address] [place] [address], [place] [phone] * (ABNORMAL) Ferritin (02/19/2025 11:55 AM EDT) [facility] Ferritin 6(L) 8 - 252 ng/mL LAB CHEMISTRY METHOD 02/19/2025 4:26 PM EDT [facility] Blood Venous blood specimen / Unknown Venipuncture / Unknown 02/19/2025 11:55 AM EDT 02/19/2025 1:33 PM EDT Gretchen Abdullahi DO LAB BLOOD ORDERABLES Final Result [facility] [address] [place] [address], [place] [phone] * Vitamin B12 (02/19/2025 11:55 AM EDT) [facility] Vitamin B-12 260 250 - 900 pcg/mL LAB CHEMISTRY METHOD 02/19/2025 2:31 PM EDT [facility] Blood Venous blood specimen / Unknown Venipuncture / Unknown 02/19/2025 11:55 AM EDT 02/19/2025 1:33 PM EDT Gretchen Abdullahi DO LAB BLOOD ORDERABLES Final Result [facility] [address] [place] [address], [place] [phone] * (ABNORMAL) Lipid panel (10/19/2022) LDL/HDL Ratio 5(A) 0 - 4 Triglycerides 129 0 - 150 mg/dL Cholesterol 180 0 - 200 mg/dL HDL 38(A) >=40 mg/dL LDL Cholesterol 117(A) 0 - 100 mg/dL Blood Venous blood specimen / Unknown Historical Provider LAB BLOOD ORDERABLES Valery l Result * SCREENING MAMMOGRAPHY BI 2-VIEW BREAST INC CAD (12/20/2020 12:19 PM EDT) Anatomical Region Laterality Modality Radiographic Cori ging 10/22/2020 1:55 PM EDT Narrative 12/22/2020 4:52 PM EDT This is a summary report. The complete report is available in the patient's medical record. If you cannot access the medical record, please contact the sending organization for a detailed fax or copy. Exam: Screening mammogram Findings: Digital bilateral full-field screening mammography is performed with tomosynthesis and interpreted with the aid of computer-aided detection. This is a baseline exam. Breast parenchyma is composed of scattered fibroglandular densities. No suspicious mass, architectural distortion, or suspicious calcifications. Impression: No mammographic evidence of malignancy. BI-RADS 1 - negative Procedure Note Naomy Napier MD - 06/15/2022 This is a summary report. The complete report is available in thepatient's medical record. If you cannot access the medical record, pleasecontact the sending organization for a detailed fax or copy. Exam: Screening mammogram Findings: Digital bilateral full-field screening mammography is performedwith tomosynthesis and interpreted with the aid of computer-aideddetection. This is a baseline exam. Breast parenchyma is composed of scattered fibroglandular densities. Nosuspicious mass, architectural distortion, or suspicious calcifications. Impression: No mammographic evidence of malignancy. BI-RADS 1 - negative Ray Prince MD IMG XR PROCEDURES Fin al Result * Cervical Cancer Screening: HPV (03/11/2016) Cervical Cancer Screening: HPV Negative, Abstracted Historical Provider HEALTH MAINTENANCE Final Result from Last 3 Months or Most Recently Relevant to Health Maintenance Insurance [facility] Advance Directives * Full Code - Default (Latest Code Status on File) Date Activated Date Inactivated Comments 10/02/2024 2:53 PM 10/03/2024 6:00 PM This is order is used when code status has not been discussed with the patient, or code status is otherwise unknown/unconfirmed To update the patient's code status, place a code status order. Do not modify or discontinue any currently active code status orders. * Full Code - Default Date Activated Date Inactivated Comments 10/02/2024 5:53 AM 10/02/2024 2:53 PM This is order is used when code status has not been discussed with the patient, or code status is otherwise unknown/unconfirmed To update the patient's code status, place a code status order. Do not modify or discontinue any currently active code status orders. * Full Code - Default Date Activated Date Inactivated Comments 09/06/2024 10:06 AM 09/06/2024 5:39 PM This is ord er is used when code status has not been discussed with the patient, or code status is otherwise unknown/unconfirmed To update the patient's code status, place a code status order. Do not modify or discontinue any currently active code status orders. Care Teams Anchor Operator Relationship Specialty Start Date End Date Anjelica Monteiro PA [address] [address] PCP - General Primary Care 08/14/24
--- NOTE | 2025-05-22 12:02 | MHC.OFFVISWM ---
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: Details: Start time: 12pm, End time: 12.45pm ?I spent 40 minutes speaking with the patient on the phone plus an additional 5 minutes reviewing and updating records for a total of 45 minutes HPI Comments Details: Previous weight loss efforts: self diets and exercise Wakes up: 5am, Sleeps: 8pm Breakfast: 8.30am (2 eggs with toast) Lunch: 12pm (salad or fish) Dinner: 4pm (rice, potatoes, pork chops) Snacks: none Exercise: has a treadmill (inclines and track calories) and stationary bike (tracks calories) Beverages: Coffee: (1 cup/d with sugar), Tea: none, Soda: none, Juice: none, ETOH: none PFSH Medical History (Updated 05/22/25 @ 12:11 by Levi Baron MD) Lung cancer BMI 36.0-36.9,adult Obesity Arthritis Anxiety Depressed GERD (gastroesophageal reflux disease) COPD (chronic obstructive pulmonary disease) Surgical History (Updated 03/08/25 @ 13:18 by Joelle Gutiérrez CMA) Hx of cholecystectomy History of lung surgery Hx of section Family History Mother Kidney failure COPD with asthma Heart disease Father No problems noted. Sister No problems noted. Sister No problems noted. Brother No problems noted. Son No problems noted. Son No problems noted. Daughter No problems noted. Daughter No problems noted. Daughter No problems noted. Daughter No problems noted. Daughter No problems noted. Daughter No problems noted. Social History (Updated 03/08/25 @ 13:19 by Joelle Gutiérrez CMA) Alcohol intake: never Patient Tobacco Use Status: Former Tobacco user Telehealth Telehealth Telehealth Platform: Telephone Location of provider rendering services: practice address Location of patient: address on file Patient Identification confirmed using: Name, : Yes Telehealth method: voice only Patient verbally consented to treatment: Yes Patient verbally consented to billing insurance company: Yes Patient informed of any privacy concerns related to visit: Yes Minutes spent on Phone/Video with Pt.: 46 Assessment & Plan Assessment & Plan (1) Obesity (BMI 30-39.9): Code(s): E66.9 - Obesity, unspecified Category: Medical Plan: 1. The patient is not a candidate for bariatric surgery and she was recently treated for lung cancer 6 months ago with lung resection. Given her lung resection, risk or recurrence and history of COPD, it is imperative to lose weight. I ordered a medication to help you with the weight loss which is called Zepbound. My office will try to authorize it. Please let me know when you receive it so I can give you a meal and exercise plan. Common side effects include nausea, vomiting, constipation, diarrhea, abdominal pain. Please let me know if you develop any of these symptoms. 2. Please send me weight measurements from your body composition scale. Medications: New tirzepatide (weight loss) (Zepbound) for 4 weeks 2.5 mg (0.5 mL) subcut QWEEK 2 mL 0RF C34.90 - Malignant neoplasm of unspecified part of unspecified bronchus or lung, E66.9 - Obesity, unspecified, J44.9 - Chronic obstructive pulmonary disease, unspecified
== END 2025-05-22 13:52 | disposition home or self-care (01) ==
LOC: HO.HBS 07:52
PROVIDERS: Visit Provider Surgery
DX: E66.9 Obesity, unspecified (principal)
CPT/HCPCS: 99204

== ENCOUNTER 2025-06-17 08:14 | Outpatient (REF) | payer OTHER, SELFPAY ==
--- NOTE | ~2025-06-17 | XR_ITS ---
EXAMINATION: XR CHEST 2 VIEWS HISTORY: E66.9 - Obesity, unspecified COMPARISON: Comparison is made with the prior examination dated 07/07/2022. FINDINGS: PA and lateral views of the chest are submitted. Postsurgical changes are noted on the right with multiple suture lines. The lungs are expanded and clear. There is no pleural effusion, pneumothorax, or pulmonary vascular congestion. The heart is normal in size. The bones are intact. XR/XR chest 2V IMPRESSION: No acute cardiopulmonary abnormality. Electronically signed by: Zachery Barber MD 06/17/2025 09:28 AM [facility]
--- OUTSIDE RECORDS SUMMARY | 2025-06-17 08:21 | XMS_ITS | Encounter Summary ---
Author Organization [facility] Address [address] [place] [address] Care Team Providers Care Clinic Lpn Name Role Phone Anjelica Monteiro Primary Care Provider + Encounter Details Date Type Department Care Team ([facility] st Contact Info) Description 05/20/2025 Results Follow-Up Gastroenterology - [place] 175 [facility] 175 [facility] [address] [place] [phone] Suzy Medeiros MD 299 [facility] [address] [place] [address] Social History Tobacco Use Types Packs/Day Years [...] ed Within the last 3 months, ho ehlga many times did you visit the emergency [...] care for your loved ones. For example, registered nurse maternal child or elderly care for an older adult? [...] Certified Gastroenterology and Internal Medicine Transplant Hepatology [facility] documented in this encounter Plan of Treatment Upcoming Encounters Date Type Department Care Team (Late st Contact Info) Description 06/19/2025 8:30 AM EST Appointment [facility] [address] [place] [phone] 06/21/2025 11:25 AM EST Office Visit Pulmonology [facility] [address] [phone] Ladi Griffin NP [address] [place] [phone] 02/18/2026 9:15 AM EDT Office Visit [facility] Hematology Oncology [address] [place] [phone] Gretchen Abdullahi, DO [address] [place] [address] documented as of this encounter Visit Diagnoses Not on filedocumented in this encounter Additional Health Concerns Assessment Noted Time PHQ-9 Depression Total Score: 0 08/14/19 25 12:15 PM EST documented as of this encounter Care Teams Clinic Lpn Relationship Specialty Start Date End Date Anjelica Monteiro PA [address] [address] PCP - General Primary Care 08/14/24 documented as of this encounter
--- OUTSIDE RECORDS SUMMARY | 2025-06-17 08:21 | XMS_ITS | Clinical Summary ---
Author Organization [address] [facility] Address [address] [place] [address] Phone Care Team Providers Care Fuel Cell Technician Name Role Phone Anjelica Monteiro Primary Care Provider + Allergies No known active allergies Medications pantoprazole (PROTONIX) 40 mg EC tabletIndication s:Gastroesophage al reflux disease, unspecified whether esophagitis present Take 1 tablet (40 mg total) by mouth 2 (two) times a day before meals. 5 Active fluticasone-umec lidinium-vilante rol (Trelegy Ellipta) 100-62.5-25 mcg inhalerIndicatio ns:Pulmonary emphysema, unspecified emphysema type Inhale 1 puff (100 mcg total) by mouth 1 (one) time each day. Rinse mouth with water after use to reduce aftertaste and incidence of candidiasis. Do not swallow. 3 each 3 5 Active albuterol HFA (PROAIR HFA ; PROVENTIL HFA ; VENTOLIN HFA) 90 mcg/actuation inhalerIndicatio ns:Pulmonary emphysema, unspecified emphysema type Inhale 2 puffs by mouth every 4 (four) hours if needed for shortness of breath or wheezing. 18 g 2 5 Active triamcinolone (NASACORT) 55 mcg nasal inhalerIndicatio ns:Subacute cough,Chronic rhinitis Administer 2 sprays into each nostril 1 (one) time each day. 50.7 mL 3 5 Active ferrous sulfate 325 mg (65 mg elemental iron) tablet Take 1 tablet (325 mg total) by mouth 1 (one) time each day with breakfast. 30 each 11 5 02/21/20 26 Active cyanocobalamin (VITAMIN B-12) 500 mcg tablet TAKE 1 TABLET (500 MCG TOTAL) BY MOUTH 1 (ONE) TIME EACH DAY. 90 tablet 5 08/11/19 26 Active amoxicillin-clav ulanate (AUGMENTIN) 875-125 mg per tabletIndication s:Left lower quadrant abdominal pain Take 1 tablet by mouth 2 (two) times a day for 10 days. 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 Generalized anxiety disorder 01/30/2019 Post-nasal drainage 01/30/2019 GERD (gastroesophageal reflux disease) 7 Anxiety 12/06/2016 Dysphagia 12/06/2016 Helicobacter pylori infection 10/21/2006 Overview (06/04/2024): O update Backache 10/06/2006 Overview (06/04/2024): she has been told it is due to scoliosis IMO update Iron deficiency anemia 10/06/2006 Resolved Problems Problem Noted Date Diagnosed Date Resolved Date Carcinoid tumor determined by biopsy of lung 5 11/15/2024 Assessment & Plan (10/18/2024 11:46 AM [...] Encounters Date Type Department Care Team Description 06/04/2025 2:50 PM EST Lab Draw Station - [facility] [address] [facility] [address] [place] [phone] Mild anemia; Iron deficiency 06/04/2025 2:15 PM EST Office Visit [facility] Hematology Oncology [address] [place] [phone] Gretchen Abdullahi DO 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, [facility] V28) (Primary Dx); Mild anemia; Iron deficiency 05/20/2025 Results Follow-Up Gastroenterology [address] [phone] Suzy Medeiros MD 05/16/2025 2:30 PM EST Office Visit Internal Medicine - [place] 175 [facility] [address] [place] [phone] Anjelica Monteiro PA Left lower quadrant abdominal pain (Primary Dx) 04/26/2025 5:30 PM EDT Office Visit Walk-In Clinic - [address] [phone] Roman Paz, FUR GLAZER Symptoms of upper respiratory infection (URI) (Primary Dx); Acute exacerbation of COPD with asthma ([facility] V24, [facility] V28) 04/26/2025 Telephone Internal Medicine - [place] 175 [facility] [address] [place] [phone] Anjelica Monteiro PA 04/18/2025 10:45 AM EDT Office Visit Thoracic Surgery [facility] [address] [facility] [address] [place] [phone] Kat Cai PA History of malignant carcinoid tumor (Primary Dx); Multiple pulmonary nodules 04/16/2025 4:00 PM EDT Office Visit Internal Medicine [facility] 175 [facility] [address] [place] [phone] Anjelica Monteiro PA COPD with asthma ([facility] V24, [facility] V28) (Primary Dx); History of malignant carcinoid tumor; Gastroesophageal reflux disease, unspecified whether esophagitis present; Obesity (BMI 30-39.9) 04/12/2025 10:50 AM EDT - 04/12/2025 11:59 PM EDT Hospital Encounter [facility] CT Scan [address] [place] [phone] History of malignant carcinoid tumor Discharge Disposition: Home or Self Care 04/02/2025 4:14 PM EDT Anesthesia Event [facility] Endoscopy [address] [place] [phone] Osmel Alejandra DO Saliga, Jesse L, MD 04/02/2025 2:21 PM EDT - 04/02/2025 11:59 PM EDT Hospital Encounter [facility] Endoscopy [address] [place] [phone] Suzy Medeiros MD Steele, Matthew G, CRNA Walsh, Michael, DO Screening for colorectal cancer Discharge Disposition: Home or Self Care from Last 3 Months Immunizations Immunization Administration Dates Next Due Influenza trivalent, 0.5mL, preservative free (Fluarix; FluLaval; Fluzone) ages 6mo and older (Afluria) 3 years and older 07/13/2016 Influenza, Unspecified 06/16/2020 Gifi SARS-CoV-2 COVID-19, mRNA, LNP-S, preservative free 08/15/2020,07/25/2020 Pneumococcal polysaccharide 23 valent (Pneumovax 23) 2yo and older 07/13/2016 Tdap Tetanus diptheria acell ular pertussis (Boostrix; Adacel) 7yo and older 09/29/2010 Surgical History Surgery Date Site/Laterality Comments SECTION PROCEDURE: IA DELIVERY ONLY; COMMENT: X1 UPPER GASTROINTESTINAL ENDOSCOPY 08/01/2020 PROCEDURE: IA UPPER GI ENDOSCOPY PERFORMED; COMMENT: Normal CHOLECYSTECTOMY 10/07/2020 PROCEDURE: IA LAPAROSCOPY SURG CHOLECYSTECTOMY SECTION, LOW TRANSVERSE INCISION [...] rhinitis DX:Allergic rh initis COPD with asthma ([facility] V2 4, [facility] V28) DX:COPD with asthma ([facility]) Tobacco abuse disorder DX:Tobacc o abuse disorder Obesity (BMI 30-39.9) DX:Obesity (BMI 30-39.9) Vitamin D deficiency DX:Vitamin D deficiency 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 For example, child and family therapist or elderly care for an older adult? [...] Orientation Straight 07/26/2024 12 :38 PM EST Last Filed Vital Signs Vital Sign Reading Time Taken Comments Blood Pressure 138/79 06/04/2025 2:24 PM EST Pulse 89 06/04/2025 2:24 PM EST Temperature 36 C (96.8 F) 06/04/2025 2:24 PM EST Respiratory Rate 16 04/18/2025 10:42 AM EDT Oxygen Saturation 97% 06/04/2025 2:24 PM EST Inhaled Oxygen Concentration - - Weight 95.3 kg (210 lb) 06/04/2025 2:24 PM EST Height 165.1 cm (5' 5 ) 05/16/2025 1:57 PM EST Body Mass Index 34.95 05/16/2025 1:57 PM EST Plan of Treatment Upcoming Encounters Date Type Department Care Team (Late st Contact Info) Description 06/19/2025 8:30 AM EST Appointment [facility] at [facility] [address] [place] [phone] 06/21/2025 11:25 AM EST Office Visit Pulmonology - [place] 175 [facility] [address] [place] [phone] Ladi Griffin, DALIA [address] [place] [phone] 02/18/2026 9:15 AM EDT Office Visit [facility] Hematology Oncology [address] [place] [phone] Gretchen Abdullahi DO [address] [place] [address] Health Maintenance Due Date Last Done Comments Hepatitis B Vaccines (1 of 3 - 19+ 3-dose series) 1995 Pneumococcal Vaccine: Pediatrics (0 to 5 Years) and At-Risk Patients (6 to 49 Years) (2 of 2 - PCV) 07/13/2017 07/13/2016 Cervical Cancer Screening: P ap Smear 03/11/2019 03/11/2016 COVID-19 Vaccine (3 - Pfizer risk series) 09/12/2020 08/15/2020, 07/25/2020 DTaP,Tdap,and Td Vaccines (2 - Td or Tdap) 09/29/2020 09/29/2010 HIV Screening 05/30/2022 Hepatitis C Screening 05/30/2022 Breast Cancer Screening 12/20/2022 12/20/2020 Influenza Vaccine (#1) 2025 0, 07/13/2016 Social Influencers of Health Screening 10/02/2025 [...] this topic Medical Devices Implanted Type Area Value Stream Coach Device Identifier Shelf Expiration Date Model / Serial / Lot Marker Cobra Johnlock - Sna - [id number] Implanted:Qty : 1 on 09/06/2024 by Lupe Trevino MD at [facility] Imaging Implants Right: Lung [employer] [id number] 05/02/2028 [id number] / NA / [id number] Sealant Progel Air Pleural 4ml - Sn/A - [id number] Implanted:Qty : 1 on 10/02/2024 by Paul Patel MD at [facility] [employer] Right: Chest CR BARD - DAVOL DIV [id number] 03/27/2026 [id number] / N/A / [id number] Procedures Procedure Name Priority Date/Time Associated Diagnosis Comments CBC WITH AUTO DIFFERENTIAL Routine 06/04/2025 2:47 PM EST Mild anemia ANTI-PARIETAL ANTIBODY Routine 06/04/2025 2:47 PM EST Mild anemia Iron deficiency INTRINSIC FACTOR BLOCKING ANTIBODY Routine 06/04/2025 2:47 PM EST Mild anemia Iron deficiency VITAMIN B12 AND FOLATE Routine 06/04/2025 2:47 PM EST Mild anemia FERRITIN Routine 06/04/2025 2:47 PM EST Mild anemia IRON AND TIBC Routine 06/04/2025 2:47 PM EST Mild anemia CBC AND DIFFERENTIAL Routine 06/04/2025 2:47 PM EST Mild anemia POC INFLUENZA A/B Routine 04/26/2025 5:5 3 PM EDT Symptoms of upper respiratory infection (URI) POC RAPID [id number], MOLECULAR Routine 04/26/2025 5:52 PM EDT Symptoms of upper respiratory infection (URI) CT CHEST WO CONTRAST Routine 04/12/2025 11:03 AM EDT History of malignant carcinoid tumor COLONOSCOPY Routine 04/02/2025 4:33 PM EDT Screening for colorectal cancer TISSUE EXAM Routine 04/02/2025 4:26 PM EDT Screening for colorectal cancer LIPID PANEL Routine 10/19/2022 SCREENING MAMMOGRAPHY BI 2-VIEW BREAST INC CAD Routine 12/20/2020 12:19 PM EDT Encounter for screening mammogram for malignant neoplasm of breast HM PAP SMEAR Routine 03/11/2016 from Last 3 Months or Most Recently Relevant to Health Maintenance Results * Vitamin B12 and folate (06/04/2025 2:47 PM EST) Vitamin B-12 307 211 - 911 pcg/mL 06/04/2025 5:32 PM EST [facility] Folate 12.6 >=5.4 ng/ml 06/04/2025 5:32 PM EST [facility] Comment:Over the counter sup plements containing high doses of biotin may interfere with this assay. If interference is suspected, patients shoud be retested after refraining from biotin supplements for 72 hours. Blood Venous blood specimen / Unknown Venipuncture / Unknown 06/04/2025 2:47 PM EST 06/04/2025 4:30 PM EST us Gretchen Abdullahi DO LAB BLOOD ORDERABLES Final Result [facility] [address] [place] [address], [place] [phone] * (ABNORMAL) CBC auto differential (06/04/2025 2:47 PM EST) [facility] WBC 7.3 4.8 - 10.8 K/mcL LAB HEMETOLOGY METHOD 06/04/2025 4:44 PM [facility] RBC 4.30 3.80 - 4.80 M/mcL LAB HEMETOLOGY METHOD 06/04/2025 4:44 PM [facility] Hemoglobin 12.5 11.5 - 16.0 g/dL LAB HEMETOLOGY METHOD 06/04/2025 4:44 PM EST [facility] Hematocrit 37.4 35.0 - 47.0 % LAB HEMETOLOGY METHOD 06/04/2025 4:44 PM [facility] MCV 86.6 79.0 - 98.0 FL LAB HEMETOLOGY METHOD 06/04/2025 4:44 PM [facility] MCH 28.9 27.0 - 32.0 pcg LAB HEMETOLOGY METHOD 06/04/2025 4:44 PM [facility] MCHC 33.4 32.0 - 37.0 g/dL LAB HEMETOLOGY METHOD 06/04/2025 4:44 PM [facility] RDW 12.9 11.0 - 15.0 % LAB HEMETOLOGY METHOD 06/04/2025 4:44 PM [facility] Platelets 273 130 - 400 K/mcL LAB HEMETOLOGY METHOD 06/04/2025 4:44 PM [facility] MPV 11.6(H) 7.0 - 11.0 FL LAB HEMETOLOGY METHOD 06/04/2025 4:44 PM [facility] NRBC 0.0 <1.0 % LAB HEMETOLOGY METHOD 06/04/2025 4:44 PM [facility] NRBC Absolute 0.00 <0.10 K/mcL LAB HEMETOLOGY METHOD 06/04/2025 4:44 PM [facility] Neutrophils Relative 64.2 % LAB HEMETOLOGY METHOD 06/04/2025 4:44 PM [facility] Lymphocytes Relative 28.3 % LAB HEMETOLOGY METHOD 06/04/2025 4:44 PM [facility] Monocytes Relative 5.5 % LAB HEMETOLOGY METHOD 06/04/2025 4:44 PM [facility] Eosinophils Relative 1.2 % LAB HEMETOLOGY METHOD 06/04/2025 4:44 PM [facility] Basophils Relative 0.4 % LAB HEMETOLOGY METHOD 06/04/2025 4:44 PM [facility] Immature Granulocytes Relative 0.4 % LAB HEMETOLOGY METHOD 06/04/2025 4:44 PM [facility] Neutrophils Absolute 4.69 1.50 - 7.00 K/mcL LAB HEMETOLOGY METHOD 06/04/2025 4:44 PM [facility] Lymphocytes Absolute 2.07 1.00 - 5.00 K/mcL LAB HEMETOLOGY METHOD 06/04/2025 4:44 PM EST [facility] Monocytes Absolute 0.40 0.20 - 1.00 K/mcL LAB HEMETOLOGY METHOD 06/04/2025 4:44 PM EST [facility] Eosinophils Absolute 0.09 0.00 - 0.50 K/mcL LAB HEMETOLOGY METHOD 06/04/2025 4:44 PM EST [facility] Basophils Absolute 0.03 0.00 - 0.20 K/mcL LAB HEMETOLOGY METHOD 06/04/2025 4:44 PM EST [facility] Immature Granulocytes Absolute 0.03 0.00 - 0.03 K/[facility] LAB HEMETOLOGY METHOD 06/04/2025 4:44 PM EST [facility] Blood Venous blood specimen / Unknown Venipuncture / Unknown 06/04/2025 2:47 PM EST 06/04/2025 4:31 PM EST Gretchen Abdullahi DO LAB BLOOD ORDERABLES Final Result [facility] [address] [place] [address], * Intrinsic factor blocking antibody (06/04/2025 2:47 PM EST) Intrinsic Factor Blocking Antibody Negative Negative 06/07/2025 11:26 AM EST [facility] Comment: Positive in 50% of persons with pernicious anemia. Very high serum levels of vitamin B12 may give false positive results for intrinsic factor antibody. No sample should be collected from a patient who has received vitamin B12 injection therapy within the past week. Test performed at [facility], [facility] [address], [place] [address] Katie Conn MD, PhD - Hand Trimmer Blood Venous blood specimen / Unknown Venipuncture / Unknown 06/04/2025 2:47 PM EST 06/04/2025 4:30 PM EST us Gretchen Abdullahi DO LAB BLOOD ORDERABLES Final Result Performing Organization Address [facility]/ZIP Co de Phone Number [facility] [address] [place] [address] * (ABNORMAL) Iron and TIBC (06/04/2025 2:47 PM EST) Iron 32(L) 40 - 150 mcg/dL 06/04/2025 5:32 PM EST [facility] TIBC 366 250 - 450 mcg/dL 06/04/2025 5:32 PM EST [facility] Iron Saturation 9(L) 15 - 50 % 5:32 PM EST [facility] Blood Venous blood specimen / Unknown Venipuncture / Unknown 06/04/2025 2:47 PM EST 06/04/2025 4:30 PM EST us Gretchen Abdullahi DO LAB BLOOD ORDERABLES Final Result Performing Organization Address [facility] de Phone Number [facility] [address] [place] [address], * Anti-parietal antibody (06/04/2025 2:47 PM EST) Gastric Parietal Cell Ab 3.3 <=20 UNITS 06/07/2025 2:52 PM EST [facility] Comment: Interpretation: Negative Test performed at [facility], [address], [place] [address] Katie Conn MD, PhD - Hand Trimmer Blood Venous blood specimen / Unknown Venipuncture / Unknown 06/04/2025 2:47 PM EST 06/04/2025 4:30 PM EST us Gretchen Abdullahi DO LAB BLOOD ORDERABLES Final Result [facility] [address] [place] [address] * Ferritin (06/04/2025 2:47 PM EST) Pathologist [facility] Ferritin 11 7 - 271 ng/mL 06/04/2025 5:33 PM EST [facility] Blood Venous blood specimen / Unknown Venipuncture / Unknown 06/04/2025 2:47 PM EST 06/04/2025 4:30 PM EST Gretchen Abdullahi DO LAB BLOOD ORDERABLES Final Result [facility] [address] [place] [address], [place] [phone] * POC Influenza A/B manually resulted (04/26/2025 5:53 PM EDT) [facility] Rapid Influenza A AGN POC Negative Negative Swab 04/26/2025 5:53 PM EDT us Roman Paz NP POINT OF CARE TEST ENTER/EDIT ORDERABLES Final Result * Poc Rapid [id number], MOLECULAR (04/26/2025 5:52 PM EDT) [facility] COVID-19/SARS- COV-2 Rapid POC Negative Negative Swab Nasopharyngeal structure / Unknown 04/26/2025 5:52 PM EDT us Roman Paz FUR GLAZER POINT OF CARE TEST ENTER/EDIT ORDERABLES Final Result * CT Chest wo Contrast (04/12/2025 11:03 AM EDT) Anatomical Region Laterality Modality Body Computed Tomogra phy 04/16/2025 10:4 7 AM EDT Impressions 04/16/2025 11:07 AM EDT Impression: 1. Partial right lower lobectomy sequela. 2. Stable numerous sub-5 mm solid pulmonary nodules. 3. No developing thoracic lymphadenopathy[place] ([id number]) -------- FINAL REPORT -------- Dictated By: Margoth Hollins Dictated Date: 04/16/2025 10:47 ET Assigned Physician: Margoth Hollins Reviewed and Electronically Signed By: Margoth Hollins Signed Date: 04/16/2025 11:07 ET Workstation ID: [id number] Transcribed By: Self Edit Transcribed Date: 04/16/2025 10:47 ET Narrative 04/16/2025 11:07 AM EDT History: Surveillance imaging status post right lower lobe anterior basal segmentectomy for carcinoid/neuroendocrine tumor 10/02/24. Comparison: 08/21/24 Technique: Helical volumetric imaging of the thorax was performed without IV contrast. DLP: 895.37 mGy/cm GE Pingboardpeed VCT Iterative reconstruction technique Findings: Right lower [...] performed withoutIV contrast. DLP: 895.37 mGy/cm GE Pingboardpeed VCT Iterative reconstruction technique Findings: Right lower [...] pulmonary nodules. 3. No developing thoracic lymphadenopathy. Ma-papeterielili JUAREZ ([id number]) -------- FINAL REPORT -------- Dictated By: Margoth Hollins Dictated Date: 04/16/2025 10:47 ET Assigned Physician: Margoth Hollins Reviewed and Electronically Signed By: Margoth Hollins Signed Date: 04/16/2025 11:07 ET Workstation ID: [id number] Transcribed By: Self Edit Transcribed Date: 04/16/2025 10:47 ET Kat JUAREZ IMG CT PROCEDURES Final Resul t * COLONOSCOPY [...] for surveillance. Narrative 04/02/2025 4:37 PM EDT [facility] GI Patient Name: Anya Xavier Procedure Date: [...] verified by the physician, the nurse, the security agent and the organic extractions technician in the pre-procedure area in the [...] reduce spontaneously). Procedure Code(s): --- Professional --- 32195, Colonoscopy, flexible; with removal of tumor(s), polyp(s), or other lesion(s) by snare technique Diagnosis Code(s): --- Professional --- D12.3, Benign neoplasm of transverse colon (hepatic flexure or splenic flexure) D12.2, Benign neoplasm of ascending colon CPT copyright 2020 [employer]. All rights reserved. The codes documented in this report are preliminary and upon health safety coordinator review may be revised to meet current compliance requirements. Suzy Medeiros MD 04/02/2025 4:37:41 PM This report has been signed electronically.Suzy Medeiros MD Number of Addenda: 0 Note Initiated On: 04/02/2025 4:12 PM Scope In: 4:18:44 PM Scope Out: 4:33:49 PM Endoscopy Department at [facility] - [address] [place] [phone] Procedure Note Suzy Medeiros MD - 04/02/2025 [facility] GI Patient Name: Anya Xavier Procedure Date: [...] the physician, the nurse, theanesthetist and the organic extractions technician in the pre-procedure area in the [...] reduce spontaneously). Procedure Code(s): --- Professional --- 79441, Colonoscopy, flexible; with removal of tumor(s), polyp(s), or other lesion(s) by snare technique Diagnosis Code(s): --- Professional --- D12.3, Benign neoplasm of transverse colon (hepatic flexure or splenic flexure) D12.2, Benign neoplasm of ascending colon CPT copyright 2020 [employer]. All rights reserved. The codes documented in this report are preliminary and upon health safety coordinator reviewmay be revised to meet current compliance requirements. Suzy Medeiros MD 04/02/2025 4:37:41 PM This report has been signed electronically.Suzy Medeiros MD Number of Addenda: 0 Note Initiated On: 04/02/2025 4:12 PM Scope In: 4:18:44 PM Scope Out: 4:33:49 PM Endoscopy Department at [facility] - [address] [place] [phone] IMPRESSION: - Three 3 to 5 mm [...] - Tubular adenoma. 04/04/2025 9:39 AM EDT [facility] at 0939 EDT Gross Description [...] one slide. BOGDAN 04/04/2025 9:39 AM EDT [facility] Disclaimer Unless otherwise specified, all tissue is 10% NB formalin fixed and paraffin embedded. 04/04/2025 9:39 AM EDT [facility] Tissue Ascending colon structure / Unknown 04/02/2025 4:26 PM EDT 04/03/2025 5:11 AM EDT Tissue specimen (specimen) Transverse colon structure / Unknown 04/02/2025 4:29 PM EDT 04/03/2025 5:11 AM EDT Suzy Medeiros MD LAB PATHOLOGY ORDERABLES Fi nal Result [facility] [address] [place] [address], * (ABNORMAL) Lipid panel (10/19/2022) LDL/HDL Ratio 5(A) 0 - 4 Triglycerides 129 0 - 150 mg/dL Cholesterol 180 0 - 200 mg/dL HDL 38(A) >=40 mg/dL LDL Cholesterol 117(A) 0 - 100 mg/dL Blood Venous blood specimen / Unknown [facility] Provider LAB BLOOD ORDERABLES Valery l Result [...] IMG XR PROCEDURES Fin al Result * Pap Smear (03/11/2016) Pap smear Negative, Abstracted Historical Provider HEALTH MAINTENANCE Final Result from Last 3 Months or Most Recently Relevant to Health Maintenance Insurance [facility] Advance Directives * Full Code - [...] currently active code status orders. Care Teams Fuel Cell Technician Relationship Specialty Start Date End Date Anjelica Monteiro PA [address] [place] [id number] PCP - General Primary Care 08/14/24
--- NOTE | 2025-06-17 08:24 | ECG_ITS ---
Test Reason : OBESITY Blood Pressure : */* mmHG Vent. Rate : 59 BPM Atrial Rate : 59 BPM P-R Int : 130 ms QRS Dur : 78 ms QT Int : 406 ms P-R-T Axes : 51 19 21 degrees QTcB Int : 401 ms Sinus bradycardia Otherwise normal ECG When compared with ECG of 28-Jun-2016 13:03, Vent. rate has decreased by 58 bpm T wave amplitude has increased in Anterior leads Referred By: Levi Baron Electronically Signed By: NISHA WHITE MD
[2025-06-17 08:30] LABS: MANUAL DIFF FLAG NO
[2025-06-17 09:02] LABS: Hematocrit 38.1 % (37.0-47.0); Hemoglobin 12.4 g/dl (12.0-16.0); Imm Gran Abs Auto 0.03 X10*3/uL (0.00-0.03); Imm Gran Pct Auto 0.5 % (0.0-0.4); Lymphocytes Absolute Auto 1.4 X10*3/uL (1.2-4.9); Mean Corpuscular HGB Conc 32.5 g/dl (31.0-35.0); Mean Corpuscular Hemoglobin 28.3 pg (27.0-33.0); Mean Corpuscular Volume 87.0 fL (80.0-98.0); NRBC Abs Auto 0.000 X10*3/uL (0.0-0.012); NRBC Pct Auto 0.0 /100WBC (0.0-0.2); Platelet Count 219 X10*3/uL (160-400); Red Blood Count 4.38 X10*6/uL (4.20-5.50); White Blood Count 5.6 X10*3/uL (4.8-10.8)
[2025-06-17 09:59] LABS: Alanine Aminotransferase 23 U/L (0-31); Albumin Level 4.2 g/dL (3.5-5.0); Alkaline Phosphatase 77 U/L (39-117); Anion Gap 11 (12-20); Aspartate Amino Transferase 25 U/L (5-31); Blood Urea Nitrogen 11 mg/dL (9-16); Calcium 9.1 mg/dL (8.4-10.2); Carbon Dioxide 25 mmol/L (22-29); Chloride 109 mmol/L (96-108); Cholesterol 162 mg/dL (<200); Estimated Glomerular Filt Rate > 60; HDL Cholesterol 31 mg/dL (>40); Iron 45 mcg/dL (30-160); Percent Iron Saturation 14 % (15-50); Potassium 3.8 mmol/L (3.3-5.1); Sodium 141 mmol/L (135-145); Total Iron Binding Capacity 319 mcg/dL (228-428); Total Protein 6.8 g/dL (6.5-8.0); Triglycerides 110 mg/dL (<150); Unsaturated Iron Binding 274 ug/dL
[2025-06-17 10:15] LABS: Ferritin 12 ng/mL (10-250)
[2025-06-17 10:22] LABS: Folate 7.7 ng/mL (> or = 4.0); Vitamin B12 314 pg/mL (200-900)
== END 2025-06-17 08:15 | disposition home or self-care (01) ==
LOC: HO.XRAY 08:14
PROVIDERS: PCP Physician Assistant; Visit Provider Surgery
DX: E66.9 Obesity, unspecified (principal); K21.9 Gastro-esophageal reflux disease without esophagitis; Z68.36 Body mass index [BMI] 36.0-36.9, adult
CPT/HCPCS: 36415; 71046; 80053; 80061; 82306; 82607; 82728; 82746; 83036; 83525; 83540; 84425; 84443; 84590; 84630; 85025; 86140; 93005

== ENCOUNTER → 2025-06-17 08:24 | Outpatient (BNV) | payer OTHER, SELFPAY | PROVIDERS: PCP Physician Assistant; Visit Provider Internal Medicine Cardiovascular Disease | DX: R00.1 Bradycardia, unspecified (principal) | CPT/HCPCS: 93010 ==

== ENCOUNTER → 2025-06-17 08:36 | Outpatient (BNV) | payer OTHER, SELFPAY | PROVIDERS: PCP Physician Assistant; Visit Provider Radiology Diagnostic Radiology | DX: E66.812 Obesity, class 2 (principal); Z68.36 Body mass index [BMI] 36.0-36.9, adult | CPT/HCPCS: 71046 ==